=== PATIENT | female | born 1940 | race Caucasian/White ===

== ENCOUNTER 2023-07-28 17:57 | Emergency (ER) | payer MEDICARE, SELFPAY ==
[2023-07-28 18:00] VITALS: BP 112/74; PULSE 57; RESP 18; TEMP 36.8; O2SAT 95; BMI 28.3
--- NOTE | 2023-07-28 18:05 | ECG_ITS ---
[facility] Test Date: 2023-07-28 Pat Name: Lanny Zamudio Department: Room: Gender: Female Fitness Trainer: : 1940 Requested By: Timothy Miles Order Number: [id number] Jania MD: Julio Sanchez M.D. Measurements Intervals [place] Rate: 55 P: 70 [place]: 232 QRS: -65 QRSD: 145 T: 84 QT: 491 QTc: 471 Interpretive Statements SINUS BRADYCARDIA WITH FIRST DEGREE AV BLOCK LEFT AXIS DEVIATION [QRS AXIS < -30] LEFT BUNDLE BRANCH BLOCK [120+ ms QRS DURATION, 80+ ms Q/S IN V1/V2, 85+ ms R IN I/aVL/V5/V6] No previous ECG available for comparison Electronically Signed On 07-29-2023 14:29:38 CDT by Julio Sanchez M.D. [email or web address]
[2023-07-28 18:11] VITALS: BP 112/74; PULSE 54; RESP 16; O2SAT 96
--- NOTE | 2023-07-28 18:34 | CTR_ITS ---
PROCEDURE INFORMATION: Exam: CT Head Without Contrast Exam date and time: 07/28/2023 7:27 PM Age: 82 years old Clinical indication: Syncope and collapse; Patient HX: EMS arrival for syncopal episode. Patient appears confused. History of advanced dementia. TECHNIQUE: Imaging protocol: Computed tomography of the head without contrast. Radiation optimization: All CT scans at this facility use at least one of these dose optimization techniques: automated exposure control; mA and/or kV adjustment per patient size (includes targeted exams where dose is matched to clinical indication); or iterative reconstruction. COMPARISON: No relevant prior studies available. RADIATION DOSE METRICS: Total DLP (mGy-cm): 2571.08 FINDINGS: Brain: No hemorrhage. Right temporal and left occipital encephalomalacia likely from prior ischemic event. No evidence of acute infarct. Chronic white matter and senescent changes. Cerebral ventricles: No ventriculomegaly. Paranasal sinuses: Visualized sinuses are grossly clear. Mastoid air cells: No mastoid effusion. Bones: No acute fracture. Soft tissues: No acute findings. CT/CT head wo con* [id number] IMPRESSION: Remote appearing ischemic changes in the right temporal and left occipital lobes. Without prior comparison, precautionary MRI could be considered for greater sensitivity of more acute/subacute event. Chronic white matter and senescent changes.
--- NOTE | 2023-07-28 18:34 | XRR_ITS ---
PROCEDURE INFORMATION: Exam: XR Chest Exam date and time: 07/28/2023 7:13 PM Age: 82 years old Clinical indication: Pain; Patient HX: Syncopal episode; AMS TECHNIQUE: Imaging protocol: Radiologic exam of the chest. Views: 1 view. COMPARISON: No relevant prior studies available. FINDINGS: Lungs: No focal consolidation. Pleural spaces: No pleural effusion. No pneumothorax. Heart/Mediastinum: No cardiomegaly. Bones/joints: No acute findings. XR/XR chest 1V portable [id number] IMPRESSION: No acute findings.
[2023-07-28] MEDS: haloperidol inj 5 mg/mL INJ 1 mL 2 MG IVP (19:06)
[2023-07-28] MEDS: sodium chloride 0.9% 1,000 ML 999 ML IV (19:07)
[2023-07-28 19:17] LABS: Basophils # 0.1 10^3/uL (0.0-0.1); Basophils % 1.1 %; Eosinophils # 0.5 10^3/uL (0.0-0.8); Eosinophils % 5.2 %; Hematocrit 43.9 % (36-47); Lymphocytes # 2.3 10^3/uL (0.8-4.8); Lymphocytes % 26.2 %; Mean Corpuscular HGB Conc 31.9 g/dL (30-55); Mean Corpuscular Hemoglobin 28.1 pg (27-33); Monocytes # 0.5 10^3/uL (0.2-0.9); Monocytes % 5.4 %; Neutrophils # 5.45 10^3/uL (1.8-7.7); Neutrophils % 61.9 %; Nucleated Red Blood Cells % 0 %; Platelet Count 308 10^3/cmm (157-399); Red Blood Count 4.99 10^6/uL (3.85-5.65); Red Cell Distribution Width 12.7 % (12.1-15.1); White Blood Count 8.82 10^3/uL (3.29-11.43)
--- NOTE | 2023-07-28 19:25 | ED_ITS ---
HPI - General Adult 2 General: Chief complaint: General Medical Stated complaint: SYNCOPE Time Seen by Provider: 07/28/23 18:17 History of Present Illness: 82-year-old female with a history of dem entia. She presents with a syncopal episode at home. She had had a bowel movement in her undergarments, and was getting changed. She collapsed on her son, and was essentially not responsive for up to 5 minutes at least per the daughter. She was not rigid. She was breathing and had a pulse. She did not turn blue. She did not respond at all to verbal or physical stimulation, even chest rubs. She did make some gurgling sounds according to the daughter. By the time EMS arrived, she was beginning to say words, and come around. She is essentially back to baseline now. She is mildly upset that she is here, and wants to go home. Associated symptoms: Deny chest pain, dyspnea, palpitations or vomiting Review of Systems 2 General: Reports: Other (History taken from family as the patient is a poor historian) Const: Denies: fever(s) or chills ENMT: Denies: throat pain Card: Denies: chest pain or palpitations Resp: Denies: dyspnea, productive cough or non-productive cough GI: Denies: abdominal pain or vomiting Physical Exam 2 Const: COMMON NORMALS: no acute distress GENERAL APPEARANCE: frail appearing; not cooperative and not ill appearing HENMT: COMMON NORMALS: normocephalic, atraumatic and Normal external nose present HEAD & SCALP: normocephalic and atraumatic FACE & SINUS: normal facial exam and face symmetric NOSE: Normal external nose present Eye: COMMON NORMALS: Equal, round and reactive pupils present and EOMs intact bilaterally PUPIL: Yes Equal, round and reactive pupils present Chest: CHEST: Yes Symmetrical chest wall rise Resp: COMMON NORMALS: normal respiratory effort, No use of accessory muscles and clear to auscultation bilaterally AUSCULTATION: clear to auscultation bilaterally Cardio: COMMON NORMALS: regular rate and regular rhythm RATE: regular rate RHYTHM: regular rhythm HEART SOUNDS: no murmurs GI: COMMON NORMALS: Soft to palpation PALPATION: Yes Soft to palpation Extremity: COMMON NORMALS: no pedal edema Neuro: BINA COMA SCALE: document GCS findings Bina coma scale eye opening: Spontaneous [place] coma scale verbal response: Confused [place] coma scale motor response: Obey commands Bina coma scale total score: 14 S PEECH: speech normal MOTOR EXAM: Pronator motor function not present and Normal motor muscle tone present throughout Psych: ATTITUDE: Yes agitated Skin: COMMON NORMALS: no rashes or lesions noted GENERAL SKIN EXAM: no rashes or lesions noted Course 2 Vital Signs: Vital signs: Vital Signs Temperature 98.3 F 07/28/23 22:06 Pulse Rate 64 07/28/23 22:06 Respiratory Rate 18 07/28/23 22:06 Blood Pressure 134/72 07/28/23 22:06 Pulse Oximetry 94 07/28/23 22:06 Oxygen Delivery Me thod Room Air 07/28/23 18:11 MDM - General Adult Medical Decision Making The patient was given a small dose of IV Haldol for agitation so the testing to be completed. Her neurological exam is nonfocal. Her pulse rate is low, in the 50s. Blood pressure is normal. She is afebrile. CBC is normal. Her creatinine is 2.3. Chest x-ray is normal. Head CT shows remote ischemic changes. Troponin did not elevated 2 hours. She does not have a UTI. She is essentially back to baseline in the ER. Discussed pros and cons of potential observation admission with the family. They have they will take her home and continue to pursue prison home facility avenues. She will return for any repeated episodes of syncope or worsening symptoms. Lab Data 07/28/23 19:09 07/28/23 19:09 Radiology Impressions Chest X-Ray 07/28/23 18:34 IMPRESSION: No acute findings. Head CT 07/28/23 18:34 IMPRESSION: Remote appearing ischemic changes in the right temporal and left occipital lobes. Without prior comparison, precautionary MRI could be considered for greater sensitivity of more acute/subacute event. Chronic white matter and senescent changes. Laboratory Results WBC 8.82 10^3/uL (3.29-11.43) 07/28/23 19:09 RBC 4.99 10^6/uL (3.85-5.65) 07/28/23 19:09 Hgb 14.00 g/dL (11.27-16.99) 07/28/23 19:09 Hct 43.9 % (36-47) 07/28/23 19:09 MCV 88.0 fl (85-98) 07/28/23 19:09 MCH 28.1 pg (27-33) 07/28/23 19:09 MCHC 31.9 g/dL (30-55) 07/28/23 19:09 RDW 12.7 % (12.1-15.1) 07/28/23 19:09 Plt Count 308 10^3/cmm (157-399) 07/28/23 19:09 MPV 10.0 fL (7.4-10.4) 07/28/23 19:09 Neut % (Auto) 61.9 % 07/28/23 19:09 Lymph % (Auto) 26.2 % 07/28/23 19:09 [place] % (Auto) 5.4 % 07/28/23 19:09 Eos % (Auto) 5.2 % 07/28/23 19:09 Baso % (Auto) 1.1 % 07/28/23 19:09 Neut # (Auto) 5.45 10^3/uL (1.8-7.7) 07/28/23 19:09 Lymph # (Auto) 2.3 10^3/uL (0.8-4.8) 07/28/23 19:09 [place] # (Auto) 0.5 10^3/uL (0.2-0.9) 07/28/23 19:09 Eos # (Auto) 0.5 10^3/uL (0.0-0.8) 07/28/23 19:09 Baso # (Auto) 0.1 10^3/uL (0.0-0.1) 07/28/23 19:09 Nucleated RBC % (auto) 0 % 07/28/23 19:09 Nucleated RBCs # 0.0 /100WBC 07/28/23 19:09 PT 14.00 SECONDS (12.1-14.9) 07/28/23 19:09 INR 1.05 (0.8-1.2) 07/28/23 19:09 APTT 29.0 SECONDS (23.9-36.7) 07/28/23 19:09 Sodium 138 mmol/L (136-145) 07/28/23 19:09 Potassium 4.2 mmol/L (3.5-5.1) 07/28/23 19:09 Chloride 98 mmol/L (98-107) 07/28/23 19:09 Carbon Dioxide 24 mmol/L (22-29) 07/28/23 19:09 Anion Gap 20.2 (5-19) H 07/28/23 19:09 BUN 31 mg/dL (8-23) H 07/28/23 19:09 Creatinine 2.3 mg/dL (0.5-0.9) H 07/28/23 19:09 GFR Calculation Not Reportable 07/28/23 19:09 Glucose 111 mg/dL (65-115) 07/28/23 19:09 Calculated Osmolality 293 mOsm/kg (285-295) 07/28/23 19:09 Calcium 9.8 mg/dL (8.5-10.5) 07/28/23 19:09 Total Bilirubin 0.6 mg/dL (0.15-1.2) 07/28/23 19:09 AST 23 U/L (0-32) 07/28/23 19:09 ALT 19 U/L (0-33) 07/28/23 19:09 Alkaline Phosphatase 228 U/L (35-105) H 07/28/23 19:09 Creatine Kinase 100 U/L (26-192) 07/28/23 19:09 Troponin T Baseline 43 ng/L (0-10) H 07/28/23 19:09 Troponin T 120 Minute 38.15 ng/L (0-10) H 07/28/23 21:00 Delta Troponin T -4.85 ABS# (0-10) L 07/28/23 21:00 NT-Pro-B Natriuret Pep 418 pg/mL (0-450) 07/28/23 19:09 Total Protein 7.9 g/dL (6.6-8.7) 07/28/23 19:09 Albumin 4.3 g/dL (3.5-5.2) 07/28/23 19:09 Globulin 3.6 g/dL (1.3-4.6) 07/28/23 19:09 Urine Color Yellow (Yellow) 07/28/23 19:45 Urine Appearance Cloudy (CLEAR) A 07/28/23 19:45 Urine pH 5 (5-7) 07/28/23 19:45 Ur Specific [place] 1.020 (1.005-1.030) 07/28/23 19:45 Urine Protein Neg (Negative) 07/28/23 19:45 Urine Glucose (UA) Norm (Normal) 07/28/23 19:45 Urine Ketones Negative (Negative) 07/28/23 19:45 Urine Blood Neg (Negative) 07/28/23 19:45 Urine Nitrate Negative (Negative) 07/28/23 19:45 Urine Bilirubin 1+ (Negative) H 07/28/23 19:45 Urine Urobilinogen 1 mg/dL (Negative) H 07/28/23 19:45 Ur Leukocyte Esterase Negative (Negative) 07/28/23 19:45 Urine RBC 0-4 /hpf (0-2) H 07/28/23 19:45 Urine WBC 15-25 /hpf (0-5) H 07/28/23 19:45 Ur Squamous Epith Cells 0-4 /hpf (0-5) H 07/28/23 19:45 Amorphous Sediment 1+ /hpf 07/28/23 19:45 Urine Bacteria 3+ /hpf (NONE) H 07/28/23 19:45 Hyaline Casts 5-10 /lpf H 07/28/23 19:45 Fine Granular Casts 0-4 /lpf H 07/28/23 19:45 Coarse Granular Casts 0-4 /lpf H 07/28/23 19:45 Urine Mucus 1+ /hpf 07/28/23 19:45 All radiology interpretation(s) finalized by discharge Discharge Plan Discharge Patient Disposition: Home Clinical Impression: Syncope Condition: Stable Discharge Orders: Discharge ED (Routine); Ordered 07/28/23 Ordered By: Timothy Everett Referrals: David Eng DO [Primary Care Provider] - 1-3 days Patient Instructions: Syncope (ED), Opioid Safety, Pain Management Activity Restrictions/Additional Instructions: Return for repeated episodes of syncope or passing out, significant worsening mental status, complaints of chest pain, any other concerning symptoms. Follow- up with your doctor early in the week. Proceed with planning for skilled facility placement Coding Level of Care Code ED Switchboard Receptionist for Jacobo Ochoa
[2023-07-28 19:46] LABS: INR 1.05 (0.8-1.2)
[2023-07-28 19:47] LABS: Troponin(5th) Baseline 43 ng/L (0-10)
[2023-07-28 19:56] LABS: Alanine Aminotransferase 19 U/L (0-33); Albumin Level 4.3 g/dL (3.5-5.2); Alkaline Phosphatase 228 U/L (35-105); Anion Gap 20.2 (5-19); Aspartate Amino Transferase 23 U/L (0-32); Blood Urea Nitrogen 31 mg/dL (8-23); Calcium 9.8 mg/dL (8.5-10.5); Carbon Dioxide 24 mmol/L (22-29); Chloride 98 mmol/L (98-107); Creatine Phosphokinase 100 U/L (26-192); Creatinine Clr Calc Pharmacy 18.0022; Globulin 3.6 g/dL (1.3-4.6); Glucose 111 mg/dL (65-115); NT Pro B Type Natriuretic Pept 418 pg/mL (0-450); Osmolality Calculated 293 mOsm/kg (285-295); Potassium 4.2 mmol/L (3.5-5.1); Sodium 138 mmol/L (136-145); Total Bilirubin 0.6 mg/dL (0.15-1.2); Total Protein 7.9 g/dL (6.6-8.7)
[2023-07-28 20:04] LABS: Add Urine Microscopic? YES; Bacteria Urine 3+ /hpf; Bilirubin Urine 1+ (Negative); Blood Urine Neg (Negative); Glucose Urine UA Norm (Normal); Ketones Urine Negative (Negative); Leukocyte Esterase Urine Negative (Negative); Mucus Urine 1+ /hpf; Nitrate Urine Negative (Negative); Protein Urine Neg (Negative); RBC Urine 0-4 /hpf (0-2); Squamous Epithelial Cell Urine 0-4 /hpf (0-5); Urine Appearance Cloudy (CLEAR); Urine Color Yellow (Yellow); Urobilinogen Urine 1 mg/dL (Negative); WBC Urine 15-25 /hpf (0-5); pH Urine 5 (5-7)
[2023-07-28 20:05] LABS: Add Urine Culture? Yes; Amorphous Sediment Urine 1+ /hpf; Coarse Granular Casts Urine 0-4 /lpf; Fine Granular Casts Urine 0-4 /lpf
--- NOTE | 2023-07-28 20:23 | PC.NURSE ---
pt unable to tolerate blood pressure cuff. notified.
[2023-07-28 21:04] VITALS: BP 134/72; PULSE 64; RESP 18; O2SAT 94
[2023-07-28 21:28] LABS: Troponin 5 2HR 38.15 ng/L (0-10)
[2023-07-28 21:29] LABS: Troponin 5 2HR Delta -4.85 ABS# (0-10)
[2023-07-28 22:06] VITALS: BP 134/72; PULSE 64; RESP 18; TEMP 36.8; O2SAT 94
== END 2023-07-28 22:07 | disposition home or self-care (01) ==
PROVIDERS: Emergency Provider Emergency Medicine; PCP Electrodiagnostic Medicine
DX: R55 Syncope and collapse (principal)
CPT/HCPCS: 70450; 71045; 80053; 81001; 82550; 83880; 84484; 85025; 85610; 85730; 87077; 87086; 87186; 93005; 96361; 96374; 99285; J1630; J7030

== ENCOUNTER 2024-03-27 16:18 | Emergency (ER) | payer MEDICARE, MEDICAID, SELFPAY ==
[2024-03-27 16:22] VITALS: BP 138/87; PULSE 80; RESP 16; TEMP 36.4; O2SAT 97
--- NOTE | 2024-03-27 16:29 | USR_ITS ---
PROCEDURE INFORMATION: Exam: US Duplex Right Lower Extremity Veins, Limited Exam date and time: 03/27/2024 5:23 PM Age: 83 years old Clinical indication: Pain; Leg, lower; Right; Additional info: Swelling/pain TECHNIQUE: Imaging protocol: Real-time duplex ultrasound of the right extremity with 2-D fischer scale, color Doppler flow and spectral waveform analysis including responses to compression and other maneuvers (when performed) with image documentation. Limited exam was focused on the right lower extremity veins. COMPARISON: No relevant prior studies available. FINDINGS: Right deep veins: Unremarkable. The common femoral, femoral, proximal profunda femoral, popliteal, posterior tibial and peroneal veins are patent without thrombus. Normal Doppler waveforms. Normal compressibility and/or augmentation response. Superficial veins: Greater saphenous vein at the saphenofemoral junction is patent without thrombus. Soft tissues: 3.1 x 2.3 x 3.9 cm popliteal [place]. US/[place] [id number] IMPRESSION: 1. No sonographic evidence of deep vein thrombosis. 2. 3.1 x 2.3 x 3.9 cm popliteal cyst.
--- NOTE | 2024-03-27 16:30 | W.ED.EXTPRO ---
Documented by User: RC Paula 03/27/24 16:55 HPI - Extremity Problem General: Chief complaint: Extremity Problem,Nontraumatic Stated complaint: possible blood clot RLE Time Seen by Provider: 03/27/24 16:21 Source: patient Mode of arrival: EMS Limitations: no limitations History of Present Illness: Patient is an 83-year-old female who arrives to the ED today from her [facility] with the request of a DVT rule out involving her right lower extremity. Unknown timing of onset, but EMS and patient states she is having pain and swelling involving the right lower leg. 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 She is not complaining of shortness of breath or difficulty breathing. She arrives in no acute distress with stable vital signs. She states she is rarely ambulatory but can ambulate with the help of a walker to the bathroom. No known injury to the right lower leg. She has no other complaints at this time. Patient is not a great historian secondary to her known dementia. MD Complaint: extremity pain and extremity swelling Onset (ago): unknown Pain Consistency: constant Location: right and lower extremity Radiation: none Relieving factors: nothing Exacerbating factors: walking Associated symptoms: Reports no associated symptoms; Deny chest pain, fever(s) or rash Context: history of DVT Related Data Allergies Allergy/AdvReac Type Severity Reaction Status Date / Time No Known Allergies Allergy Verified 03/27/24 16:31 Review of Systems Const: Denies: fever(s), chills, body aches, fatigue or malaise Card: Denies: chest pain Resp: Denies: dyspnea Musc: Reports: extremity pain and extremity swelling; Denies: neck pain, back pain, joint pain, joint swelling, joint redness, joint warmth or limited range of motion Skin/Breast: Denies: rash or erythema Neuro: Reports: difficulty walking (chronic-states she rarely ambulates and requires a walker); Denies: numbness in extremities or sensory changes Physical Exam Const: COMMON NORMALS: no acute distress, average body habitus, no limitations, healthy appearing, alert and well nourished GENERAL APPEARANCE: cooperative ORIENTATION/CONSCIOUSNESS: Yes awake, Yes oriented to person and Yes oriented to place Resp: COMMON NORMALS: normal respiratory effort and clear to auscultation bilaterally AUSCULTATION: clear to auscultation bilaterally Cardio: COMMON NORMALS: regular rate and regular rhythm RATE: regular rate RHYTHM: regular rhythm Extremity: COMMON NORMALS: full ROM, capillary refill normal and no joint enlargement GENERAL: Yes normal exam except as noted RIGHT LOWER EXTREMITY: Yes lower leg (edema when compared to L; palpable calf pain) Right lower leg: Yes neurovascular exam (normal) OTHER: distal pulses to bilateral LEs easily felt; sensation normal Neuro: SENSORIUM/ORIENTATION: Yes alert, Yes oriented to person and Yes oriented to place Skin: COMMON NORMALS: no rashes or lesions noted GENERAL SKIN EXAM: no rashes or lesions noted Course Vital Signs: Vital signs: Vital Signs Temperature 97.5 F L 03/27/24 16:22 Pulse Rate 75 03/27/24 17:04 Respiratory Rate 16 03/27/24 16:22 Blood Pressure 152/74 03/27/24 17:04 Pulse Oximetry 97 03/27/24 17:04 Discharge Plan Discharge Condition: Stable Referrals: David Eng DO [Primary Care Provider] - Sign Out Sign Out Data: Patient Sign Out occurred on 03/27/24 at 17:01. Patient's care was discussed, and care was transferred from RC Paula to RC Agrawal. Coding Level of Care Code ED Environmental Resource Specialist for Chg Fwd Documented by User: RC Agrawal 03/27/24 17:40 HPI - Extremity Problem General: Chief complaint: Extremity Problem,Nontraumatic Stated complaint: possible blood clot RLE Time Seen by Provider: 03/27/24 16:21 Related Data Allergies Allergy/AdvReac Type Severity Reaction Status Date / Time No Known Allergies Allergy Verified 03/27/24 16:31 Course Vital Signs: Vital signs: Vital Signs Temperature 97.5 F L 03/27/24 16:22 Pulse Rate 75 03/27/24 17:04 Respiratory Rate 16 03/27/24 16:22 Blood Pressure 152/74 03/27/24 17:04 Pulse Oximetry 97 03/27/24 17:04 MDM - Extremity (Nontraumatic) Medical Decision Making Patient has history of dementia, presented to the ED by ambulance [facility] with concerns swelling of right lower extremity, there were concerns of a blood clot. Ultrasound ruled this out, she had no complaints of shortness of breath or chest pain no concern for PE. Family in the room was present when I discussed discharge plan, informed them to return if there is any worsening swelling or pain reported but is not significantly out of proportion to the exam. There is no reports of trauma that would require any further imaging at this time. Her vitals have been stable throughout ED course. There was evidence of a Penaloza's cyst on the ultrasound, potential etiology is a rupture that is caused her pain, though on recheck she was stating the pain was farther up her leg, towards the right lateral hip. Reports that this pain hour and consistent with her previous reports as she was stating it was to the right lower leg on arrival. Dementia could likely be playing a role with this, however with any objective worsening informed family to have the patient seen again in the ED. They agree with discharge plan at this time, awaiting ambulance back to [facility]. All radiology interpretation(s) finalized by discharge Discharge Plan Discharge Condition: Stable Referrals: David Eng, DO [Primary Care Provider] - Sign Out Sign Out Data: Patient Sign Out occurred on 03/27/24 at 17:01. Patient's care was discussed, and care was transferred from RC Paula to RC Agrawal. Coding Level of Care Code ED Environmental Resource Specialist for Jacobo Ochoa
[2024-03-27 17:04] VITALS: BP 152/74; PULSE 75; O2SAT 97
[2024-03-27 18:07] VITALS: BP 149/80; PULSE 85; O2SAT 96
[2024-03-27 19:08] VITALS: BP 147/75; PULSE 85; O2SAT 98
--- NOTE | 2024-03-27 19:47 | PC.NURSE ---
Patient up for discharge and waiting for ride back to local long-term. Patient requested vitals to removed.
--- NOTE | 2024-03-27 20:05 | PC.NURSE ---
Nurse Freya from [facility] notified of patient discharge status.
== END 2024-03-28 00:27 | disposition home or self-care (01) ==
PROVIDERS: Emergency Provider Physician Assistant; PCP Electrodiagnostic Medicine
DX: M79.604 Pain in right leg (principal)
CPT/HCPCS: 93971; 99284

== ENCOUNTER 2024-12-11 21:48 | Emergency (ER) | payer MEDICARE, MEDICAID, SELFPAY ==
--- OUTSIDE RECORDS SUMMARY | 2024-12-11 21:51 | XMS_ITS | Encounter Summary ---
Author Organization [facility] [place] Address [address] [place] [address] Phone Care Team Providers Care Cake Icer And Packer Name Role Phone David Eng DO Primary Care Provider [phone] Encounter Details Date Type Department Care Team (Late st Contact Info) Description 04/10/2019 Orders Only [facility] [address] [place] [address] Chronic kidney disease, stage 4 (severe) (HCC) Social History Tobacco Use Types Packs/Day Years Used Date Smoking Tobacco: Former Comments Unknown Sex and Gender Information Value Date Recorded Sex Assigned at Not on file Legal Sex Female 12:39 PM EST Gender Identity Not on file Sexual Orientation Not on file documented as of this encounter Plan of Treatment Not on file documented as of this encounter Visit Diagnoses Diagnosis Chronic kidney disease, stage 4 (severe) (HCC) documented in this encounter Care Teams Cake Icer And Packer Relationship Specialty Start Date End Date David Eng DO PCP - General Family Medicine 04/16/19 documented as of this encounter
--- OUTSIDE RECORDS SUMMARY | 2024-12-11 21:51 | XMS_ITS | Continuity of Care Document ---
Author Organization [employer] ([facility]) Address [address] [place] [address] Insurance Providers Payer Plan Claims Address Claims Phone Policy Number Group Number Relation Employer Guarantor Name Guarantor Guarantor Address Guarantor Phone [employer] [address] [address], [place] [address] tel:[phone] Self Lanny Zamudio [address] [place] [id number] [employer] [id number] HMO [address] [address], [place] [address] tel:[phone] [id number] [phone] Self Lanny Zamudio [address] [place] [id number] Problems Condition ICD9 code ICD10 code SNOMED code Start Date End Date S tatus Chronic kidney disease, stage 3 unspecified N18.30 07/29/2023 Activ e Hypothyroidism, unspecified E03.9 07/29/2023 Active Bronchitis, not specified as acute or chronic J40 10/19/2024 Activ e Results Test Result Date/Time Value / Unit Interp. Refere nce Range COVID-19 Test Viral Antigen null flavor [null] 04/27/2024 06:00 PM See note NEG COVID-19 Test Viral Antigen COVID-19 Test Viral Antigen null flavor [null] 04/20/2024 06:00 PM See note NEG COVID-19 Test Viral Antigen COVID-19 Test Viral Antigen null flavor [null] 12/16/2023 05:00 PM See note NEG COVID-19 Test Viral Antigen COVID-19 Test Viral Antigen null flavor [null] 12/09/2023 05:00 PM See note NEG COVID-19 Test Viral Antigen COVID-19 Test Viral Antigen null flavor [null] 12/02/2023 05:00 PM See note NEG COVID-19 Test Viral Antigen COVID-19 Test Viral Antigen null flavor [null] 11/25/2023 05:00 PM See note NEG COVID-19 Test Viral Antigen COVID-19 Test Viral Antigen null flavor [null] 11/18/2023 05:00 PM See note NEG COVID-19 Test Viral Antigen COVID-19 Test Viral Antigen null flavor [null] 11/11/2023 05:00 PM See note NEG COVID-19 Test Viral Antigen Allergies, adverse reactions, alerts No known allergies and adverse reactions Immunizations Vaccine Route Date Status Influenza Vaccine Unassigned Route of Administration 1 Refused RSV Vaccine Unassigned Route of Administration 2024 Refused Influenza Vaccine Unassigned Route of Administration 1 Refused Influenza Vaccine Unassigned Route of Administration 1 Completed COVID-19 Vaccine Unassigned Route of Administration Completed Medications Medication Instructions Route Dosage Frequency Start Date Stop Date Indications Status benzonatate 100 mg capsule (benzonatate) 1 cap, oral, Twice A Day - PRN, Administer 1 cap po BID PRN cough Sonia Zamora oral 1.0 12.0 h 2024 Active furosemide 20 mg tablet (furosemide) 1 tab, oral, Once A Day Every Other Day oral 1.0 1.0 d 2024 Hypertensive chronic kidney disease with stage 1 through stage 4 chronic kidney disease, or unspecified chronic kidney disease Active lisinopril 20 mg tablet (lisinopril) 1, oral, Once A Day oral 1.0 1.0 d 2024 Active albuterol sulfate 2.5 mg /3 mL (0.083 %) solution for nebulization (albuterol sulfate) 1 inh, inhalation, Three Times A Day - PRN, Clinical indication dyspnea inhalatio n 1.0 8.0 h 10/24 Active prednisone 20 mg tablet (prednisone) 1, oral, Once A Day oral 1.0 1.0 d 10/24 Active Arexvy (PF) (rsvpref3 antigen-as01e (pf)) 120 mcg/0.5 mL suspension for reconstitution (Arexvy (PF) (rsvpref3 antigen-as01e (pf))) 0.5ml, intramuscular , Once - One Time intramusc ular 1.0 10/13 Active Afluria 9584-1514 (3yr up)(PF) (flu vac [id number] 36mos up(pf)) 45 mcg (15 mcg x 3)/0.5 m syringe (Afluria (3yr up)(PF) (flu vac [id number] 36mos up(pf))) 0.5ml, intramuscular , Once - One Time intramusc ular 1.0 12/08 Active Afluria 3105-3794 (3yr up)(PF) (flu vac [id number] 36mos up(pf)) 45 mcg (15 mcg x 3)/0.5 m syringe (Afluria (3yr up)(PF) (flu vac mq1443-44 36mos up(pf))) 0.5ml, intramuscular , Once - One Time intramusc ular 1.0 12/08 Active Vital Signs Date Vital Result Comment 03/28/2024 05:12 PM Body Weight (52040-2) 155.8 [lb_av ] Body Mass Index (60008-7) 30.42 kg/m2 04/01/2024 01:27 PM Temperature (8310-5) 97.8 [degF] Oxygen Saturation (22720-4) 97 % Respiratory Rate (9279-1) 17 /min Heart Rate (8867-4) 82 /min Blood Pressure Systolic (8480-6) 149 mm[Hg] Blood Pressure Diastolic (8462-4) 82 mm[Hg] 04/08/2024 01:54 PM Temperature (8310-5) 98.3 [degF] Oxygen Saturation (83198-2) 97 % Respiratory Rate (9279-1) 17 /min Heart Rate (8867-4) 65 /min Blood Pressure Systolic (8480-6) 137 mm[Hg] Blood Pressure Diastolic (8462-4) 63 mm[Hg] 04/15/2024 05:00 PM Temperature (8310-5) 98 [degF] Oxygen Saturation (74157-6) 95 % Respiratory Rate (9279-1) 18 /min Heart Rate (8867-4) 82 /min Blood Pressure Systolic (8480-6) 142 mm[Hg] Blood Pressure Diastolic (8462-4) 80 mm[Hg] 04/22/2024 09:03 AM Temperature (8310-5) 98.8 [degF] Oxygen Saturation (09461-0) 100 % Respiratory Rate (9279-1) 19 /min Heart Rate (8867-4) 83 /min Blood Pressure Systolic (8480-6) 153 mm[Hg] Blood Pressure Diastolic (8462-4) 78 mm[Hg] 04/25/2024 09:58 AM Body Weight (63950-2) 154 [lb_av] Body Mass Index (09997-5) 30.07 kg/m2 04/29/2024 09:48 AM Temperature (8310-5) 96.4 [degF] Oxygen Saturation (62347-2) 99 % Respiratory Rate (9279-1) 15 /min Heart Rate (8867-4) 56 /min Blood Pressure Systolic (8480-6) 168 mm[Hg] Blood Pressure Diastolic (8462-4) 90 mm[Hg] 05/06/2024 09:17 AM Temperature (8310-5) 97.9 [degF] Oxygen Saturation (41431-0) 96 % Respiratory Rate (9279-1) 17 /min Heart Rate (8867-4) 71 /min Blood Pressure Systolic (8480-6) 145 mm[Hg] Blood Pressure Diastolic (8462-4) 63 mm[Hg] 05/13/2024 02:43 PM Temperature (8310-5) 98.2 [degF] Oxygen Saturation (41908-9) 95 % Respiratory Rate (9279-1) 16 /min Heart Rate (8867-4) 66 /min Blood Pressure Systolic (8480-6) 105 mm[Hg] Blood Pressure Diastolic (8462-4) 56 mm[Hg] 05/20/2024 11:18 AM Temperature (8310-5) 97.8 [degF] Oxygen Saturation (13144-8) 98 % Respiratory Rate (9279-1) 17 /min Heart Rate (8867-4) 65 /min Blood Pressure Systolic (8480-6) 171 mm[Hg] Blood Pressure Diastolic (8462-4) 77 mm[Hg] 05/26/2024 05:37 PM Body Weight (37251-5) 157.4 [lb_av ] Body Mass Index (36841-7) 30.74 kg/m2 05/27/2024 05:13 PM Temperature (8310-5) 96.2 [degF] Oxygen Saturation (17275-1) 95 % Respiratory Rate (9279-1) 15 /min Heart Rate (8867-4) 74 /min Blood Pressure Systolic (8480-6) 130 mm[Hg] Blood Pressure Diastolic (8462-4) 76 mm[Hg] 06/03/2024 11:28 AM Temperature (8310-5) 96.1 [degF] Oxygen Saturation (23818-6) 98 % Respiratory Rate (9279-1) 17 /min Heart Rate (8867-4) 65 /min Blood Pressure Systolic (8480-6) 165 mm[Hg] Blood Pressure Diastolic (8462-4) 96 mm[Hg] 06/10/2024 04:35 PM Temperature (8310-5) 97.9 [degF] Oxygen Saturation (54195-9) 96 % Respiratory Rate (9279-1) 17 /min Heart Rate (8867-4) 86 /min Blood Pressure Systolic (8480-6) 151 mm[Hg] Blood Pressure Diastolic (8462-4) 79 mm[Hg] 06/17/2024 09:24 AM Temperature (8310-5) 97.8 [degF] Oxygen Saturation (49548-4) 95 % Respiratory Rate (9279-1) 14 /min Heart Rate (8867-4) 67 /min Blood Pressure Systolic (8480-6) 123 mm[Hg] Blood Pressure Diastolic (8462-4) 84 mm[Hg] 06/24/2024 02:56 PM Temperature (8310-5) 97.9 [degF] Oxygen Saturation (37189-5) 96 % Respiratory Rate (9279-1) 17 /min Heart Rate (8867-4) 67 /min Blood Pressure Systolic (8480-6) 128 mm[Hg] Blood Pressure Diastolic (8462-4) 77 mm[Hg] 06/25/2024 06:01 PM Body Weight (32706-2) 156.6 [lb_av ] Body Mass Index (36169-9) 30.58 kg/m2 09/30/2024 10:35 AM Body Weight (44233-5) 159.8 [lb_av ] Body Mass Index (10832-1) 31.21 kg/m2 09/28/2024 03:18 PM Body Weight (91682-4) 159.6 [lb_av ] Body Mass Index (46002-0) 31.17 kg/m2 10/26/2024 03:45 PM Body Weight (50148-2) 161.6 [lb_av ] Body Mass Index (98021-0) 31.56 kg/m2 10/07/2024 09:54 AM Temperature (8310-5) 97.3 [degF] Oxygen Saturation (96649-9) 95 % Respiratory Rate (9279-1) 20 /min Heart Rate (8867-4) 70 /min Blood Pressure Systolic (8480-6) 171 mm[Hg] Blood Pressure Diastolic (8462-4) 85 mm[Hg] 09/30/2024 05:44 PM Temperature (8310-5) 98 [degF] Oxygen Saturation (24083-9) 94 % Respiratory Rate (9279-1) 19 /min Heart Rate (8867-4) 78 /min Blood Pressure Systolic (8480-6) 156 mm[Hg] Blood Pressure Diastolic (8462-4) 82 mm[Hg] 10/28/2024 02:43 PM Temperature (8310-5) 97.7 [degF] Oxygen Saturation (42850-0) 92 % Respiratory Rate (9279-1) 16 /min Heart Rate (8867-4) 84 /min Blood Pressure Systolic (8480-6) 137 mm[Hg] Blood Pressure Diastolic (8462-4) 86 mm[Hg] 10/14/2024 02:43 PM Temperature (8310-5) 97.7 [degF] Oxygen Saturation (28423-0) 94 % Respiratory Rate (9279-1) 16 /min Heart Rate (8867-4) 70 /min Blood Pressure Systolic (8480-6) 149 mm[Hg] Blood Pressure Diastolic (8462-4) 83 mm[Hg] 10/21/2024 01:09 PM Temperature (8310-5) 98.4 [degF] Oxygen Saturation (31799-4) 97 % Respiratory Rate (9279-1) 17 /min Heart Rate (8867-4) 79 /min Blood Pressure Systolic (8480-6) 117 mm[Hg] Blood Pressure Diastolic (8462-4) 86 mm[Hg] 09/29/2024 04:02 PM Body Weight (27621-3) 159 [lb_av] Body Mass Index (57362-1) 31.05 kg/m2 11/04/2024 03:53 PM Temperature (8310-5) 97.3 [degF] Oxygen Saturation (25232-4) 94 % Respiratory Rate (9279-1) 17 /min Heart Rate (8867-4) 69 /min Blood Pressure Systolic (8480-6) 140 mm[Hg] Blood Pressure Diastolic (8462-4) 81 mm[Hg] 09/09/2024 01:50 PM Temperature (8310-5) 98 [degF] Oxygen Saturation (28142-0) 100 % Respiratory Rate (9279-1) 16 /min Heart Rate (8867-4) 68 /min Blood Pressure Systolic (8480-6) 167 mm[Hg] Blood Pressure Diastolic (8462-4) 73 mm[Hg] 09/16/2024 10:52 AM Temperature (8310-5) 97.2 [degF] Oxygen Saturation (25701-5) 94 % Respiratory Rate (9279-1) 17 /min Heart Rate (8867-4) 69 /min Blood Pressure Systolic (8480-6) 165 mm[Hg] Blood Pressure Diastolic (8462-4) 73 mm[Hg] 08/25/2024 01:48 PM Body Weight (42989-8) 156 [lb_av] Body Mass Index (13866-8) 30.46 kg/m2 2024 02:09 PM Temperature (8310-5) 99.8 [degF] Oxygen Saturation (98521-6) 98 % Respiratory Rate (9279-1) 20 /min Heart Rate (8867-4) 66 /min Blood Pressure Systolic (8480-6) 151 mm[Hg] Blood Pressure Diastolic (8462-4) 88 mm[Hg] 09/25/2024 09:39 AM Body Weight (78113-7) 161.8 [lb_av ] Body Mass Index (67330-3) 31.6 kg/m2 09/02/2024 03:18 PM Temperature (8310-5) 98 [degF] Oxygen Saturation (11565-8) 95 % Respiratory Rate (9279-1) 17 /min Heart Rate (8867-4) 82 /min Blood Pressure Systolic (8480-6) 139 mm[Hg] Blood Pressure Diastolic (8462-4) 75 mm[Hg] 11/11/2024 03:16 PM Temperature (8310-5) 97.5 [degF] Oxygen Saturation (77209-2) 98 % Respiratory Rate (9279-1) 17 /min Heart Rate (8867-4) 74 /min Blood Pressure Systolic (8480-6) 129 mm[Hg] Blood Pressure Diastolic (8462-4) 70 mm[Hg] 11/18/2024 12:53 PM Temperature (8310-5) 97.3 [degF] Oxygen Saturation (49331-1) 100 % Respiratory Rate (9279-1) 18 /min Heart Rate (8867-4) 89 /min Blood Pressure Systolic (8480-6) 164 mm[Hg] Blood Pressure Diastolic (8462-4) 79 mm[Hg] 11/24/2024 08:14 AM Temperature (8310-5) 97.3 [degF] 11/25/2024 11:14 AM Body Weight (24770-6) 160.8 [lb_av ] Body Mass Index (39521-5) 31.4 kg/m2 11/25/2024 07:55 PM Temperature (8310-5) 97.8 [degF] Oxygen Saturation (12557-5) 95 % Respiratory Rate (9279-1) 16 /min Heart Rate (8867-4) 80 /min Blood Pressure Systolic (8480-6) 141 mm[Hg] Blood Pressure Diastolic (8462-4) 84 mm[Hg] 12/02/2024 08:28 AM Temperature (8310-5) 98.3 [degF] Oxygen Saturation (57702-0) 98 % Respiratory Rate (9279-1) 20 /min Heart Rate (8867-4) 85 /min Blood Pressure Systolic (8480-6) 146 mm[Hg] Blood Pressure Diastolic (8462-4) 71 mm[Hg] 12/08/2024 06:59 PM Temperature (8310-5) 97.6 [degF] 12/09/2024 01:52 PM Temperature (8310-5) 97.6 [degF] 12/09/2024 01:53 PM Oxygen Saturation (10243-1) 98 % Respiratory Rate (9279-1) 18 /min Heart Rate (8867-4) 80 /min Blood Pressure Systolic (8480-6) 142 mm[Hg] Blood Pressure Diastolic (8462-4) 72 mm[Hg] 12/09/2024 09:13 PM Temperature (8310-5) 98.3 [degF] 12/10/2024 08:48 AM Temperature (8310-5) 98 [degF] 12/10/2024 07:10 PM Temperature (8310-5) 97.5 [degF] Social History No smoking Hx information available Encounters Type CPT Code Date Location Provider Indication s encounter report 07/29/2023 02:1 9 PM - 03/27/2024 04:16 PM Goldy Segura DO 01
--- OUTSIDE RECORDS SUMMARY | 2024-12-11 21:51 | XMS_ITS | Data Portability ---
Author Organization [facility] Kirti Siegel [facility] Address [address] [address] Assessment No assessment recorded. Plan of Treatment Reminders Order Date Submit Date Provider Last Modified By Organization Details Last Modified Time Details Appointments None record ed. Lab None record ed. Referral None record ed. Procedures None record ed. Surgeries None record ed. Imaging None record ed. Medication Orders None record ed. Patient TargetsNo targets recorded. Patient Instructions Encounter Date Encounter Id Patient Instructions Last Modified By Organization Details Last Modified Time 08/13/2024 [id number] Doing well, mood good. No issues per staff. [email or web address] Not available 08/13/2024 14:24:40 09/17/2024 [id number] GFR in August 24, stable. Blood pressure high with occ lows, no changes made. [email or web address] Not available 09/17/2024 12:02:37 10/12/2024 [id number] Doing well. Cr i s stable at 1.9 [email or web address] Not available 10/12/2024 14:39:54 10/19/2024 [id number] tx with prednisone 20mg x 5 days. albuterol nebulizer x 5days. [email or web address] Not available 10/19/2024 15:31:33 11/02/2024 [id number] No issues per staff, mood good. [email or web address] Not available 11/02/2024 13:52:02 Reason for Referral None Reported. Problems Name Problem SNOMED Code Status Onset Date Resolution Date Notes Provider Name and Address Organization Details Recorded Time Hyperten sive disorder 96029332 Completed 201306/24/2013 Hyperten anne-marie - Status is Inactive ; 06/25/19 14 10:31AM by Jesse Harrison MD, Annotati on/Adden dum; Promoted ; acuity set as *; Not Available [facility] 3 03:18:14 Kidney disease 09057011 Active 2015 Kidney Disease; 07/21/19 16 9:50AM by Roberta Zamudio LPN, Office Visit; Promoted ; acuity set as *; Not Available [facility] 3 03:18:14 Hypothyr oidism 81553010 Active 2021 HYPOTHYR OIDISM; Recorded 07/18/19 22 11:25AM by Marlon Mancia al Summary; Promoted ; acuity set as *; Not Available [facility] 3 03:18:14 Severe dementia 56593711645 4105 Active 2023 David Eng, [address], [address] [place] [address] , [facility] 4 18:33:11 [facility] hyperten anne-marie 68037190 Active [address], [address] [place] [address] , [facility] 4 18:38:10 Chronic kidney disease stage 3 179166635 Active [address], [address] [place] [address] , [facility] 4 18:38:12 Inapprop riate sexual behavior 738744324 Active 2023 LUCIE dinh [facility] 4 14:04:33 Edema of left lower leg 048279732 Active 2024 LUCIE dinh [facility]CV[facility]ha 5 15:38:20 Need for personal care assistan 28412294964 753445 Active 2024 LUCIE dinh [facility], LSivakumar. 5 11:34:55 Problem Notes None recorded. Medical Equipment None Reported. Allergies No known drug allergies Medications Name Sig Start Date Stop Date Status Note LastModified by Organization Details LastModified Time atorvasta tin 40 mg tablet 1 tablet every day in the evening active Not Available Not Available No t Available carvedilo l 6.25 mg tablet TAKE 1 TABLET TWICE DAILY active Not Available Not Available No t Available donepezil 10 mg tablet TAKE 1 TABLET BY MOUTH EVERY DAY FOR MEMORY 07/09 completed Not Available Not Available Not Available lisinopri l 20 mg tablet active Not Available Not Available Not Available sertralin e 100 mg tablet active Not Available Not Available Not Available allopurin ol 100 mg tablet TAKE 1 TABLET EVERY DAY active Not Available Not Available No t Available aspirin 81 mg tablet,de layed release Take 1 tablet every day by oral route. active Not Available Not Available No t Available tramadol 50 mg tablet Take 1 tablet every day by oral route at bedtime. 07/09 completed Not Available Not Available Not Available triamcino lone acetonide 0.1 % topical cream APPLY A THIN LAYER TO THE AFFECTED AREA(S) BY TOPICAL ROUTE 2 TIMES PER DAY 07/09 completed Not Available Not Available Not Available levothyro xine 100 mcg tablet TAKE 1 TABLET EVERY DAY active Not Available Not Available No t Available nifedipin e ER 60 mg tablet,ex tended release 24 hr active Not Available Not Available Not Available cephalexi n 500 mg capsule active Not Available Not Available Not Available erythromy rita 5 mg/gram (0.5 %) eye ointment APPLY A 1 CM RIBBON INTO THE LOWER CONJUNCT IVAL SAC(S) OF THE AFFECTED EYE(S) 5 TIMES PER DAY active Not Available Not Available No t Available lisinopri l 10 mg tablet Take 1 tablet every day by oral route. active Not Available Not Available No t Available sertralin e 25 mg tablet TAKE 1 TABLET EVERY DAY active Not Available Not Available No t Available allopurin ol 300 mg tablet daily 07/09 completed 8; Recorded 06/20/19 16 2:03PM by Roberta Zamudio LPN (Authori katie through Jesse Harrison MD), Refill Request; Refill Quantity : 90; Tablet; Not Available Not Available Not Available hydrochlo rothiazid e 25 mg tablet Take 1 tablet every day by oral route. 07/09 completed nely/rb; 8; Recorded 04/28/19 16 9:09AM by Roberta Zamudio LPN (Authori zed through Jesse Harrison MD), Refill Request; Refill Quantity : 30; Tablet; Not Available Not Available Not Available furosemid e 20 mg tablet TAKE 1 TABLET EVERY DAY active Not Available Not Available No t Available levofloxa rita 500 mg tablet active Not Available Not Available No t Available nifedipin e ER 60 mg tablet,ex tended release TAKE 1 TABLET EVERY DAY active Not Available Not Available No t Available lisinopri l 40 mg tablet active Not Available Not Available Not Available sertralin e 50 mg tablet active Not Available Not Available Not Available loratadin e 10 mg tablet active Not Available Not Available Not Available Laxative (bisacody l) 5 mg tablet,de layed release active Not Available Not Available Not Available donepezil 10 mg disintegr ating tablet DISSOLVE 1 TABLET ON THE TONGUE ONE TIME DAILY active Not Available Not Available No t Available furosemid e daily 07/09 completed DM/MG; 53575; Recorded 09/30/19 22 2:25PM by Dasha Whitehead (Authori zed through Goldy Segura DO), Annotati on/Adden dum; Mail Order Quantity : 90 Tablet; Refill Quantity : 30; Tablet; Not Available Not Available Not Available carvedilo l twice daily 07/09 completed DM/MG; 98197; Recorded 09/30/19 22 2:25PM by Dasha Whitehead (Authori zed through Goldy Segura DO), Annotati on/Adden dum; Mail Order Quantity : 180 Tablet; Refill Quantity : 0; Not Available Not Available Not Available lisinopri l daily 07/09 completed 8; Recorded 06/16/19 16 12:17PM by Roberta Zamudio LPN (Authori zed through Jesse Harrison MD), Refill Request; Refill Quantity : 90; Tablet; Not Available Not Available Not Available Aspirin [facility] 07/09 completed Recorded 03/22/19 10:34AM by Alexandria Bugress RN, Office Visit; Not Available Not Available Not Available [facility] Levothyro xine Sodium daily 07/09 completed DM/MG; 26341; Recorded 09/30/19 2:29PM by Dasha Whitehead (Authori katie through David Eng , DO), Annotati on/Adden dum; Mail Order Quantity : 90 Tablet; Refill Quantity : 30; Tablet; Not Available Not Available Not Available donepezil daily 07/09 completed DM/Mg; 51725; Recorded 12/19/19 12:19PM by Dasha Whitehead (Authori katie through David Eng , DO), Refill Request; Mail Order Quantity : 90 Tablet; Refill Quantity : 30; Tablet; Not Available Not Available Not Available Nifedipin e ER daily 07/09 completed DM/MG; 66379; Recorded 09/30/19 2:30PM by Dasha Whitehead (Authori katie through David Eng , DO), Annotati on/Adden dum; Mail Order Quantity : 90 Tablet; Refill Quantity : 30; Tablet; Not Available Not Available Not Available Calmosept ine 0.44 %-20.6 % topical ointment active Not Available Not Available Not Available Vitals Date Recorded Body height Body mass index (BMI) Body weight Heart rate Respiratory rate Body temperature Oxygen saturation Oxygen saturation in Arterial blood by Pulse oximetry Systolic And Diastolic Provider Name and Address Organization Details Last Updated DateTime 5 152.4 cm 30.5 kg/m2 13408.4 1 g 81 /min 20 /min 97.4 [degF] 97 % 97 % 117/63 mm[Hg] LUCIE DUBON [facility] L[facility]LV[facility]haCV[facility]ha 5 14:23:06 Date Recorded Body height Body mass index (BMI) Body weight Heart rate Respiratory rate Body temperature Oxygen saturation Oxygen saturation in Arterial blood by Pulse oximetry Systolic And Diastolic Provider Name and Address Organization Details Last Updated DateTime 5 152.4 cm 30.5 kg/m2 41978.4 1 g 69 /min 17 /min 97.2 [degF] 94 % 94 % 165/73 mm[Hg] [facility]E [facility] 5 11:58:46 Date Recorded Body height Body mass index (BMI) Body weight Heart rate Respiratory rate Body temperature Oxygen saturation Oxygen saturation in Arterial blood by Pulse oximetry Systolic And Diastolic Provider Name and Address Organization Details Last Updated DateTime 5 152.4 cm 31.1 kg/m2 43469.1 9 g 70 /min 20 /min 97.3 [degF] 95 % 95 % 171/85 mm[Hg] [facility]CIE [facility] 5 14:37:59 Date Recorded Body height Body mass index (BMI) Body weight Heart rate Respiratory rate Body temperature Oxygen saturation Oxygen saturation in Arterial blood by Pulse oximetry Systolic And Diastolic Provider Name and Address Organization Details Last Updated DateTime 5 152.4 cm 31.1 kg/m2 91632.1 9 g 70 /min 16 /min 97.7 [degF] 94 % 94 % 149/83 mm[Hg] LU[facility]E [facility] 5 15:29:13 Date Recorded Body height Body mass index (BMI) Body weight Heart rate Respiratory rate Body temperature Oxygen saturation Oxygen saturation in Arterial blood by Pulse oximetry Systolic And Diastolic Provider Name and Address Organization Details Last Updated DateTime 5 152.4 cm 31.4 kg/m2 15857.3 7 g 84 /min 16 /min 97.7 [degF] 92 % 92 % 137/86 mm[Hg] [facility] 5 13:49:44 Social History None recorded. Functional Status Question Answer Note LastModified by Organizat ion Details LastModified Time Do you use any illicit or recreational drugs? No [email or web address] Information not available 06/06/2022 Do you or have you ever used any other forms of tobacco or nicotine? No Information not available 06/06/2022 What is your level of alcohol consumption? None [email or web address] Information not available 06/06/2022 Mental Status None recorded. Family History Nothing Reported. Medical History No medical history recorded. Gynecological HistoryNo gynecological history recorded. Obstetrics History GPAL:G 0 P 0 0 0 0 Immunizations Vaccine Type Date Status Note Provider Nam e and Address Organization Details Recorded Time Pneumococcal conjugate PCV 13 6 completed Not Available [facility] 11/02/2024 12:06:17 Tdap 6 completed Not Available [facility] 09/22/2022 02:33:24 Past Encounters Encounter ID Performer Location Encounter Start Date Encounter Closed Date Diagnosis/Indication Diagnosis SNOMED-CT Code Diagnosis ICD10 Code Diagnosis IMO Codes Diagnosis Note [id number] David Eng DO [facility] ([facility]) [address] [place] [phone] 06/06/2022 12:15:33 06/11/2022 17:57:06 Pruritic rash 82940942 L28.2 Adult heal th examination 613840843 Z00.00 I counseled patient on diet, exercise, weight, and mental health. We discussed appropriat e cancer screenings . All questions were addressed. We will obtain wellness labs with phone followup. Cardiomyopathy 69599648 I42.9 hx of. will get labs. Alzheimer's disease 2692 9004 G30.9 progressin g, family does not want any new medication s. counseled on expectatio ns. recommend C eval and home saftey eval. Chronic ki dney disease stage 4 383473411 N18.4 labs today. counseled Need for p ersonal care assistance 0241712638 8076022 Z74.1 Frail elderly 458271494 R54 Walking disability 40698 8008 R26.2 [id number] David Eng DO [facility] ([facility]) [address] [place] [phone] 07/10/2023 17:13:43 07/10/2023 18:02:27 Severe dementia 0441274888 15340 F03.C2 Patient's dementia has progressed significan tly since 1 year ago. She now has severe dementia without the ability to control her emotions. She is not oriented to person place or time. Family unable to continue to provide care at home even with 24/7 care. I agree with need for placement for long-term fpc care and a dementia facility. Patient cannot they have herself or feed herself. She is not able to cook or clean. She does ambulate with a walker. She can use the bathroom herself at times. We will continue her on donepezil and sertraline . Will get labs today A Care Coordinati on Assessment form was filled out as part of this patient's office visit today. Hypothyroidism 48883943 E03.9 Stable. Continue current dosage of Levothyrox ine. We will repeat Thyroid labs with phone followup. Essential hypertension 86413653 I10 Stop hydrochlor othiazide. Continue nifedipine , lisinopril , Carvedilol . Chronic ki dney disease stage 3 766397014 N18.30 Repeat labs today. Stop allopurino l. [id number] Goldy Segura DO [facility] ([facility]) [address] [place] [address] 5 07/30/2023 08:27:25 08/06/2023 10:22:39 Chronic kidney disease stage 3 559711159 N18.30 Severe dementia 39052266 01 62615 F03.C2 Essential hypertension 30818478 I10 [id number] Goldy Segura DO [facility] ([facility]) [address] [place] [address] 5 09/03/2023 08:18:44 09/03/2023 18:02:07 Severe dementia 7165996669 11931 F03.C2 Chronic ki dney disease stage 3 844732620 N18.30 Essential hypertension 08400165 I10 [id number] Goldy Segura DO [facility] ([facility]) [address] [place] [address] 5 10/01/2023 09:23:55 10/01/2023 16:24:10 Chronic kidney disease stage 3 802538767 N18.30 Essential hypertension 63005268 I10 Severe dementia 16512479 01 46283 F03.C2 [id number] Goldy Segura DO [facility]) [address] [place] [address] 5 11/07/2023 08:26:41 11/07/2023 16:12:42 Severe dementia 7569912054 57712 F03.C2 Chronic ki dney disease stage 3 894923057 N18.30 Essential hypertension 27202852 I10 [id number] Goldy Segura [facility] ([facility]) [address] [place] [address] 5 11/26/2023 08:35:59 11/26/2023 14:58:08 Severe dementia 8692481542 81043 F03.C2 Chronic ki dney disease stage 3 771643189 N18.30 Essential hypertension 82349021 I10 [id number] Goldy Segura [facility] ([facility]) [address] [place] [address] 5 12/10/2023 11:51:49 12/10/2023 17:18:37 Severe dementia 8775408444 71438 F03.C2 Inappropri ate sexual behavior 792835873 F65.9 [id number] Goldy Segura [facility] ([facility]) [address] [place] [address] 5 12/31/2023 13:23:30 01/01/2024 10:31:19 Inappropriate sexual behavior 866502145 F65.9 Severe dementia 32144139 01 47521 F03.C2 [id number] Goldy Segura [facility] ([facility]) [address] [place] [address] 5 02/18/2024 08:19:05 03/02/2024 16:47:45 Chronic kidney disease stage 3 345373654 N18.30 Severe dementia 50493468 01 52017 F03.C2 Essential hypertension 29254664 I10 [id number] Goldy Segura [facility] ([facility]) [address] [place] [address] 5 03/09/2024 12:30:36 03/12/2024 08:26:29 Severe dementia 0252338576 11075 F03.C2 Chronic ki dney disease stage 3 204177115 N18.30 Essential hypertension 44139162 I10 [id number] Goldy Segura [facility] ([facility]) [address] [place] [address] 5 03/17/2024 13:33:07 03/19/2024 10:01:52 Severe dementia 0125841030 89669 F03.C2 [id number] Goldy Segura [facility] ([facility]) [address] [place] [address] 5 03/30/2024 14:00:10 03/31/2024 22:57:01 Edema of left lower leg 543894873 R60.0 [id number] Goldy Segura [facility] ([facility]) [address] [place] [address] 5 04/13/2024 07:50:43 04/21/2024 07:45:03 Severe dementia 9625962635 30830 F03.C2 Essential hypertension 42389220 I10 [id number] Goldy Segura [facility] ([facility]) [address] [place] [address] 5 05/14/2024 08:00:08 05/18/2024 12:52:00 Severe dementia 2911537666 80213 F03.C2 Hypothyroidism 70021874 E03.9 Need for [facility] care assistance 2906360267 [id number] Z74.1 [id number] Goldy Segura [facility] ([facility]) [address] [place] [address] 5 05/25/2024 13:50:52 05/26/2024 07:44:47 Edema of lower extremity 345764103 R60.0 left [id number] Goldy Segura [facility] ([facility]) [address] [place] [address] 5 06/08/2024 07:56:24 06/17/2024 07:42:16 Inappropriate sexual behavior 760366398 F65.9 Severe dementia 78962016 01 60028 F03.C2 Chronic ki dney disease stage 3 403079626 N18.30 Essential hypertension 45592744 I10 [id number] Goldy Segura [facility] ([facility]) [address] [place] [address] 5 08/13/2024 08:38:18 08/18/2024 13:22:42 Severe dementia 3483029241 32908 F03.C2 Inappropri ate sexual behavior 711709864 F65.9 [id number] Goldy Segura [facility] ([facility]) [address] [phone] 09/17/2024 11:39:57 09/30/2024 08:33:44 Severe dementia 7071784923 03787 F03.C2 Essential hypertension 39480669 I10 Chronic ki dney disease stage 3 823987520 N18.30 [id number] Goldy Segura DO [facility] ([facility]) [address] [place], [place] [address] 10/12/2024 12:32:58 10/13/2024 16:49:40 Severe dementia 1092193970 46721 F03.C2 Chronic ki dney disease stage 3 701537026 N18.30 Essential hypertension 05261574 I10 [id number] Goldy Segura DO [facility] ([facility]) [address] [phone] 10/19/2024 14:25:50 10/20/2024 08:57:04 Severe dementia 1727988041 25249 F03.C2 Bronchitis 50790679 40 39843 [id number] Goldy Segura DO [facility] ([facility]) [address] [place], [place] [phone] 11/02/2024 12:05:52 11/03/2024 15:22:14 Inappropriate sexual behavior 910817397 F65.9 Severe dementia 13439441 01 43201 F03.C2 Essential hypertension 95339130 I10 Chronic ki dney disease stage 3 923831617 N18.30 Kidney disease 91702387 N28.9 Health Concerns Section Related Observation LastModified by Organization Detai ls LastModified Time None Recorded Concern Status LastModified by Organization Details LastModified Time None Recorded Advance Directives Directive None Recorded Payers Insurance Date Sequence Insurance Name Policy Number Policy Sainz Covered Member ID Sainz Member ID Guarantor Name 11/13/2024 2 [place] Lanny Zamudio [id number] Lanny Zamudio 11/13/2024 [place] [facility] [place] Lanny Zamudio [id number] Lanny Zamudio 11/02/2024 1 [employer] (MEDICARE REPLACEMENT/ ADVANTAGE - PPO) Lanny Zamudio [id number] Lanny Zamudio Notes Date Note Type Note Provider Name and Address Organization Details Recorded Time 08/13/2024 text/html Hypertension IM/FMReported by PatientHPIFor quality, patient reportshere for check-up. For severity, patient reportsnormal (<120/<80 mmhg). For alleviating factors, patient reportsmedication.R OS as noted in the HPI no complaints per staff or patient. Goldy Segura DO [address] [place] [address], [phone], [facility], LV[facility]haLVarshaC. 08/17/2024 14:01:12 09/17/2024 text/html Hypertension IM/FMReported by PatientIFor quality, patient reportshere for check-up. For severity, patient reportsnormal (<120/<80 mmhg). For alleviating factors, patient reportsmedication.R OS as noted in the HPI no complaints per staff or patient. Goldy Segura [address] [place] [address], [phone], [facility], LVarshaLVarshaC. 09/29/2024 18:06:27 10/12/2024 text/html Hypertension IM/FMReported by PatientIFor quality, patient reportshere for check-up. For severity, patient reportsnormal (<120/<80 mmhg). For alleviating factors, patient reportsmedication.R OS as noted in the HPI no complaints per staff or patient. Goldy Segura [address] [place] [address], [phone], [facility], LVarshaLVarshaC. 10/12/2024 15:20:54 10/19/2024 text/html CoughReported by PatientIFor quality, patient reportsdry. For severity, patient reportsmild. For duration, patient reportsacute (<3 weeks).ROS as noted in the HPI staff reports cough over the weekend. Goldy Segura [address] [place] [address], [phone], [facility], [place]. 10/19/2024 17:05:13 11/02/2024 text/html CoughReported by PatientHPIFor quality, patient reportsdry. For severity, patient reportsmild. For duration, patient reportsacute (<3 weeks).ROS as noted in the HPI no complaints per staff or patient. Goldy Segura, [address], [phone], [facility], Kirti 11/02/2024 15:07:38 OBGyn Episode No OBEpisode recorded.
--- OUTSIDE RECORDS SUMMARY | 2024-12-11 21:51 | XMS_ITS | Continuity of Care Document ---
Author Organization [facility] Address [address] [place] [address] Care Team Providers Care Supervisory Examiner Name Role Phone Dr. Goldy Segura DO Attending Physician [phone] Medications Medication Frequency Instructions Diagnosis Start Date End Date Last Administered benzonatate 100 mg capsule Twice A Day - PRN 1 cap, oral, Twice A Day - PRN, Administer 1 cap po BID PRN cough Sonia Zamora 025 11/02/2024 07:55 AM Calmoseptine (menthol-zinc oxide) 0.44-20.6 % ointment Every Shift small amount, topical, Every Shift, Apply to buttocks Q shift and PRN 024 12/10/2024 08:48 AM Claritin (loratadine) 10 mg tablet Once A Day - PRN 1 tab, oral, Once A Day - PRN, clinical indication: allergies 12/09/2024 07:19 AM donepezil 10 mg tablet At Bedtime 1 tab, sublingual, At Bedtime, under tongue 12/09/2024 09:15 PM Dulcolax (bisacodyl) (bisacodyl) 5 mg tablet,delayed release (DR/EC) Once A Day - PRN 2 tabs/10mg, oral, Once A Day - PRN, Give if no results from MOM 024 08/05/2023 12:43 PM Dulcolax (bisacodyl) (bisacodyl) 10 mg suppository Once A Day - PRN 1 suppository, rectal, Once A Day - PRN, Give rectally if can't take p/o, if no results from MOM Fleet Enema (sodium phosphates) 19-7 gram/118 mL enema Once A Day - PRN 1 application, rectal, Once A Day - PRN, Give fleets if no results from MOM and Dulcolax furosemide 20 mg tablet Once A Day Every Other Day 1 tab, oral, Once A Day Every Other Day I12.9 : Hypertensive chronic kidney disease with stage 1 through stage 4 chronic kidney disease, or unspecified chronic kidney disease 12/09/2024 06:22 AM Dairy Cough Drops (menthol) 7.5 mg lozenge As Needed 1, mucous membrane, As Needed, TAKE EVERY 2 HOURS PRN FOR COUGH/SORE THROAT 12/06/2024 11:36 PM levothyroxine 100 mcg tablet Once A Day 1 tab, oral, Once A Day 12/10/2024 08:48 AM lisinopril 20 mg tablet Once A Day 1, oral, Once A Day 025 12/10/2024 08:48 AM Milk of Magnesia (magnesium hydroxide) 400 mg/5 mL suspension Every 72 Hours - PRN 30 ml, oral, Every 72 Hours - PRN, if no BM in 3 days DO NOT GIVE TO RENAL PATIENTS--GO TO DULCOLAX ORDERS Refresh Tears (carboxymethylce llulose sodium) 0.5 % drops Twice A Day - PRN 1 gtt each eye, ophthalmic (eye), Twice A Day - PRN, Clinical Indication: Dry eyes 10/07/2024 07:05 AM sertraline 100 mg tablet At Bedtime 1 tab, oral, At Bedtime, clinical indication: increased sexual behaviors 12/09/2024 09:15 PM Tylenol (acetaminophen) 325 mg tablet Every 6 Hours - PRN 2 tabs/650mg, oral, Every 6 Hours - PRN, as needed for PRN pain/increased temp May give rectally if necessary 024 10/21/2024 07:39 AM Afluria (3yr up)(PF) (flu vac 36mos up(pf)) 45 mcg (15 mcg x 3)/0.5 m syringe Once - One Time 0.5ml, intramuscular, Once - One Time 025 2024 Afluria 4887-5811 (3yr up)(PF) (flu vac 36mos up(pf)) 45 mcg (15 mcg x 3)/0.5 m syringe Once - One Time 0.5ml, intramuscular, Once - One Time 025 2024 Problems Code Type Problem ICD Code Effective Date Status ICD-10 Unspecified dementia , severe, with psychotic disturbance F03.C2 07/29/2023 Active ICD-10 Hypertensive chronic kidney disease with stage 1 through stage 4 chronic kidney disease, or unspecified chronic kidney disease I12.9 07/29/2023 Active ICD-10 Chronic kidney disease, stage 3 unspecified N18 .30 07/29/2023 Active ICD-10 Hypothyroidism, unspecified E03.9 07/29/19 24 Active ICD-10 Bronchitis, not spec ified as acute or chronic J40 10/19/2024 Active ICD-10 Dry eye syndrome of unspecified lacrimal gland H04.129 07/29/2023 Active ICD-10 Paraphilia, unspecified F65.9 12/10/2023 A ctive ICD-10 Unvaccinated for COVID-19 Z28.310 07/29/2023 Active ICD-10 Do not resuscitate Z66 11/13/2023 Active Current Allergies and Intolerances Category Substance Type Reaction Severity Begin Date Status Drug Allergy No known drug allergies Allergy 04/2023 Active Vital Signs Height: 60.0 in Date / Time Temperature Pulse (per minute) Respirations (per minute) Systolic BP (mmHg) Diastolic BP (mmHg) O2 Saturation (%) Weight BMI 2024 08:48 AM 98.0 F 2024 09:13 PM 98.3 F 2024 01:53 PM 80 18 142 72 98.0 10/15/ 2025 01:52 PM 97.6 F 2024 06:59 PM 97.6 F 2024 08:28 AM 98.3 F 85 20 146 71 98.0 2024 07:55 PM 97.8 F 80 16 141 84 95.0 2024 11:14 AM 160.8 lbs 31.4 2024 08:14 AM 97.3 F 2024 12:53 PM 97.3 F 89 18 164 79 100.0 2024 03:16 PM 97.5 F 74 17 129 70 98.0 2024 03:53 PM 69 17 140 81 94.0 2024 02:43 PM 84 16 137 86 92.0 2024 03:45 PM 161.6 lbs 31.5 6 2024 01:09 PM 79 17 117 86 97.0 2024 02:43 PM 70 16 149 83 94.0 2024 09:54 AM 70 20 171 85 95.0 2024 10:35 AM 159.8 lbs 31.2 1 2024 04:02 PM 159.0 lbs 31.0 5 2024 03:18 PM 159.6 lbs 31.1 7 2024 09:39 AM 161.8 lbs 31.6 Advance Directives Directive Note Do Not Resuscitate (DNR) Insurance Providers Payer Policy type Group Name Group number Policy ID Address Ph one Medicare Part A Medicare Part A [id number] Phone: Fax: Managed Care PDPM - [employer] Like Medicare Part A [id number] 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 Status Dose Series Complete COVID-19 Vaccine 11/21/2023 Refused COVID-19 Vaccine 07/29/2023 Refused Influenza Vaccine seqirus 12/09/2024 Completed Influenza Vaccine 12/08/2024 Refused Influenza Vaccine 12/06/2023 Refused Pneumococcal Vaccine [employer] 07/30/2023 Comple driss 1 RSV Vaccine 10/13/2024 Refused RSV Vaccine 12/06/2023 Refused Procedures Not available for this record Results Not available for this record Goals Goal Date Will have a BM at least ever y 3 days for 120 days since update/last review AND/OR will not experience any complications r/t to colostomy for 120 days from update/ last review AND/OR Will not experience any GI complications for 120 days since update/last review AND/OR Will remain clean, dry between incontinent episodes thru 120days from update/last review 01/27/2025 ADL approaches will meet the resident?s needs to enhance ability, maintain abilities, or provide quality. 01/27/2025 Lanny will maintain or improve nutritio nal status through next review. 01/27/2025 Advanced directives will be honored as outlined by patient/family on daily basis thru 120days from update/last review 01/27/2025 Will adjust to change in rel ationships and accept support from staff for 120days from update/last review AND/OR Will be at ease interacting with others, expressing preferences daily for 120days from update/last review 01/27/2025 Resident will have positive experiences in daily routine without overly demanding tasks and without becoming overly stressed. 01/27/2025 Resident will hear, process, and underst and communication. 01/27/2025 Resident will not develop skin breakdown related to incontinence. 01/27/2025 Resident will remain free from falls. Resident will not exhibit si gns of drug related sedation, hypotension, or anticholinergic symptoms. 01/27/2025 Resident will have positive experiences in daily routine without overly demanding tasks and without becoming overly stressed. 01/27/2025 Will have positive responses to activities of my choice weekly through next assessment such as..... 01/27/2025 Encounters Admission Date Discharge Date Description MRN Visit Count 07/29/2023 14:19 LTPAC Admission [id number]
--- OUTSIDE RECORDS SUMMARY | 2024-12-11 21:51 | XMS_ITS | Clinical Summary ---
Author Organization [facility] Facility Address [address] [place] [address] Care Team Providers Care Software Sales Manager Name Role Phone David Eng Primary Care Provider [phone] Allergies No known active allergies Medications traMADol (ULTRAM) 50 MG tablet TAKE 1 TAB BY MOUTH THREE TIMES DAILY OCCASIONALLY NEEDED FOR PAIN 0 Active sertraline (ZOLOFT) 25 MG tablet TAKE 1 TABLET BY MOUTH ONCE DAILY FOR MOOD 0 Active NIFEdipine CC (ADALAT CC) 60 MG 24 hr tablet TAKE 1 TABLET BY MOUTH ONCE DAILY FOR BLOOD PRESSURE AND HEART 0 Active hydrOXYzine (ATARAX) 25 MG tablet 25 mg every night 0 Active furosemide (LASIX) 20 MG tablet Take 20 mg by mouth 1 (one) time each day if needed 0 Active donepezil (ARICEPT) 10 MG tablet TAKE 1 TABLET BY MOUTH ONCE DAILY FOR MEMORY 0 Active diphenhydrAMINE -acetaminophen (TYLENOL PM EXTRA STRENGTH) 25-500 MG per tablet Take 1 tablet by mouth at bed time Active carvedilol (COREG) 6.25 MG tablet Take 6.25 mg by mouth twice a day for blood pressure. 0 Active atorvastatin (LIPITOR) 40 MG tablet Take 40 mg by mouth 1 (one) time each day in the evening Active allopurinol (ZYLOPRIM) 100 MG tablet Take 100 mg by mouth 1 (one) time each day 0 Active aspirin 81 MG tablet Take 81 mg by mouth daily Active levothyroxine (SYNTHROID, LEVOTHROID) 125 MCG tablet Take 125 mcg by mouth 1 (one) time each day Active Active Problems Problem Noted Date Diagnosed Date Chronic kidney disease, stage 4 (severe) 020 Essential (primary) hypertension 04/21/2019 Immunizations Immunization Administration Dates Next Due Pneumococcal Conjugate 13-Valent 09/08/2015 Pneumococcal Polysaccharide 10/17/2011 Family History Medical History Relation Comments Gout Child Hypertension Child Heart disease Father Hypertension Father Cancer Mother Dementia Mother Diabetes Mother Heart disease Mother Hypertension Mother Cancer Sibling Dementia Sibling Diabetes Sibling Gout Sibling Hypertension Sibling Relation Status Comments Child Father Mother Sibling Social History Tobacco Use Types Packs/Day Years Used Date Smoking Tobacco: Former Smokeless Tobacco: Never Alcohol Use Standard Drinks/Week Comments Never 0 (1 standard drink = 0.6 oz pur e alcohol) AUDIT-C Answer Date Recorded Q1: How often do you have a drink containing alc ohol? Never 04/21/2019 Average Number of Drinks Not on file 020 Frequency of Binge Drinking Not on file 03/29 Comments Unknown Sex and Gender Information Value Date Recorded Sex Assigned at Not on file Legal Sex Female 12:39 PM EST Gender Identity Not on file Sexual Orientation Not on file Last Filed Vital Signs Vital Sign Reading Time Taken Comments Blood Pressure 130/64 04/21/2019 11:37 AM REEL ASSEMBLER Pulse 60 04/21/2019 11:37 AM REEL ASSEMBLER Temperature - - Respiratory Rate - - Oxygen Saturation - - Inhaled Oxygen Concentration - - Weight 78.2 kg (172 lb 4.8 oz) 04/21/2019 11:37 AM REEL ASSEMBLER Height 152.4 cm (5') 04/21/2019 11:37 AM REEL ASSEMBLER Body Mass Index 33.65 04/21/2019 11:37 AM REEL ASSEMBLER Plan of Treatment Health Maintenance Due Date Last Done Comments Influenza Vaccine (#1) 2024 Pneumococcal Vaccine: 50+ Years Completed 09/08/2015, 10/17/2011 Pneumococcal Vaccine: Peds (0 to 5 Years) and At-Risk Patients (6 to 49 Years) Discontinued 09/08/2015, 10/17/2011 Hepatitis B Vaccine Aged Out No longe r eligible based on patient's age to complete this topic Insurance [facility] Medicare Medicaid [place] ([id number]) Care Teams Software Sales Manager Relationship Specialty Start Date End Date David Eng DO PCP - General Family Medicine 04/16/19
--- NOTE | 2024-12-11 21:55 | USR_ITS ---
PROCEDURE INFORMATION: Exam: US Duplex Right Lower Extremity Veins, Limited Exam date and time: 12/11/2024 11:01 PM Age: 84 years old Clinical indication: Varicose veins of lower extremities; Additional info: Leg swelling TECHNIQUE: Imaging protocol: Real-time duplex ultrasound of the right extremity with 2-D fischer scale, color Doppler flow and spectral waveform analysis including responses to compression and other maneuvers (when performed) with image documentation. Limited exam was focused on the right lower extremity veins. COMPARISON: No relevant prior studies available. FINDINGS: Right deep veins: Unremarkable. The common femoral, femoral, proximal profunda femoral and popliteal veins are patent without thrombus. Normal Doppler waveforms. Normal compressibility and/or augmentation response. Superficial veins: Greater saphenous vein at the saphenofemoral junction is patent without thrombus. Soft tissues: A 1.6 x 0.5 x 4.2 cm circumscribed anechoic cystic lesion is seen in the popliteal fossa. Small volume subcutaneous fluid is seen anterior to this collection. US/[place] [id number] IMPRESSION: 1. Patent vasculature without evidence of DVT. 2. A 4.2 cm popliteal fossa Penaloza's cyst with associated edema of the posterior knee. Findings could represent a component of ruptured Penaloza's cyst or edema of unknown source. Correlate for systemic source or cellulitis.
[2024-12-11 22:00] VITALS: BP 166/85; PULSE 98; RESP 18; TEMP 36.8; O2SAT 94; BMI 28.5
[2024-12-11 22:03] VITALS: BP 155/74; PULSE 90; O2SAT 98
--- NOTE | 2024-12-11 22:06 | ED_ITS ---
HPI - Extremity Problem 2 General: Chief complaint: Extremity Problem,Nontraumatic Stated complaint: LEG SWELLING Time Seen by Provider: 12/11/24 21:49 Source: patient and EMS Mode of arrival: EMS Limitations: no limitations History of Present Illness: 84-year-old female is here from [facility] complaining of some right leg swelling and slight erythema. Swellings been going on for 2 days she complains of some pain she rates it at 10 denies any injuries denies any fevers denies any worse improved factors. Related Data Allergies Allergy/AdvReac Type Severity Reaction Status Date / Time No Known Allergies Allergy Verified 03/27/24 16:31 Review of Systems 2 Musc: Reports: extremity pain and extremity swelling Physical Exam 2 Const: COMMON NORMALS: no acute distress, patient oriented x3 and healthy appearing HENMT: COMMON NORMALS: normocephalic and atraumatic HEAD & SCALP: n ormocephalic and atraumatic Eye: COMMON NORMALS: conjunctivae normal CONJUNCTIVA: Yes conjunctivae normal Neck/C-Spine: COMMON NORMALS: full ROM and supple Chest: COMMONS NORMALS: normal inspection of the chest Resp: COMMON NORMALS: normal respiratory effort Cardio: COMMON NORMALS: regular rate, regular rhythm and No murmurs present (Cardio) RATE: regular rate RHYTHM: regular rhythm Extremity: NARRATIVE EXTREMITY EXAM: Slight swelling to right calf with tenderness mild erythema distal pulses sensation intact Neuro: COMMON NORMALS: patient oriented x3, moves all extremities and no focal motor deficits Psych: COMMON NORMALS: mental status grossly normal, Normal thought process present and cooperative THOUGHT PROCESS: Normal thought process present Skin: COMMON NORMALS: no rashes or lesions noted and no wounds GENERAL SKIN EXAM: no rashes or lesions noted Course 2 Vital Signs: Vital signs: Vital Signs Temperature 98.3 F 12/11/24 22:00 Pulse Rate 90 12/11/24 22:03 Respiratory Rate 18 12/11/24 22:00 Blood Pressure 155/74 12/11/24 22:03 Pulse Oximetry 98 12/11/24 22:03 MDM - Extremity (Nontraumatic) Medical Decision Making Patient presents here right lower leg swelling differential include DVT, cellulitis. Patient has no signs of cellulitis here white count was normal ultrasound showed no signs of DVT does have a likely Penaloza's cyst that could be causing some of the swelling. Distal pulses intact no signs of arterial occlusion did review her labs which showed no acute abnormalities she is stable for discharge back to the [facility] return if worsening. Lab Data I reviewed the patient's lab results. 12/11/24 21:58 Laboratory Results WBC 7.94 10^3/uL (3.29-11.43) 12/11/24 21:58 RBC 4.06 10^6/uL (3.85-5.65) 12/11/24 21:58 Hgb 10.60 g/dL (11.27-16.99) L 12/11/24 21:58 Hct 34.3 % (36-47) L 12/11/24 21:58 MCV 84.5 fl (85-98) L 12/11/24 21:58 MCH 26.1 pg (27-33) L 12/11/24 21:58 MCHC 30.9 g/dL (30-55) 12/11/24 21:58 RDW 15.5 % (12.1-15.1) H 12/11/24 21:58 Plt Count 243 10^3/cmm (157-399) 12/11/24 21:58 MPV 10.2 fL (7.4-10.4) 12/11/24 21:58 Neut % (Auto) 58.3 % 12/11/24 21:58 Lymph % (Auto) 24.3 % 12/11/24 21:58 [place] % (Auto) 10.3 % 12/11/24 21:58 Eos % (Auto) 5.2 % 12/11/24 21:58 Baso % (Auto) 1.1 % 12/11/24 21:58 Neut # (Auto) 4.63 10^3/uL (1.8-7.7) 12/11/24 21:58 Lymph # (Auto) 1.9 10^3/uL (0.8-4.8) 12/11/24 21:58 [place] # (Auto) 0.8 10^3/uL (0.2-0.9) 12/11/24 21:58 Eos # (Auto) 0.4 10^3/uL (0.0-0.8) 12/11/24 21:58 Baso # (Auto) 0.1 10^3/uL (0.0-0.1) 12/11/24 21:58 Nucleated RBC % (auto) 0 % 12/11/24 21:58 Nucleated RBCs # 0.0 /100WBC 12/11/24 21:58 All radiology interpretation(s) finalized by discharge Discharge Plan Discharge Patient Disposition: Home Clinical Impression: Right leg swelling Condition: Stable Discharge Orders: Discharge ED (Routine); Ordered 12/11/24 Ordered By: Malik Escudero Referrals: David Eng DO [Primary Care Provider, [facility]] - 4-7 days Discharge Diet: Advance as tolerated Discharge Activity: Resume usual activity Patient Instructions: Leg Pain (ED) Print Language: Khmer Coding Level of Care Code ED Assistant Front Office Manager for Jacobo Ochoa
[2024-12-11 22:33] VITALS: BP 155/86; PULSE 90; O2SAT 94
[2024-12-11 22:47] LABS: Hematocrit 34.3 % (36-47); Hemoglobin 10.60 g/dL (11.27-16.99); Mean Corpuscular HGB Conc 30.9 g/dL (30-55); Mean Corpuscular Hemoglobin 26.1 pg (27-33); Mean Corpuscular Volume 84.5 fl (85-98); Nucleated Red Blood Cells % 0 %; Platelet Count 243 10^3/cmm (157-399); Red Blood Count 4.06 10^6/uL (3.85-5.65); White Blood Count 7.94 10^3/uL (3.29-11.43)
[2024-12-11 23:03] VITALS: BP 159/80; PULSE 93; O2SAT 95
[2024-12-11 23:30] VITALS: BP 152/89; PULSE 94; O2SAT 95
[2024-12-12 00:36] VITALS: BP 157/83; PULSE 90; O2SAT 94
== END 2024-12-12 00:36 | disposition home or self-care (01) ==
PROVIDERS: Emergency Provider Emergency Medicine; PCP Internal Medicine
DX: R60.0 Localized edema (principal)
CPT/HCPCS: 85025; 93971; 99284

== ENCOUNTER 2025-02-14 21:27 | Emergency (ER) | payer MEDICARE, MEDICAID, SELFPAY ==
--- OUTSIDE RECORDS SUMMARY | 2025-02-14 21:32 | XMS_ITS | Encounter Summary ---
Author Organization [facility] [employer] Address [address] [place] [address] Phone Care Team Providers Care Shredder/Granulator Operator Name Role Phone David Eng DO Primary Care Provider [phone] Encounter Details Date Type Department Care Team (Late st Contact Info) Description 04/10/2019 Orders Only [facility] [address] [place] [address] Chronic kidney disease, stage 4 [...] (HCC) documented in this encounter Care Teams Shredder/Granulator Operator Relationship Specialty Start Date End Date David Eng DO PCP - General Family Medicine 04/16/19 documented as of this encounter
--- OUTSIDE RECORDS SUMMARY | 2025-02-14 21:32 | XMS_ITS | Continuity of Care Document ---
Author Organization [employer] ([facility]) Address [address] [place] [address] Insurance Providers Payer Plan Claims Address Claims Phone Policy Number Group Number Relation Employer Guarantor Name Guarantor Guarantor Address Guarantor Phone [employer] [address] [address], [place] [address] tel:[phone] [id number] Self Lanny Zamudio [address] [place] [address] [employer] [id number] HMO [address] [address], [place] [address] tel:[phone] [id number] Self Lanny Zamudio [address] [place] [address] [employer]V [address] [address], [place] [address] tel:[phone] [id number] Self Lanny Zamudio [address] [place] [address] Problems Condition ICD9 code ICD10 code SNOMED code Start Date End Date S tatus Chronic kidney disease, stage 3 unspecified N18.30 07/29/2023 Activ e Hypothyroidism, unspecified E03.9 07/29/2023 Active Bronchitis, not specified as acute or chronic J40 10/19/2024 Activ e Synovial cyst of popliteal space [Penaloza], right knee M71.21 01/25/2025 Active Results Test Result Date/Time Value / Unit [...] Time intramusc ular 1.0 10/13 Active Afluria 8766-2198 (3yr up)(PF) (flu vac [id number] 36mos up(pf)) 45 mcg (15 mcg x 3)/0.5 m syringe (Afluria (3yr up)(PF) (flu vac [id number] 36mos up(pf))) 0.5ml, intramuscular , Once - One Time intramusc ular 1.0 12/08 Active Afluria 7724-7725 (3yr up)(PF) (flu vac [id number] 36mos up(pf)) 45 mcg (15 mcg x 3)/0.5 m syringe (Afluria (3yr up)(PF) (flu vac rz3364-04 36mos up(pf))) 0.5ml, intramuscular , Once - One Time intramusc ular 1.0 12/08 Active sertraline 100 mg tablet (sertraline) 1 and 1/2 tab, oral, At Bedtime, clinical indication: increased sexual behaviorsG miguel 1 and 1/2 tabs to equal 150mg oral 1.0 2024 Active tramadol 50 mg tablet (tramadol) 1 tab, oral, Every 6 Hours - PRN, Administer 1 tab po Q 6hrs PRN pain oral 1.0 6.0 h 01/25 Active Cough Drops (menthol) 7.6 mg lozenge (Cough Drops (menthol)) 1 lozenge, mucous membrane, Every 2 Hours - PRN, FOR COUGH/SORE THROAT 1.0 2.0 h 2024 Active tramadol 50 mg tablet (tramadol) 1 tab, oral, Three Times A Day, 1 po TID pain oral 1.0 8.0 h 02/04 Active hydrocodone-ollie taminophen 5-325 mg tablet (hydrocodone-ac etaminophen) 1, oral, Three Times A Day, Dx pain oral 1.0 8.0 h 2024 Active Vital Signs Date Vital Result Comment 03/28/2024 05:12 PM Body Weight (29824-5) 155.8 [lb_av ] Body Mass Index (26842-0) 30.42 kg/m2 04/01/2024 01:27 PM Temperature (8310-5) 97.8 [degF] Oxygen Saturation (53688-3) 97 % Respiratory Rate (9279-1) 17 /min Heart Rate (8867-4) 82 /min Blood Pressure Systolic (8480-6) 149 mm[Hg] Blood Pressure Diastolic (8462-4) 82 mm[Hg] 04/08/2024 01:54 PM Temperature (8310-5) 98.3 [degF] Oxygen Saturation (42063-6) 97 % Respiratory Rate (9279-1) 17 /min Heart Rate (8867-4) 65 /min Blood Pressure Systolic (8480-6) 137 mm[Hg] Blood Pressure Diastolic (8462-4) 63 mm[Hg] 04/15/2024 05:00 PM Temperature (8310-5) 98 [degF] Oxygen Saturation (06467-9) 95 % Respiratory Rate (9279-1) 18 /min Heart Rate (8867-4) 82 /min Blood Pressure Systolic (8480-6) 142 mm[Hg] Blood Pressure Diastolic (8462-4) 80 mm[Hg] 04/22/2024 09:03 AM Temperature (8310-5) 98.8 [degF] Oxygen Saturation (39392-2) 100 % Respiratory Rate (9279-1) 19 /min Heart Rate (8867-4) 83 /min Blood Pressure Systolic (8480-6) 153 mm[Hg] Blood Pressure Diastolic (8462-4) 78 mm[Hg] 04/25/2024 09:58 AM Body Weight (15078-0) 154 [lb_av] Body Mass Index (72775-1) 30.07 kg/m2 04/29/2024 09:48 AM Temperature (8310-5) 96.4 [degF] Oxygen Saturation (57832-2) 99 % Respiratory Rate (9279-1) 15 /min Heart Rate (8867-4) 56 /min Blood Pressure Systolic (8480-6) 168 mm[Hg] Blood Pressure Diastolic (8462-4) 90 mm[Hg] 05/06/2024 09:17 AM Temperature (8310-5) 97.9 [degF] Oxygen Saturation (74114-7) 96 % Respiratory Rate (9279-1) 17 /min Heart Rate (8867-4) 71 /min Blood Pressure Systolic (8480-6) 145 mm[Hg] Blood Pressure Diastolic (8462-4) 63 mm[Hg] 05/13/2024 02:43 PM Temperature (8310-5) 98.2 [degF] Oxygen Saturation (23648-8) 95 % Respiratory Rate (9279-1) 16 /min Heart Rate (8867-4) 66 /min Blood Pressure Systolic (8480-6) 105 mm[Hg] Blood Pressure Diastolic (8462-4) 56 mm[Hg] 05/20/2024 11:18 AM Temperature (8310-5) 97.8 [degF] Oxygen Saturation (26180-7) 98 % Respiratory Rate (9279-1) 17 /min Heart Rate (8867-4) 65 /min Blood Pressure Systolic (8480-6) 171 mm[Hg] Blood Pressure Diastolic (8462-4) 77 mm[Hg] 05/26/2024 05:37 PM Body Weight (94059-5) 157.4 [lb_av ] Body Mass Index (88107-2) 30.74 kg/m2 05/27/2024 05:13 PM Temperature (8310-5) 96.2 [degF] Oxygen Saturation (29639-9) 95 % Respiratory Rate (9279-1) 15 /min Heart Rate (8867-4) 74 /min Blood Pressure Systolic (8480-6) 130 mm[Hg] Blood Pressure Diastolic (8462-4) 76 mm[Hg] 06/03/2024 11:28 AM Temperature (8310-5) 96.1 [degF] Oxygen Saturation (31517-5) 98 % Respiratory Rate (9279-1) 17 /min Heart Rate (8867-4) 65 /min Blood Pressure Systolic (8480-6) 165 mm[Hg] Blood Pressure Diastolic (8462-4) 96 mm[Hg] 06/10/2024 04:35 PM Temperature (8310-5) 97.9 [degF] Oxygen Saturation (35155-4) 96 % Respiratory Rate (9279-1) 17 /min Heart Rate (8867-4) 86 /min Blood Pressure Systolic (8480-6) 151 mm[Hg] Blood Pressure Diastolic (8462-4) 79 mm[Hg] 06/17/2024 09:24 AM Temperature (8310-5) 97.8 [degF] Oxygen Saturation (95916-5) 95 % Respiratory Rate (9279-1) 14 /min Heart Rate (8867-4) 67 /min Blood Pressure Systolic (8480-6) 123 mm[Hg] Blood Pressure Diastolic (8462-4) 84 mm[Hg] 06/24/2024 02:56 PM Temperature (8310-5) 97.9 [degF] Oxygen Saturation (89015-4) 96 % Respiratory Rate (9279-1) 17 /min Heart Rate (8867-4) 67 /min Blood Pressure Systolic (8480-6) 128 mm[Hg] Blood Pressure Diastolic (8462-4) 77 mm[Hg] 06/25/2024 06:01 PM Body Weight (75499-8) 156.6 [lb_av ] Body Mass Index (58853-8) 30.58 kg/m2 09/30/2024 10:35 AM Body Weight (98512-6) 159.8 [lb_av ] Body Mass Index (05689-5) 31.21 kg/m2 09/28/2024 03:18 PM Body Weight (73467-6) 159.6 [lb_av ] Body Mass Index (66291-3) 31.17 kg/m2 10/26/2024 03:45 PM Body Weight (14958-2) 161.6 [lb_av ] Body Mass Index (69739-6) 31.56 kg/m2 10/07/2024 09:54 AM Temperature (8310-5) 97.3 [degF] Oxygen Saturation (36824-7) 95 % Respiratory Rate (9279-1) 20 /min Heart Rate (8867-4) 70 /min Blood Pressure Systolic (8480-6) 171 mm[Hg] Blood Pressure Diastolic (8462-4) 85 mm[Hg] 09/30/2024 05:44 PM Temperature (8310-5) 98 [degF] Oxygen Saturation (55384-1) 94 % Respiratory Rate (9279-1) 19 /min Heart Rate (8867-4) 78 /min Blood Pressure Systolic (8480-6) 156 mm[Hg] Blood Pressure Diastolic (8462-4) 82 mm[Hg] 10/28/2024 02:43 PM Temperature (8310-5) 97.7 [degF] Oxygen Saturation (93934-5) 92 % Respiratory Rate (9279-1) 16 /min Heart Rate (8867-4) 84 /min Blood Pressure Systolic (8480-6) 137 mm[Hg] Blood Pressure Diastolic (8462-4) 86 mm[Hg] 10/14/2024 02:43 PM Temperature (8310-5) 97.7 [degF] Oxygen Saturation (99912-6) 94 % Respiratory Rate (9279-1) 16 /min Heart Rate (8867-4) 70 /min Blood Pressure Systolic (8480-6) 149 mm[Hg] Blood Pressure Diastolic (8462-4) 83 mm[Hg] 10/21/2024 01:09 PM Temperature (8310-5) 98.4 [degF] Oxygen Saturation (45073-5) 97 % Respiratory Rate (9279-1) 17 /min Heart Rate (8867-4) 79 /min Blood Pressure Systolic (8480-6) 117 mm[Hg] Blood Pressure Diastolic (8462-4) 86 mm[Hg] 09/29/2024 04:02 PM Body Weight (25330-8) 159 [lb_av] Body Mass Index (61928-5) 31.05 kg/m2 11/04/2024 03:53 PM Temperature (8310-5) 97.3 [degF] Oxygen Saturation (83441-4) 94 % Respiratory Rate (9279-1) 17 /min Heart Rate (8867-4) 69 /min Blood Pressure Systolic (8480-6) 140 mm[Hg] Blood Pressure Diastolic (8462-4) 81 mm[Hg] 09/09/2024 01:50 PM Temperature (8310-5) 98 [degF] Oxygen Saturation (56062-6) 100 % Respiratory Rate (9279-1) 16 /min Heart Rate (8867-4) 68 /min Blood Pressure Systolic (8480-6) 167 mm[Hg] Blood Pressure Diastolic (8462-4) 73 mm[Hg] 09/16/2024 10:52 AM Temperature (8310-5) 97.2 [degF] Oxygen Saturation (31843-5) 94 % Respiratory Rate (9279-1) 17 /min Heart Rate (8867-4) 69 /min Blood Pressure Systolic (8480-6) 165 mm[Hg] Blood Pressure Diastolic (8462-4) 73 mm[Hg] 08/25/2024 01:48 PM Body Weight (39698-0) 156 [lb_av] Body Mass Index (82318-6) 30.46 kg/m2 2024 02:09 PM Temperature (8310-5) 99.8 [degF] Oxygen Saturation (60588-2) 98 % Respiratory Rate (9279-1) 20 /min Heart Rate (8867-4) 66 /min Blood Pressure Systolic (8480-6) 151 mm[Hg] Blood Pressure Diastolic (8462-4) 88 mm[Hg] 09/25/2024 09:39 AM Body Weight (05173-3) 161.8 [lb_av ] Body Mass Index (67506-7) 31.6 kg/m2 09/02/2024 03:18 PM Temperature (8310-5) 98 [degF] Oxygen Saturation (58820-4) 95 % Respiratory Rate (9279-1) 17 /min Heart Rate (8867-4) 82 /min Blood Pressure Systolic (8480-6) 139 mm[Hg] Blood Pressure Diastolic (8462-4) 75 mm[Hg] 11/11/2024 03:16 PM Temperature (8310-5) 97.5 [degF] Oxygen Saturation (12948-7) 98 % Respiratory Rate (9279-1) 17 /min Heart Rate (8867-4) 74 /min Blood Pressure Systolic (8480-6) 129 mm[Hg] Blood Pressure Diastolic (8462-4) 70 mm[Hg] 11/18/2024 12:53 PM Temperature (8310-5) 97.3 [degF] Oxygen Saturation (96856-6) 100 % Respiratory Rate (9279-1) 18 /min Heart Rate (8867-4) 89 /min Blood Pressure Systolic (8480-6) 164 mm[Hg] Blood Pressure Diastolic (8462-4) 79 mm[Hg] 11/24/2024 08:14 AM Temperature (8310-5) 97.3 [degF] 11/25/2024 11:14 AM Body Weight (52975-8) 160.8 [lb_av ] Body Mass Index (07078-8) 31.4 kg/m2 11/25/2024 07:55 PM Temperature (8310-5) 97.8 [degF] Oxygen Saturation (48261-7) 95 % Respiratory Rate (9279-1) 16 /min Heart Rate (8867-4) 80 /min Blood Pressure Systolic (8480-6) 141 mm[Hg] Blood Pressure Diastolic (8462-4) 84 mm[Hg] 12/02/2024 08:28 AM Temperature (8310-5) 98.3 [degF] Oxygen Saturation (45002-5) 98 % Respiratory Rate (9279-1) 20 /min Heart Rate (8867-4) 85 /min Blood Pressure Systolic (8480-6) 146 mm[Hg] Blood Pressure Diastolic (8462-4) 71 mm[Hg] 12/08/2024 06:59 PM Temperature (8310-5) 97.6 [degF] 12/09/2024 01:52 PM Temperature (8310-5) 97.6 [degF] 12/09/2024 01:53 PM Oxygen Saturation (94409-7) 98 % Respiratory Rate (9279-1) 18 /min Heart Rate (8867-4) 80 /min Blood Pressure Systolic (8480-6) 142 mm[Hg] Blood Pressure Diastolic (8462-4) 72 mm[Hg] 12/09/2024 09:13 PM Temperature (8310-5) 98.3 [degF] 12/10/2024 08:48 AM Temperature (8310-5) 98 [degF] 12/10/2024 07:10 PM Temperature (8310-5) 97.5 [degF] 12/16/2024 08:34 AM Temperature (8310-5) 98.3 [degF] Oxygen Saturation (79887-3) 98 % Respiratory Rate (9279-1) 16 /min Heart Rate (8867-4) 76 /min Blood Pressure Systolic (8480-6) 163 mm[Hg] Blood Pressure Diastolic (8462-4) 73 mm[Hg] 12/23/2024 02:56 PM Temperature (8310-5) 97.7 [degF] Oxygen Saturation (60517-0) 98 % Respiratory Rate (9279-1) 18 /min Heart Rate (8867-4) 87 /min Blood Pressure Systolic (8480-6) 151 mm[Hg] Blood Pressure Diastolic (8462-4) 81 mm[Hg] 12/26/2024 10:53 AM Body Weight (09337-9) 162.6 [lb_av ] Body Mass Index (86559-7) 31.75 kg/m2 12/30/2024 09:01 AM Temperature (8310-5) 97.4 [degF] Oxygen Saturation (26703-7) 96 % Respiratory Rate (9279-1) 17 /min Heart Rate (8867-4) 84 /min Blood Pressure Systolic (8480-6) 111 mm[Hg] Blood Pressure Diastolic (8462-4) 66 mm[Hg] 01/06/2025 05:03 PM Temperature (8310-5) 97 [degF] Oxygen Saturation (00505-7) 94 % Respiratory Rate (9279-1) 18 /min Heart Rate (8867-4) 82 /min Blood Pressure Systolic (8480-6) 140 mm[Hg] Blood Pressure Diastolic (8462-4) 88 mm[Hg] 01/13/2025 09:27 AM Temperature (8310-5) 97.3 [degF] Oxygen Saturation (20226-2) 95 % Respiratory Rate (9279-1) 16 /min Heart Rate (8867-4) 91 /min Blood Pressure Systolic (8480-6) 139 mm[Hg] Blood Pressure Diastolic (8462-4) 85 mm[Hg] 01/20/2025 12:15 PM Temperature (8310-5) 97.7 [degF] Oxygen Saturation (45892-4) 94 % Respiratory Rate (9279-1) 22 /min Heart Rate (8867-4) 88 /min Blood Pressure Systolic (8480-6) 158 mm[Hg] Blood Pressure Diastolic (8462-4) 77 mm[Hg] 01/25/2025 05:22 PM Body Weight (23449-8) 163.4 [lb_av ] Body Mass Index (39995-6) 31.91 kg/m2 01/27/2025 09:42 AM Temperature (8310-5) 98.1 [degF] Oxygen Saturation (52074-1) 93 % Respiratory Rate (9279-1) 17 /min Heart Rate (8867-4) 82 /min Blood Pressure Systolic (8480-6) 155 mm[Hg] Blood Pressure Diastolic (8462-4) 99 mm[Hg] 02/03/2025 05:33 PM Temperature (8310-5) 97.3 [degF] Oxygen Saturation (25096-7) 94 % Respiratory Rate (9279-1) 17 /min Heart Rate (8867-4) 82 /min Blood Pressure Systolic (8480-6) 148 mm[Hg] Blood Pressure Diastolic (8462-4) 88 mm[Hg] 02/10/2025 09:46 AM Temperature (8310-5) 97.8 [degF] Oxygen Saturation (09319-9) 93 % Respiratory Rate (9279-1) 16 /min Heart Rate (8867-4) 76 /min Blood Pressure Systolic (8480-6) 165 mm[Hg] Blood Pressure Diastolic (8462-4) 93 mm[Hg] Social History No smoking Hx information available Encounters Type CPT Code Date Location Provider Indication s encounter report 07/29/2023 02:1 9 PM - 03/27/2024 04:16 PM Goldy Segura DO
--- OUTSIDE RECORDS SUMMARY | 2025-02-14 21:32 | XMS_ITS | Clinical Summary ---
Author Organization [facility] Facility Address [address] [place] [address] Care Team Providers Care Visual Merchandiser Name Role Phone David Eng Primary Care Provider [phone] Allergies No known active allergies Medications traMADol [...] Comments Blood Pressure 130/64 04/21/2019 11:37 AM CUSTOM TAILOR Pulse 60 04/21/2019 11:37 AM CUSTOM TAILOR Temperature - - Respiratory Rate - - Oxygen Saturation - - Inhaled Oxygen Concentration - - Weight 78.2 kg (172 lb 4.8 oz) 04/21/2019 11:37 AM CUSTOM TAILOR Height 152.4 cm (5') 04/21/2019 11:37 AM CUSTOM TAILOR Body Mass Index 33.65 04/21/2019 11:37 AM CUSTOM TAILOR Plan of Treatment Health Maintenance Due Date Last Done Comments Influenza Vaccine (#1) 2024 Pneumococcal Vaccine: 50+ Years Completed 09/08/2015, 10/17/2011 Pneumococcal Vaccine: Peds (0 to 5 Years) and At-Risk Patients (6 to 49 Years) Discontinued 09/08/2015, 10/17/2011 Hepatitis B Vaccine Aged Out No longe r eligible based on patient's age to complete this topic Insurance [facility] Medicare Medicaid [place] (SKIN0) Care Teams Visual Merchandiser Relationship Specialty Start Date End Date David Eng DO PCP - General Family Medicine 04/16/19
[2025-02-14 21:34] VITALS: BP 158/99; PULSE 90; RESP 20; TEMP 36.6; O2SAT 94; BMI 36.3
--- NOTE | 2025-02-14 21:39 | ED_ITS ---
HPI - Skin/Abscess/Foreign Bdy General: Chief complaint: Airway/Esophagus Foreign Body Stated complaint: CHOKED ON MEDS Time Seen by Provider: 02/14/25 21:33 History of Present Illness: Patient is an 84-year-old female with past medical history of COPD, CKD, dementia, hypertension who presents to the ED with a potential foreign body. Patient lives in a facility, was taking her nighttime meds when bedside nurse was concerned after she had a small choking episode and has had she aspirated her pills, she reported no breath sounds and so called EMS. She was saturating in the mid 90s for them, had no signs of respiratory distress breath N for further evaluation. Patient is alert and oriented x 1 at baseline and not able to contribute to history. Related Data Previous Rx's ?Medication ?Instructions ?Recorded cephalexin 500 mg capsule 500 mg PO Q6H #20 caps 02/15 Allergies Allergy/AdvReac Type Severity Reaction Status Date / Time No Known Allergies Allergy Verified 03/27/24 16:31 Review of Systems General: Reports: ROS unobtainable due to mental status Physical Exam Narrative: EXAM NARRATIVE: Patient mildly agitated on arrival but well-appearing, no signs of respiratory distress, afebrile. Patient with slightly decreased breath sounds throughout but nothing adventitious, no stridor, breathing comfortably on room air, saturating in mid 90s, no accessory muscle usage, able to speak in full sentences without getting short of breath. No pooling of secretions. Abdomen soft, nontender, nondistended. Excoriations to skin to face and upper extremities. Abdomen soft, nontender nondistended. Normal sinus rhythm with mild nonpitting edema,. GCS 14, alert and oriented x 1, spontaneous and symmetrically moving all 4 extremities. Course Vital Signs: Vital signs: Vital Signs Temperature 98 F 02/14/25 21:34 Pulse Rate 86 02/15/25 01:23 Respiratory Rate 22 H 02/15/25 00:00 Blood Pressure 145/88 02/15/25 01:23 Pulse Oximetry 90 02/15/25 01:23 Oxygen Delivery Me thod Room Air 02/15/25 00:04 MDM - Skin/Abscess/Foreign Bdy Medicial Decision Making -ddx: Aspiration, airway foreign body, pill induced esophagitis, hypoxia, airway obstruction - Patient arrives after apparent choking episode in which she had decreased breath sounds, no signs of respiratory distress for EMS, arrives here saturating well, breathing comfortably, no stridor, no concern for upper airway obstruction, speaking in full sentences with no accessory muscle usage, will get chest x-ray to evaluate for any potential foreign body, monitor respiratory status for a period of time and if fine will discharge back to facility. - Chest x-ray clear for any foreign body, had mild pleural effusions, reportedly has heart failure and is on diuretics, her respiratory status is unlabored at this time, she is saturating in the high 90s, speaking in full sentences, does not clinically have rails so will not further intervene on this. When daughter came to bedside, she noted that patient was slightly more agitated than normal and had been grabbing at her groin region and so we did a straight cath which showed a moderate UTI, she had no vital signs indicating sepsis, had a reassuring abdominal exam and so we gave her a first dose of Keflex and discharged her back to her facility with the remainder of the course, encouraged to follow-up with the facility physician in a few days for reevaluation, strict return precautions given to family members and agreeable with plan of care. Lab Data Radiology Impressions Chest X-Ray 02/14/25 21:39 IMPRESSION: Moderate left and small right pleural effusions. Laboratory Results Urine Color Dark yellow (Yellow) A 02/14/25:52 Urine Appearance Cloudy (CLEAR) A 02/14/25 23:52 Urine pH 5.0 (5-7) 02/14/25 23:52 Ur Specific [place] 1.031 (1.005-1.030) H 02/14/25 23:52 Urine Protein 4+ (Negative) A 02/14/25 23:52 Urine Glucose (UA) Negative (Normal) 02/14/25 23:52 Urine Ketones Trace (Negative) 02/14/25 23:52 Urine Blood 3+ (Negative) A 02/14/25:52 Urine Nitrate Negative (Negative) 02/14/25:52 Urine Bilirubin Negative (Negative) 02/14/25 23:52 Urine Urobilinogen 1.0 mg/dL (Negative) 02/14/25 23:52 Ur Leukocyte Esterase Trace (Negative) A 02/14/25 23:52 Urine RBC 3-5 /hpf (0-2) 02/14/25 23:52 Urine WBC >100 /hpf (0-5) H 02/14/25 23:52 Ur Squamous Epith Cells 0-5 /hpf (0-5) 02/14/25 23:52 Amorphous Sediment Not Reportable 02/14/25 23:52 Urine Bacteria 4+ /hpf (NONE) H 02/14/25 23:52 Hyaline Casts 54.60 /lpf 02/14/25 23:52 All radiology interpretation(s) finalized by discharge Discharge Plan Discharge Patient Disposition: Home Clinical Impression: Choking, Acute UTI Condition: Stable Prescriptions: New cephalexin 500 mg capsule 500 mg PO Q6H Qty: 20 0RF Discharge Orders: Discharge ED (Routine); Ordered 02/15/25 Ordered By: Vimal Marina Referrals: Glody Segura DO [Primary Care Provider, Internal Medicine] Discharge Diet: Usual diet Discharge Activity: Resume usual activity Patient Instructions: Opioid Safety, Pain Management, Patient Portal & Shakira Instructions Activity Restrictions/Additional Instructions: You were seen for your possible episode of aspirating pills, you were evaluated with an x-ray which was negative and you had reassuring oxygen levels and so you were deemed stable. On your urine test, you had a moderate urinary tract infection, to treat this, take the Keflex 500 mg every 6 hours for a total of 5 days, take this with food if possible. Follow-up with your primary care physician in a week's time to reevaluate the status of your infection. Return to the ED with severe worsening of your breathing or abdominal pain, fevers, continuous vomiting, inability to eat or drink, any other emergent concerns. Print Language: Georgian Coding Level of Care Code ED Textile Cutting Machine Operator for Jacobo Ochoa
--- NOTE | 2025-02-14 21:39 | XRR_ITS ---
PROCEDURE INFORMATION: Exam: XR Chest Exam date and time: 02/14/2025 9:47 PM Age: 84 years old Clinical indication: Other: Eval for aspiration; Additional info: Potential aspiration TECHNIQUE: Imaging protocol: Radiologic exam of the chest. Views: 1 view. COMPARISON: CR XR chest 1V portable [id number] 07/28/2023 7:13 PM FINDINGS: Lungs: Unremarkable. No consolidation. Pleural spaces: Moderate left and small right pleural effusions. Heart/Mediastinum: Cardiomegaly. Bones/joints: Left shoulder ORIF with plate and screws. XR/XR chest 1V portable [id number] IMPRESSION: Moderate left and small right pleural effusions.
[2025-02-14 22:23] VITALS: BP 147/91; PULSE 94; O2SAT 94
[2025-02-15] VITALS: RESP 22
[2025-02-15] LABS: Glucose Urine UA Negative (Normal); Nitrate Urine Negative (Negative)
[2025-02-15] MEDS: oxyCODONE 5 mg IR Tab/Cap PO
[2025-02-15 00:04] VITALS: BP 137/93; PULSE 95; O2SAT 90
[2025-02-15 00:07] LABS: Add Urine Microscopic? YES; Universal Test for UA Present (0)
[2025-02-15 00:13] LABS: Specific Gravity, Urine 1.031 (1.005-1.030)
--- NOTE | 2025-02-15 01:06 | PC.NURSE ---
Called report to [facility] and they are aware of patient's diagnosis and prescription.
[2025-02-15 01:23] VITALS: BP 145/88; PULSE 86; O2SAT 90
== END 2025-02-15 01:26 | disposition home or self-care (01) ==
PROVIDERS: Emergency Provider Student in an Organized Health Care Education/Training Program; PCP Internal Medicine
DX: N39.0 Urinary tract infection, site not specified (principal); T17.998A Other foreign object in respiratory tract, part unspecified causing other injury, initial encounter; X58.XXXA Exposure to other specified factors, initial encounter; J44.9 Chronic obstructive pulmonary disease, unspecified; I12.9 Hypertensive chronic kidney disease with stage 1 through stage 4 chronic kidney disease, or unspecified chronic kidney disease; N18.9 Chronic kidney disease, unspecified
CPT/HCPCS: 71045; 81001; 87077; 87086; 87186; 99284; J9999

== ENCOUNTER 2025-02-19 15:17 | Inpatient (IN) | payer MEDICARE, MEDICAID, SELFPAY ==
[2025-02-19 15:16] VITALS: BP 150/92; PULSE 90; RESP 17; TEMP 36.7; O2SAT 94; BMI 27.3
--- OUTSIDE RECORDS SUMMARY | 2025-02-19 15:19 | XMS_ITS | Data Portability ---
Author Organization [facility] Kirti Siegel [facility] Address [address] [address] Assessment No assessment recorded. Plan of Treatment [...] Modified By Organization Details Last Modified Time 10/19/2024 [id number] tx with prednisone 20mg x 5 days. albuterol nebulizer x 5days. [email or web address] Not available 10/19/2024 15:31:33 11/02/2024 [id number] No issues per staff, mood good. [email or web address] Not available 11/02/2024 13:52:02 12/28/2024 [id number] Doing well, vitals stable. Mood good. No issues per staff. [email or web address] Not available 12/28/2024 15:09:20 01/25/2025 [id number] Bakers cyst behind right knee, staff reassured. Will schedule tramadol tid. [email or web address] Not available 01/25/2025 15:54:21 02/01/2025 [id number] staff concerned for edema, but no worse than usual, does have some abrasions on right galindo from scratching. [email or web address] Not available 02/02/2025 11:10:40 Reason for Referral None Reported. Problems Name Problem SNOMED Code Status Onset Date Resolution Date Notes Provider Name and Address Organization Details Recorded Time Hyperten sive disorder 98574836 Completed 201306/24/2013 Hyperten anne-marie - Status is Inactive ; 06/25/19 14 10:31AM by Jesse Harrison MD, Annotati on/Adden dum; Promoted ; acuity set as *; Not Available [facility] 3 03:18:14 Kidney disease 70279567 Active 2015 Kidney Disease; 07/21/19 16 9:50AM by Roberta Zamudio LPN, Office Visit; Promoted ; acuity set as *; Not Available [facility] 3 03:18:14 Hypothyr oidism 70810624 Active 2021 HYPOTHYR OIDISM; Recorded 07/18/19 22 11:25AM by Marlon Mancia al Summary; Promoted ; acuity set as *; Not Available [facility] 3 03:18:14 Severe dementia 30252828962 4105 Active [address], [address] [place] [address] , [facility] 4 18:33:11 [facility] hyperten anne-marie 59196361 Active [address] [place] [place] [address] , [facility] 4 18:38:10 Chronic kidney disease stage 3 646205965 Active 2023 [place] [address] , [facility] 4 18:38:12 Inapprop riate sexual behavior 444859843 Active 2023 LUCIE dinh [facility] 4 14:04:33 Edema of left lower leg 657429153 Active 2024 LUCIE dinh [facility] 5 15:38:20 Need for personal care assistan 45828938396 277373 Active 2024 LUCIE DUBON [facility], [facility], [facility] 5 11:34:55 Problem Notes None recorded. Medical [...] every day by oral route at bedtime. active Not Available Not Available No t Available triamcino lone acetonide 0.1 % topical [...] 16 2:03PM by Roberta Zamudio LPN (Authori zed through [...] Available furosemid e daily 07/09 completed DM/MG; 66617; Recorded 09/30/19 22 2:25PM by Dasha Whitehead (Authori zed through Goldy Segura DO), Annotati on/Adden dum; Mail Order Quantity : 90 Tablet; Refill Quantity : 30; Tablet; Not Available Not Available Not Available carvedilo l twice daily 07/09 completed DM/MG; 13908; Recorded 09/30/19 22 2:25PM by Dasha Whitehead [...] 07/09 completed Recorded 03/22/19 10:34AM by Alexandria Burgess RN, Office Visit; Not Available Not Available Not Available [facility] Levothyro xine Sodium daily 07/09 completed DM/MG; 77555; Recorded 09/30/19 2:29PM by Dasha Whitehead (Authori zed through David Eng , DO), Annotati on/Adden dum; Mail Order Quantity : 90 Tablet; Refill Quantity : 30; Tablet; Not Available Not Available Not Available donepezil daily 07/09 completed DM/Mg; 90897; Recorded 12/19/19 12:19PM by Dasha Whitehead (Authori zed through Rethink Books[employer] [email or web address]), Refill Request; Mail Order Quantity : 90 Tablet; Refill Quantity : 30; Tablet; Not Available Not Available Not Available Nifedipin e ER daily 07/09 completed DM/MG; 12321; Recorded 09/30/19 2:30PM by Dasha Whitehead (Authori zed through Rethink Bookssridevi DO), Annotati on/Adden dum; Mail Order Quantity : 90 Tablet; Refill Quantity : 30; Tablet; Not Available Not Available Not Available Calmosept ine 0.44 %-20.6 % topical ointment active Not Available Not Available Not Available Vitals Date Recorded Body height Body mass index (BMI) Body weight Heart rate Respiratory rate Body temperature Oxygen saturation Systolic And Diastolic Provider Name and Address Organization Details Last Updated DateTime 5 152.4 cm 31.1 kg/m2 91964.1 9 g 70 /min 16 /min 97.7 [degF] 94 % 149/83 mm[Hg] LUCIE DUBON [facility], LVarsha 5 15:29:13 Date Recorded Body height Body mass index (BMI) Body weight Heart rate Respiratory rate Body temperature Oxygen saturation Systolic And Diastolic Provider Name and Address Organization Details Last Updated DateTime 5 152.4 cm 31.4 kg/m2 64369.3 7 g 84 /min 16 /min 97.7 [degF] 92 % 137/86 mm[Hg] [facility] 5 13:49:44 Date Recorded Body height Body mass index (BMI) Body weight Heart rate Respiratory rate Body temperature Oxygen saturation Systolic And Diastolic Provider Name and Address Organization Details Last Updated DateTime 5 152.4 cm 31.6 kg/m2 23079.9 6 g 87 /min 18 /min 97.7 [degF] 98 % 151/81 mm[Hg] [facility] 5 15:07:57 Date Recorded Body height Body mass index (BMI) Body weight Heart rate Respiratory rate Body temperature Oxygen saturation Systolic And Diastolic Provider Name and Address Organization Details Last Updated DateTime 5 152.4 cm 31.6 kg/m2 92246.9 6 g 88 /min 22 /min 97.7 [degF] 94 % 158/77 mm[Hg] [facility] 5 15:51:48 Date Recorded Body height Body mass index (BMI) Body weight Heart rate Respiratory rate Body temperature Oxygen saturation Systolic And Diastolic Provider Name and Address Organization Details Last Updated DateTime 5 152.4 cm 31.8 kg/m2 31220.5 6 g 82 /min 17 /min 98.1 [degF] 93 % 155/99 mm[Hg] [facility] 5 11:07:52 Social History None recorded. Functional Status Question Answer Note LastModified by Organizat ion Details LastModified Time Do you use any illicit or recreational drugs? No [email or web address] Information not available 06/06/2022 Do you or have you ever used any other forms of tobacco or nicotine? No [email or web address] Information not available 06/06/2022 What is your level of alcohol consumption? None [email or web address] Information not available 06/06/2022 Mental Status None recorded. Family History Nothing Reported. Medical History No medical history recorded. Gynecological HistoryNo gynecological history recorded. Obstetrics History GPAL:G 0 P 0 0 0 0 Immunizations Vaccine Type Date Status Note Provider Nam e and Address Organization Details Recorded Time Pneumococcal conjugate PCV 13 6 completed Not Available [facility] 02/01/2025 14:30:02 COVID-19, mRNA, LNP-S, PF, 50 mcg/0.5 mL 5 completed Not Available [facility] 02/01/2025 14:30:02 Tdap 6 completed Not Available [facility] 09/22/2022 02:33:24 Past Encounters Encounter ID Performer Location Encounter Start Date Encounter Closed Date Diagnosis/Indication Diagnosis SNOMED-CT Code Diagnosis ICD10 Code Diagnosis IMO Codes Diagnosis Note [id number] David Eng DO [facility] ([facility]) [address] [place] [id number] 06/06/2022 12:15:33 06/11/2022 17:57:06 Pruritic rash 86142306 L28.2 Adult heal th examination 810958641 Z00.00 I counseled patient on diet, exercise, weight, and mental health. We discussed appropriat e cancer screenings . All questions were addressed. We will obtain wellness labs with phone followup. Cardiomyopathy 35010459 I42.9 hx of. will get labs. Alzheimer's disease 2692 9004 G30.9 progressin g, family does not want any new medication s. counseled on expectatio ns. recommend C eval and home saftey eval. Chronic ki dney disease stage 4 761969071 N18.4 labs today. counseled Need for p ersonal care assistance 1371054294 7019137 Z74.1 Frail elderly 153325502 R54 Walking disability 06355 8008 R26.2 [id number] David Eng DO [facility] ([facility]) [address] [place] [id number] 07/10/2023 17:13:43 07/10/2023 18:02:27 Severe dementia 7881070443 20515 F03.C2 Patient's dementia has progressed significan tly since 1 year ago. She now has severe dementia without the ability to control her emotions. She is not oriented to person place or time. Family unable to continue to provide care at home even with 24/7 care. I agree with need for placement for long-term [facility] care and a dementia facility. Patient cannot [...] of this patient's office visit today. Hypothyroidism 41791199 E03.9 Stable. Continue current dosage of Levothyrox ine. We will repeat Thyroid labs with phone followup. Essential hypertension 26860497 I10 Stop hydrochlor othiazide. Continue nifedipine , lisinopril , Carvedilol . Chronic ki dney disease stage 3 302807391 N18.30 Repeat labs today. Stop allopurino l. [id number] Goldy Segura DO [facility] ([facility]) [address] [place] [address] 5 07/30/2023 08:27:25 08/06/2023 10:22:39 Chronic kidney disease stage 3 867993637 N18.30 Severe dementia 44382710 01 35914 F03.C2 Essential hypertension 17952642 I10 [id number] Godly Segura DO [facility] ([facility]) [address] [place] [address] 5 09/03/2023 08:18:44 09/03/2023 18:02:07 Severe dementia 9133310280 87801 F03.C2 Chronic ki dney disease stage 3 937784093 N18.30 Essential hypertension 12526259 I10 [id number] Goldy Segura DO [facility] ([facility]) [address] [place] [address] 5 10/01/2023 09:23:55 10/01/2023 16:24:10 Chronic kidney disease stage 3 617668021 N18.30 Essential hypertension 03537469 I10 Severe dementia 87861795 01 94323 F03.C2 [id number] Golyd Segura DO [facility] ([facility]) [address] [place] [address] 5 11/07/2023 08:26:41 11/07/2023 16:12:42 Severe dementia 7517641844 83093 F03.C2 Chronic ki dney disease stage 3 770929152 N18.30 Essential hypertension 46298497 I10 [id number] Goldy Segura DO [facility] ([facility]) [address] [place] [address] 5 11/26/2023 08:35:59 11/26/2023 14:58:08 Severe dementia 2482716770 37851 F03.C2 Chronic ki dney disease stage 3 107526170 N18.30 Essential hypertension 52152400 I10 [id number] Goldy Segura [facility] ([facility]) [address] [place] [address] 5 12/10/2023 11:51:49 12/10/2023 17:18:37 Severe dementia 5887877228 94410 F03.C2 Inappropri ate sexual behavior 312196501 F65.9 [id number] Goldy Segura [facility] ([facility]) [address] [place] [address] 5 12/31/2023 13:23:30 01/01/2024 10:31:19 Inappropriate sexual behavior 992093650 F65.9 Severe dementia 68934501 01 75586 F03.C2 [id number] Goldy Segura [facility] ([facility]) [address] [place] [address] 5 02/18/2024 08:19:05 03/02/2024 16:47:45 Chronic kidney disease stage 3 406507943 N18.30 Severe dementia 55420920 01 15151 F03.C2 Essential hypertension 16313353 I10 [id number] Goldy Segura [facility] ([facility]) [address] [place] [address] 5 03/09/2024 12:30:36 03/12/2024 08:26:29 Severe dementia 1407421883 26189 F03.C2 Chronic ki dney disease stage 3 134192248 N18.30 Essential hypertension 43003793 I10 [id number] Goldy Segura [facility] ([facility]) [address] [place] [address] 5 03/17/2024 13:33:07 03/19/2024 10:01:52 Severe dementia 5404224956 69988 F03.C2 [id number] Goldy Segura [facility] ([facility]) [address] [place] [address] 5 03/30/2024 14:00:10 03/31/2024 22:57:01 Edema of left lower leg 018366446 R60.0 [id number] Goldy Segura [facility] ([facility]) [address] [place] [address] 5 04/13/2024 07:50:43 04/21/2024 07:45:03 Severe dementia 8794328102 80160 F03.C2 Essential hypertension 14610929 I10 [id number] Goldy Imelda [facility] ([facility]) [address] [place] [address] 5 05/14/2024 08:00:08 05/18/2024 12:52:00 Severe dementia 2977314243 54509 F03.C2 Hypothyroidism 30818722 E03.9 Need for [facility] care assistance 5414326485 3187315 Z74.1 [id number] Goldy Segura [facility] ([facility]) [address] [place] [address] 5 05/25/2024 13:50:52 05/26/2024 07:44:47 Edema of lower extremity 267030300 R60.0 left [id number] Goldy Imelda [facility] ([facility]) [address] [place] [address] 5 06/08/2024 07:56:24 06/17/2024 07:42:16 Inappropriate sexual behavior 960841310 F65.9 Severe dementia 13119509 01 83227 F03.C2 Chronic ki dney disease stage 3 628872898 N18.30 Essential hypertension 68045717 I10 [id number] Goldy Segura [facility] ([facility]) [address] [place] [address] 5 08/13/2024 08:38:18 08/18/2024 13:22:42 Severe dementia 2307637883 90457 F03.C2 Inappropri ate sexual behavior 921072388 F65.9 [id number] Goldy Segura [facility] ([facility]) [address] [address] 5 09/17/2024 11:39:57 09/30/2024 08:33:44 Severe dementia 8457965796 00040 F03.C2 Essential hypertension 21788061 I10 Chronic ki dney disease stage 3 510031465 N18.30 [id number] Goldy Segura DO [facility] ([facility]) [address] [place] [address] 5 10/12/2024 12:32:58 10/13/2024 16:49:40 Severe dementia 7414482915 47860 F03.C2 Chronic ki dney disease stage 3 838496572 N18.30 Essential hypertension 59206398 I10 [id number] Goldy Segura DO [facility] ([facility]) [address] [place] [address] 5 10/19/2024 14:25:50 10/20/2024 08:57:04 Severe dementia 2224585182 82289 F03.C2 [facility] 63321734 J40 88497 [id number] Goldy Segura DO [facility] ([facility]) [address] [place] [address] 5 11/02/2024 12:05:52 11/03/2024 15:22:14 Inappropriate sexual behavior 361534388 F65.9 Severe dementia 79801324 01 70786 F03.C2 Essential hypertension 58740359 I10 Chronic ki dney disease stage 3 293343894 N18.30 Kidney disease 22698905 N28.9 [id number] Goldy Segura DO [facility] ([facility]) [address] [place] [address] 5 12/28/2024 12:42:57 12/31/2024 15:53:10 Hypothyroidism 28134829 E03.9 Severe dementia 49074939 01 36033 F03.C2 Chronic ki dney disease stage 3 144517274 N18.30 Essential hypertension 51750795 I10 Kidney disease 75624243 N28.9 [id number] Goldy Segura DO [facility] ([facility]) [address] [place] [address] 5 01/25/2025 13:53:36 01/27/2025 12:28:59 Chronic kidney disease stage 3 377773365 N18.30 Severe dementia 76378969 01 31152 F03.C2 Synovial c yst of right knee 2493194440 31586 M71.21 [id number] [id number] Goldy Segura DO [facility] ([facility]) [address] [place] [address] 02/01/2025 14:29:41 02/04/2025 16:34:32 Bilateral lower limb edema 788538454 R60.0 3078301 left Health Concerns Section Related Observation LastModified by Organization Detai ls LastModified Time None Recorded Concern Status LastModified by Organization Details LastModified Time None Recorded Advance Directives Directive None Recorded Payers Insurance Date Sequence Insurance Name Policy Number Policy Sainz Covered Member ID Sainz Member ID Guarantor Name 01/28/2025 2 [place] Lanny Zamudio [id number] Lanny Zamudio 01/26/2025 [place] [facility] Lanny Zamudio [id number] Lanny Zamudio 02/01/2025 1 [employer] (MEDICARE REPLACEMENT/ ADVANTAGE - PPO) Lanny Zamudio [id number] Lanny Zamudio Notes Date Note Type Note Provider Name and Address Organization Details Recorded Time 10/19/2024 text/html CoughReported by PatientHPIFor quality, patient reportsdry. For severity, patient reportsmild. For duration, patient reportsacute (<3 weeks).ROS as noted in the HPI staff reports cough over the weekend. Goldy Segura DO [address] [place] [address], [phone], [facility]. 10/19/2024 17:05:13 11/02/2024 text/html CoughReported by PatientHPIFor quality, patient reportsdry. For severity, patient reportsmild. For duration, patient reportsacute (<3 weeks).ROS as noted in the HPI no complaints per staff or patient. Goldy Segura DO [address] [place] [address], [phone], [facility], LSivakumar. 11/02/2024 15:07:38 12/28/2024 text/html CoughReported by PatientHPIFor quality, patient reportsdry. For severity, patient reportsmild. For duration, patient reportsacute (<3 weeks).ROS as noted in the HPI no complaints per staff or patient. Goldy DonaldsonDO mikki [address] [place] [address], [phone], [facility] 12/30/2024 15:30:08 01/25/2025 text/html CoughReported by PatientIFor quality, patient reportsdry. For severity, patient reportsmild. For duration, patient reportsacute (<3 weeks).ROS as noted in the HPI no complaints per staff or patient. Goldy Segura DO [address] [place] [address], [phone], [facility] 01/25/2025 16:16:06 02/01/2025 text/html CoughReported by PatientIFor quality, patient reportsdry. For severity, patient reportsmild. For duration, patient reportsacute (<3 weeks).ROS as noted in the HPI no complaints per staff or patient. Goldy Segura DO [address] [place] [address], [phone], [facility] 02/03/2025 17:06:27 OBGyn Episode No OBEpisode recorded.
--- OUTSIDE RECORDS SUMMARY | 2025-02-19 15:19 | XMS_ITS | Continuity of Care Document ---
Author Organization [facility], [facility] ([facility]) Address [address] [place] [address] Assessment No assessment recorded. Plan of Treatment [...] Modified By Organization Details Last Modified Time 02/01/2025 [id number] staff concerned for edema, but no worse than usual, does have some abrasions on right galindo from scratching. [email or web address] Not available 02/02/2025 11:10:40 Reason for Referral None Reported. Problems Name Problem SNOMED Code Status Onset Date Resolution Date Notes Provider Name and Address Organization Details Recorded Time Hyperten sive disorder 55018319 Completed 201306/24/2013 Hyperten anne-marie - Status is Inactive ; 06/25/19 14 10:31AM by Jesse Harrison MD, Annotati on/Adden dum; Promoted ; acuity set as *; Not Available [facility] 3 03:18:14 Kidney disease 45784270 Active 2015 Kidney Disease; 07/21/19 16 9:50AM by Roberta Zamudio LPN, Office Visit; Promoted ; acuity set as *; Not Available [facility] 3 03:18:14 Hypothyr oidism 22755965 Active 2021 HYPOTHYR OIDISM; Recorded 07/18/19 22 11:25AM by Marlon Mancia al Summary; Promoted ; acuity set as *; Not Available [facility] 3 03:18:14 Severe dementia 90597461298 4105 Active 2023 David Eng, [address], [address] [place] [address] , [facility] 4 18:33:11 [facility] hyperten anne-marie 95083297 Active 2023 David Eng, [address], [address] , [facility] 4 18:38:10 Chronic kidney disease stage 3 370138752 Active [address], [address] , [facility] 4 18:38:12 Inapprop riate sexual behavior 242339891 [facility] 14:04:33 Edema of left lower leg 825235709 Active 2024 LUCIE DUBON [facility] 5 15:38:20 Need for personal care assistan 48615866995 626404 Active 2024 [facility] 5 11:34:55 Problem Notes None recorded. Medical [...] 16 9:09AM by Roberta Zamudio LPN (Authori katie through [...] Available furosemid e daily 07/09 completed DM/MG; 73774; Recorded 09/30/19 22 2:25PM by Dasha Whitehead (Authori zed through Goldy Segura DO), Annotati on/Adden dum; Mail Order Quantity : 90 Tablet; Refill Quantity : 30; Tablet; Not Available Not Available Not Available carvedilo l twice daily 07/09 completed DM/MG; 74360; Recorded 09/30/19 22 2:25PM by Dasha Whitehead [...] Available [facility] 07/09 completed Recorded 03/22/19 15 10:34AM by Alexandria Burgess RN, Office Visit; Not Available Not Available Not Available [facility] Levothyro xine Sodium daily 07/09 completed DM/MG; 86454; Recorded 09/30/19 22 2:29PM by Dahsa Whitehead (Authori zed through David Eng DO), Annotati on/Adden dum; Mail Order Quantity : 90 Tablet; Refill Quantity : 30; Tablet; Not Available Not Available Not Available donepezil daily 07/09 completed DM/Mg; 88002; Recorded 12/19/19 12:19PM by Dasha Whitehead (Flory wilson through David Eng DO), Refill Request; Mail Order Quantity : 90 Tablet; Refill Quantity : 30; Tablet; Not Available Not Available Not Available Nifedipin e ER daily 07/09 completed DM/MG; 13291; Recorded 09/30/19 22 2:30PM by Dasha Whitehead (Flory wilson through David Eng DO), Annotati on/Adden dum; Mail Order Quantity [...] and Address Organization Details Last Updated DateTime 152.4 cm 31.8 kg/m2 17869.5 6 g 82 /min 17 /min 98.1 [degF] 93 % 155/99 mm[Hg] LUCIE FISHER [facility], [facility] 5 11:07:52 Social History None recorded. Functional Status Question Answer Note LastModified by Organizat ion Details LastModified Time Do you use any illicit or recreational drugs? No [email or web address] Information not available 06/06/2022 Do you or have you ever used any other forms of tobacco or nicotine? No [email or web address] Information not available 06/06/2022 What is your level of alcohol consumption? None [email or web address] Information not available 06/06/2022 Mental Status None recorded. Family History Nothing Reported. Medical History No medical history recorded. Gynecological HistoryNo gynecological history recorded. Obstetrics History GPAL:G 0 P 0 0 0 0 Immunizations Vaccine Type Date Status Note Provider Nam e and Address Organization Details Recorded Time Pneumococcal conjugate PCV 13 6 completed Not Available [facility] 02/01/2025 14:30:02 COVID-19, mRNA, LNP-S, PF, 50 mcg/0.5 mL 5 completed Not Available [facility] 02/01/2025 14:30:02 Tdap 6 completed Not Available [facility] 09/22/2022 02:33:24 Past Encounters Encounter ID Performer Location Encounter Start Date Encounter Closed Date Diagnosis/Indication Diagnosis SNOMED-CT Code Diagnosis ICD10 Code Diagnosis IMO Codes Diagnosis Note [id number] Goldy Segura DO [facility] ([facility]) [address] [place] [address] 01/25/2025 13:53:36 01/27/2025 12:28:59 Chronic kidney disease stage 3 981610121 N18.30 Severe dementia 51071284 01 36346 F03.C2 Synovial c yst of right knee 7207659936 49703 M71.21 [id number] Goldy Segura DO [facility] ([facility]) [address] [place] [address] 02/01/2025 14:29:41 02/04/2025 16:34:32 Bilateral lower limb edema 239540245 R60.0 0156219 left Health Concerns Section Related Observation LastModified by Organization Detai ls LastModified Time None Recorded Concern Status LastModified by Organization Details LastModified Time None Recorded Payers Encounter Date Sequence Insurance Name Policy Number Policy Sainz Covered Member ID Sainz Member ID Guarantor Name 02/01/2025 1 [employer] (MEDICARE REPLACEMENT/ ADVANTAGE - PPO) Lanny Zamudio [id number] Lanny Zamudio 02/01/2025 2 [place] Lanny Zamudio [id number] Lanny Zamudio Notes Date Note Type Note Provider Name and Address Organization Details Recorded Time 02/01/2025 text/html CoughReported by PatientHPIFor quality, patient reportsdry. For severity, patient reportsmild. For duration, patient reportsacute (<3 weeks).ROS as noted in the HPI no complaints per staff or patient. Goldy Segura DO [address] [place] [address], [phone], [facility], Kirti 02/03/2025 17:06:27 OBGyn Episode No OBEpisode recorded.
--- OUTSIDE RECORDS SUMMARY | 2025-02-19 15:19 | XMS_ITS | Continuity of Care Document ---
Author Organization [employer] ([facility]) Address [address] [place] [address] Insurance Providers Payer Plan Claims Address Claims Phone Policy Number Group Number Relation Employer Guarantor Name Guarantor Guarantor Address Guarantor Phone [employer] [address] [address], [place] [address] tel:[phone] [id number] Self Lanny Zamudio [address] [place] [address] [employer]US [id number] HMO [address] [address], [place] [address] tel:[phone] [id number] Self Lanny Zamudio [address] [place] [address] [employer] MCR ADV [address] [address], [place] [address] tel:[phone] [id number] Self Lanny Zamudio [address] [place] [address] Problems Condition ICD9 code ICD10 code SNOMED code Start Date End Date S tatus Chronic kidney disease, stage 3 unspecified N18.30 07/29/2023 Activ e Hypothyroidism, unspecified E03.9 07/29/2023 Active Bronchitis, not specified as acute or chronic J40 10/19/2024 Activ e Synovial cyst of popliteal space [Penaloza], right knee M71.21 01/25/2025 Active Urinary tract infection, site not specified N39.0 02/15/2025 Active Results Test Result Date/Time Value / [...] inhalatio n 1.0 8.0 h 10/24 Active Arexvy (PF) (rsvpref3 antigen-as01e (pf)) 120 mcg/0.5 mL suspension for reconstitution (Arexvy (PF) (rsvpref3 antigen-as01e (pf))) 0.5ml, intramuscular , Once - One Time intramusc ular 1.0 10/13 Active prednisone 20 mg tablet (prednisone) 1, oral, Once A Day oral 1.0 1.0 d 10/24 Active Afluria 6688-6307 (3yr up)(PF) (flu vac em3380-11 36mos up(pf)) 45 mcg (15 mcg x 3)/0.5 m syringe (Afluria (3yr up)(PF) (flu vac au0300-79 36mos up(pf))) 0.5ml, intramuscular , Once - One Time intramusc ular 1.0 12/08 Active Afluria 8843-2415 (3yr up)(PF) (flu vac rv7345-88 36mos up(pf)) 45 mcg (15 mcg x 3)/0.5 m syringe (Afluria (3yr up)(PF) (flu vac ki9831-00 36mos up(pf))) 0.5ml, intramuscular , Once - [...] pain oral 1.0 8.0 h 2024 Active cephalexin 500 mg capsule (cephalexin) 1, oral, Every 6 Hours oral 1.0 6.0 h 02/19 Active cephalexin 500 mg capsule (cephalexin) 1, oral, Every 6 Hours oral 1.0 6.0 h 02/15 Active Macrobid (nitrofurantoin monohyd/m-cryst ) 100 mg capsule (Macrobid (nitrofurantoin monohyd/m-cryst )) 1 cap, oral, Twice A Day, Administer 1 cap po BID x 7 days oral 1.0 12.0 h 02/25 Active cephalexin 500 mg capsule (cephalexin) 1, oral, Every 6 Hours oral 1.0 6.0 h 02/18 Active Vital Signs Date Vital Result Comment 03/28/2024 05:12 PM Body Weight (34320-1) 155.8 [lb_av ] Body Mass Index (10246-9) 30.42 kg/m2 04/01/2024 01:27 PM Temperature (8310-5) 97.8 [degF] Oxygen Saturation (58333-6) 97 % Respiratory Rate (9279-1) 17 /min Heart Rate (8867-4) 82 /min Blood Pressure Systolic (8480-6) 149 mm[Hg] Blood Pressure Diastolic (8462-4) 82 mm[Hg] 04/08/2024 01:54 PM Temperature (8310-5) 98.3 [degF] Oxygen Saturation (93705-6) 97 % Respiratory Rate (9279-1) 17 /min Heart Rate (8867-4) 65 /min Blood Pressure Systolic (8480-6) 137 mm[Hg] Blood Pressure Diastolic (8462-4) 63 mm[Hg] 04/15/2024 05:00 PM Temperature (8310-5) 98 [degF] Oxygen Saturation (45980-8) 95 % Respiratory Rate (9279-1) 18 /min Heart Rate (8867-4) 82 /min Blood Pressure Systolic (8480-6) 142 mm[Hg] Blood Pressure Diastolic (8462-4) 80 mm[Hg] 04/22/2024 09:03 AM Temperature (8310-5) 98.8 [degF] Oxygen Saturation (11964-0) 100 % Respiratory Rate (9279-1) 19 /min Heart Rate (8867-4) 83 /min Blood Pressure Systolic (8480-6) 153 mm[Hg] Blood Pressure Diastolic (8462-4) 78 mm[Hg] 04/25/2024 09:58 AM Body Weight (27288-9) 154 [lb_av] Body Mass Index (96520-7) 30.07 kg/m2 04/29/2024 09:48 AM Temperature (8310-5) 96.4 [degF] Oxygen Saturation (19097-5) 99 % Respiratory Rate (9279-1) 15 /min Heart Rate (8867-4) 56 /min Blood Pressure Systolic (8480-6) 168 mm[Hg] Blood Pressure Diastolic (8462-4) 90 mm[Hg] 05/06/2024 09:17 AM Temperature (8310-5) 97.9 [degF] Oxygen Saturation (14370-7) 96 % Respiratory Rate (9279-1) 17 /min Heart Rate (8867-4) 71 /min Blood Pressure Systolic (8480-6) 145 mm[Hg] Blood Pressure Diastolic (8462-4) 63 mm[Hg] 05/13/2024 02:43 PM Temperature (8310-5) 98.2 [degF] Oxygen Saturation (92331-4) 95 % Respiratory Rate (9279-1) 16 /min Heart Rate (8867-4) 66 /min Blood Pressure Systolic (8480-6) 105 mm[Hg] Blood Pressure Diastolic (8462-4) 56 mm[Hg] 05/20/2024 11:18 AM Temperature (8310-5) 97.8 [degF] Oxygen Saturation (42947-8) 98 % Respiratory Rate (9279-1) 17 /min Heart Rate (8867-4) 65 /min Blood Pressure Systolic (8480-6) 171 mm[Hg] Blood Pressure Diastolic (8462-4) 77 mm[Hg] 05/26/2024 05:37 PM Body Weight (98956-5) 157.4 [lb_av ] Body Mass Index (54329-2) 30.74 kg/m2 05/27/2024 05:13 PM Temperature (8310-5) 96.2 [degF] Oxygen Saturation (20659-5) 95 % Respiratory Rate (9279-1) 15 /min Heart Rate (8867-4) 74 /min Blood Pressure Systolic (8480-6) 130 mm[Hg] Blood Pressure Diastolic (8462-4) 76 mm[Hg] 06/03/2024 11:28 AM Temperature (8310-5) 96.1 [degF] Oxygen Saturation (57851-2) 98 % Respiratory Rate (9279-1) 17 /min Heart Rate (8867-4) 65 /min Blood Pressure Systolic (8480-6) 165 mm[Hg] Blood Pressure Diastolic (8462-4) 96 mm[Hg] 06/10/2024 04:35 PM Temperature (8310-5) 97.9 [degF] Oxygen Saturation (68107-6) 96 % Respiratory Rate (9279-1) 17 /min Heart Rate (8867-4) 86 /min Blood Pressure Systolic (8480-6) 151 mm[Hg] Blood Pressure Diastolic (8462-4) 79 mm[Hg] 06/17/2024 09:24 AM Temperature (8310-5) 97.8 [degF] Oxygen Saturation (49425-6) 95 % Respiratory Rate (9279-1) 14 /min Heart Rate (8867-4) 67 /min Blood Pressure Systolic (8480-6) 123 mm[Hg] Blood Pressure Diastolic (8462-4) 84 mm[Hg] 06/24/2024 02:56 PM Temperature (8310-5) 97.9 [degF] Oxygen Saturation (44223-1) 96 % Respiratory Rate (9279-1) 17 /min Heart Rate (8867-4) 67 /min Blood Pressure Systolic (8480-6) 128 mm[Hg] Blood Pressure Diastolic (8462-4) 77 mm[Hg] 06/25/2024 06:01 PM Body Weight (96722-2) 156.6 [lb_av ] Body Mass Index (94276-0) 30.58 kg/m2 11/04/2024 03:53 PM Temperature (8310-5) 97.3 [degF] Oxygen Saturation (30320-0) 94 % Respiratory Rate (9279-1) 17 /min Heart Rate (8867-4) 69 /min Blood Pressure Systolic (8480-6) 140 mm[Hg] Blood Pressure Diastolic (8462-4) 81 mm[Hg] 09/28/2024 03:18 PM Body Weight (33305-1) 159.6 [lb_av ] Body Mass Index (16899-2) 31.17 kg/m2 10/28/2024 02:43 PM Temperature (8310-5) 97.7 [degF] Oxygen Saturation (02858-3) 92 % Respiratory Rate (9279-1) 16 /min Heart Rate (8867-4) 84 /min Blood Pressure Systolic (8480-6) 137 mm[Hg] Blood Pressure Diastolic (8462-4) 86 mm[Hg] 10/07/2024 09:54 AM Temperature (8310-5) 97.3 [degF] Oxygen Saturation (95920-8) 95 % Respiratory Rate (9279-1) 20 /min Heart Rate (8867-4) 70 /min Blood Pressure Systolic (8480-6) 171 mm[Hg] Blood Pressure Diastolic (8462-4) 85 mm[Hg] 09/30/2024 10:35 AM Body Weight (17223-3) 159.8 [lb_av ] Body Mass Index (51524-5) 31.21 kg/m2 10/26/2024 03:45 PM Body Weight (06022-3) 161.6 [lb_av ] Body Mass Index (41603-8) 31.56 kg/m2 09/30/2024 05:44 PM Temperature (8310-5) 98 [degF] Oxygen Saturation (78069-5) 94 % Respiratory Rate (9279-1) 19 /min Heart Rate (8867-4) 78 /min Blood Pressure Systolic (8480-6) 156 mm[Hg] Blood Pressure Diastolic (8462-4) 82 mm[Hg] 10/21/2024 01:09 PM Temperature (8310-5) 98.4 [degF] Oxygen Saturation (62729-8) 97 % Respiratory Rate (9279-1) 17 /min Heart Rate (8867-4) 79 /min Blood Pressure Systolic (8480-6) 117 mm[Hg] Blood Pressure Diastolic (8462-4) 86 mm[Hg] 10/14/2024 02:43 PM Temperature (8310-5) 97.7 [degF] Oxygen Saturation (63870-0) 94 % Respiratory Rate (9279-1) 16 /min Heart Rate (8867-4) 70 /min Blood Pressure Systolic (8480-6) 149 mm[Hg] Blood Pressure Diastolic (8462-4) 83 mm[Hg] 09/29/2024 04:02 PM Body Weight (18765-7) 159 [lb_av] Body Mass Index (58127-2) 31.05 kg/m2 2024 02:09 PM Temperature (8310-5) 99.8 [degF] Oxygen Saturation (49001-5) 98 % Respiratory Rate (9279-1) 20 /min Heart Rate (8867-4) 66 /min Blood Pressure Systolic (8480-6) 151 mm[Hg] Blood Pressure Diastolic (8462-4) 88 mm[Hg] 09/02/2024 03:18 PM Temperature (8310-5) 98 [degF] Oxygen Saturation (03133-3) 95 % Respiratory Rate (9279-1) 17 /min Heart Rate (8867-4) 82 /min Blood Pressure Systolic (8480-6) 139 mm[Hg] Blood Pressure Diastolic (8462-4) 75 mm[Hg] 09/25/2024 09:39 AM Body Weight (53136-4) 161.8 [lb_av ] Body Mass Index (33333-5) 31.6 kg/m2 08/25/2024 01:48 PM Body Weight (35524-7) 156 [lb_av] Body Mass Index (98248-6) 30.46 kg/m2 09/16/2024 10:52 AM Temperature (8310-5) 97.2 [degF] Oxygen Saturation (49952-2) 94 % Respiratory Rate (9279-1) 17 /min Heart Rate (8867-4) 69 /min Blood Pressure Systolic (8480-6) 165 mm[Hg] Blood Pressure Diastolic (8462-4) 73 mm[Hg] 09/09/2024 01:50 PM Temperature (8310-5) 98 [degF] Oxygen Saturation (02141-7) 100 % Respiratory Rate (9279-1) 16 /min Heart Rate (8867-4) 68 /min Blood Pressure Systolic (8480-6) 167 mm[Hg] Blood Pressure Diastolic (8462-4) 73 mm[Hg] 11/11/2024 03:16 PM Temperature (8310-5) 97.5 [degF] Oxygen Saturation (63460-0) 98 % Respiratory Rate (9279-1) 17 /min Heart Rate (8867-4) 74 /min Blood Pressure Systolic (8480-6) 129 mm[Hg] Blood Pressure Diastolic (8462-4) 70 mm[Hg] 11/18/2024 12:53 PM Temperature (8310-5) 97.3 [degF] Oxygen Saturation (16243-2) 100 % Respiratory Rate (9279-1) 18 /min Heart Rate (8867-4) 89 /min Blood Pressure Systolic (8480-6) 164 mm[Hg] Blood Pressure Diastolic (8462-4) 79 mm[Hg] 11/24/2024 08:14 AM Temperature (8310-5) 97.3 [degF] 11/25/2024 11:14 AM Body Weight (00141-3) 160.8 [lb_av ] Body Mass Index (53681-0) 31.4 kg/m2 11/25/2024 07:55 PM Temperature (8310-5) 97.8 [degF] Oxygen Saturation (80929-8) 95 % Respiratory Rate (9279-1) 16 /min Heart Rate (8867-4) 80 /min Blood Pressure Systolic (8480-6) 141 mm[Hg] Blood Pressure Diastolic (8462-4) 84 mm[Hg] 12/02/2024 08:28 AM Temperature (8310-5) 98.3 [degF] Oxygen Saturation (92814-1) 98 % Respiratory Rate (9279-1) 20 /min Heart Rate (8867-4) 85 /min Blood Pressure Systolic (8480-6) 146 mm[Hg] Blood Pressure Diastolic (8462-4) 71 mm[Hg] 12/08/2024 06:59 PM Temperature (8310-5) 97.6 [degF] 12/09/2024 01:53 PM Oxygen Saturation (02140-7) 98 % Respiratory Rate (9279-1) 18 /min Heart Rate (8867-4) 80 /min Blood Pressure Systolic (8480-6) 142 mm[Hg] Blood Pressure Diastolic (8462-4) 72 mm[Hg] 12/09/2024 01:52 PM Temperature (8310-5) 97.6 [degF] 12/09/2024 09:13 PM Temperature (8310-5) 98.3 [degF] 12/10/2024 08:48 AM Temperature (8310-5) 98 [degF] 12/10/2024 07:10 PM Temperature (8310-5) 97.5 [degF] 12/16/2024 08:34 AM Temperature (8310-5) 98.3 [degF] Oxygen Saturation (71210-5) 98 % Respiratory Rate (9279-1) 16 /min Heart Rate (8867-4) 76 /min Blood Pressure Systolic (8480-6) 163 mm[Hg] Blood Pressure Diastolic (8462-4) 73 mm[Hg] 12/23/2024 02:56 PM Temperature (8310-5) 97.7 [degF] Oxygen Saturation (68497-5) 98 % Respiratory Rate (9279-1) 18 /min Heart Rate (8867-4) 87 /min Blood Pressure Systolic (8480-6) 151 mm[Hg] Blood Pressure Diastolic (8462-4) 81 mm[Hg] 12/26/2024 10:53 AM Body Weight (56624-7) 162.6 [lb_av ] Body Mass Index (19481-5) 31.75 kg/m2 12/30/2024 09:01 AM Temperature (8310-5) 97.4 [degF] Oxygen Saturation (91009-3) 96 % Respiratory Rate (9279-1) 17 /min Heart Rate (8867-4) 84 /min Blood Pressure Systolic (8480-6) 111 mm[Hg] Blood Pressure Diastolic (8462-4) 66 mm[Hg] 01/06/2025 05:03 PM Temperature (8310-5) 97 [degF] Oxygen Saturation (01910-9) 94 % Respiratory Rate (9279-1) 18 /min Heart Rate (8867-4) 82 /min Blood Pressure Systolic (8480-6) 140 mm[Hg] Blood Pressure Diastolic (8462-4) 88 mm[Hg] 01/13/2025 09:27 AM Temperature (8310-5) 97.3 [degF] Oxygen Saturation (08823-9) 95 % Respiratory Rate (9279-1) 16 /min Heart Rate (8867-4) 91 /min Blood Pressure Systolic (8480-6) 139 mm[Hg] Blood Pressure Diastolic (8462-4) 85 mm[Hg] 01/20/2025 12:15 PM Temperature (8310-5) 97.7 [degF] Oxygen Saturation (24342-5) 94 % Respiratory Rate (9279-1) 22 /min Heart Rate (8867-4) 88 /min Blood Pressure Systolic (8480-6) 158 mm[Hg] Blood Pressure Diastolic (8462-4) 77 mm[Hg] 01/25/2025 05:22 PM Body Weight (09900-8) 163.4 [lb_av ] Body Mass Index (24306-9) 31.91 kg/m2 01/27/2025 09:42 AM Temperature (8310-5) 98.1 [degF] Oxygen Saturation (54060-3) 93 % Respiratory Rate (9279-1) 17 /min Heart Rate (8867-4) 82 /min Blood Pressure Systolic (8480-6) 155 mm[Hg] Blood Pressure Diastolic (8462-4) 99 mm[Hg] 02/03/2025 05:33 PM Temperature (8310-5) 97.3 [degF] Oxygen Saturation (63858-8) 94 % Respiratory Rate (9279-1) 17 /min Heart Rate (8867-4) 82 /min Blood Pressure Systolic (8480-6) 148 mm[Hg] Blood Pressure Diastolic (8462-4) 88 mm[Hg] 02/10/2025 09:46 AM Temperature (8310-5) 97.8 [degF] Oxygen Saturation (77170-0) 93 % Respiratory Rate (9279-1) 16 /min Heart Rate (8867-4) 76 /min Blood Pressure Systolic (8480-6) 165 mm[Hg] Blood Pressure Diastolic (8462-4) 93 mm[Hg] 02/17/2025 04:49 PM Temperature (8310-5) 97.6 [degF] Oxygen Saturation (83955-8) 96 % Respiratory Rate (9279-1) 17 /min Heart Rate (8867-4) 72 /min Blood Pressure Systolic (8480-6) 134 mm[Hg] Blood Pressure Diastolic (8462-4) 68 mm[Hg] Social History No smoking Hx information available Encounters Type CPT Code Date Location Provider Indication s encounter report 07/29/2023 02:1 9 PM - 03/27/2024 04:16 PM Goldy Segura DO 01 encounter report 07/29/2023 02:1 9 PM - 02/14/2025 09:00 PM Goldy Segura DO 01
--- OUTSIDE RECORDS SUMMARY | 2025-02-19 15:19 | XMS_ITS | Continuity of Care Document ---
Author Organization [facility]ufino [facility], [facility] ([facility]) Address [address] [place] [address] Assessment No assessment recorded. Plan of Treatment [...] Modified By Organization Details Last Modified Time 12/28/2024 [id number] Doing well, vitals stable. Mood good. No issues per staff. [email or web address] Not available 12/28/2024 15:09:20 Reason for Referral None Reported. Problems Name Problem SNOMED Code Status Onset Date Resolution Date Notes Provider Name and Address Organization Details Recorded Time Hyperten sive disorder 97051843 Completed 201306/24/2013 Hyperten nane-marie - Status is Inactive ; 06/25/19 14 10:31AM by Jesse Harrison MD, Annotati on/Adden dum; Promoted ; acuity set as *; Not Available [facility] 3 03:18:14 Kidney disease 46568834 Active 2015 Kidney Disease; 07/21/19 16 9:50AM by Roberta Zamudio LPN, Office Visit; Promoted ; acuity set as *; Not Available [facility] 3 03:18:14 Hypothyr oidism 83983213 Active 2021 HYPOTHYR OIDISM; Recorded 07/18/19 22 11:25AM by Gucci Manciaic al Summary; Promoted ; acuity set as *; [facility] Available [facility] 3 03:18:14 Severe dementia 08829676241 4105 Active 2023 David Eng [address], [address] [place] [address] , [facility] 4 18:33:11 [place] [facility] hyperten anne-marie 84121417 Active [address], [address] [place] [address] , [facility] 4 18:38:10 Chronic kidney disease stage 3 123792769 Active [address], [address] [place] [address] , [facility] 4 18:38:12 Inapprop riate sexual behavior 409130576 [facility] 4 14:04:33 Edema of left lower leg 230101741 Active 2024 LUCIE DUBON [facility] 5 15:38:20 Need for personal care assistan 19060729360 331127 Active 2024 [facility] 5 11:34:55 Problem Notes None recorded. [...] Available furosemid e daily 07/09 completed DM/MG; 65951; Recorded 09/30/19 22 2:25PM by Dasha Whitehead (Authori zed through Goldy Segura DO), Annotati on/Adden dum; Mail Order Quantity : 90 Tablet; Refill Quantity : 30; Tablet; Not Available Not Available Not Available carvedilo l twice daily 07/09 completed DM/MG; 11192; Recorded 09/30/19 22 2:25PM by Dasha Whitehead [...] Levothyro xine Sodium daily 07/09 completed DM/MG; 51242; Recorded 09/30/19 22 2:29PM by Dasha Whitehead (Authori zed through David Eng DO), Annotati on/Adden dum; Mail Order Quantity : 90 Tablet; Refill Quantity : 30; Tablet; Not Available Not Available Not Available donepezil daily 07/09 completed DM/Mg; 79676; Recorded 12/19/19 12:19PM by Dasha Whitehead (Authori katie through [employer]), Refill Request; Mail Order Quantity : 90 Tablet; Refill Quantity : 30; Tablet; Not Available Not Available Not Available Nifedipin e ER daily 07/09 completed DM/MG; 30994; Recorded 09/30/19 2:30PM by Dasha Whitehead (Authori katie through [employer] ), Annotati on/Adden dum; Mail Order Quantity : [...] Updated DateTime 5 152.4 cm 31.6 kg/m2 27354.9 6 g 87 /min 18 /min 97.7 [degF] 98 % 151/81 mm[Hg] LUCIE JAGDISH [facility], [facility] 5 15:07:57 Social History None recorded. Functional Status Question Answer Note LastModified by Organizat ion Details LastModified Time Do you use any illicit or recreational drugs? No Information not available 06/06/2022 Do you or have you ever used any other forms of tobacco or nicotine? No [email or web address] Information not available 06/06/2022 What is your level of alcohol consumption? None [email or web address] Information not available 06/06/2022 Mental Status None recorded. Family History Nothing Reported. Medical History No medical history recorded. Gynecological HistoryNo gynecological history recorded. Obstetrics History GPAL:G 0 P 0 0 0 0 Immunizations Vaccine Type Date Status Note Provider Nam e and Address Organization Details Recorded Time Pneumococcal conjugate PCV 13 6 completed Not Available [facility] 02/01/2025 14:30:02 COVID-19, mRNA, LNP-S, PF, 50 mcg/0.5 mL 5 completed Not Available [facility] 02/01/2025 14:30:02 Tdap 6 completed Not Available [facility] 09/22/2022 02:33:24 Past Encounters Encounter ID Performer Location Encounter Start Date Encounter Closed Date Diagnosis/Indication Diagnosis SNOMED-CT Code Diagnosis ICD10 Code Diagnosis IMO Codes Diagnosis Note [id number] Goldy Segura DO [facility] ([facility]) [address] [place] [address] 12/28/2024 12:42:57 12/31/2024 15:53:10 Hypothyroidism 44171664 E03.9 Severe dementia 32692822 01 40908 F03.C2 Chronic ki dney disease stage 3 648261632 N18.30 Essential hypertension 26249159 I10 Kidney disease 26616550 N28.9 Health Concerns Section Related Observation LastModified by Organization Detai ls LastModified Time None Recorded Concern Status LastModified by Organization Details LastModified Time None Recorded Payers Encounter Date Sequence Insurance Name Policy Number Policy Sainz Covered Member ID Sainz Member ID Guarantor Name 12/28/2024 1 [employer] (MEDICARE REPLACEMENT/ ADVANTAGE - PPO) Lanny Zamudio [id number] Lanny Zamudio 12/28/2024 2 [place] Lanny Zamudio [id number] Lanny Zamudio Notes Date Note Type Note Provider Name and Address Organization Details Recorded Time 12/28/2024 text/html CoughReported by PatientHPIFor quality, patient reportsdry. For severity, patient reportsmild. For duration, patient reportsacute (<3 weeks).ROS as noted in the HPI no complaints per staff or patient. Goldy Segura DO [address] [place] [address], [phone], [facility] 12/30/2024 15:30:08 OBGyn Episode No OBEpisode recorded.
--- OUTSIDE RECORDS SUMMARY | 2025-02-19 15:19 | XMS_ITS | Clinical Summary ---
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 Pulse 60 04/21/2019 11:37 AM UNDERWATER PHOTOGRAPHER Temperature - - Respiratory Rate - - Oxygen Saturation - - Inhaled Oxygen Concentration - - Weight 78.2 kg (172 lb 4.8 oz) 04/21/2019 11:37 AM UNDERWATER PHOTOGRAPHER Height 152.4 cm (5') 04/21/2019 11:37 AM UNDERWATER PHOTOGRAPHER Body Mass Index 33.65 04/21/2019 11:37 AM UNDERWATER PHOTOGRAPHER Plan of Treatment Health Maintenance Due Date Last Done Comments Influenza Vaccine (#1) 2024 Pneumococcal Vaccine: 50+ Years Completed 09/08/2015, 10/17/2011 Pneumococcal Vaccine: Peds (0 to 5 Years) and At-Risk Patients (6 to 49 Years) Discontinued 09/08/2015, 10/17/2011 Hepatitis B Vaccine Aged Out No longe r eligible based on patient's age to complete this topic Insurance [facility] Medicare Medicaid [place] ([id number]) Care Teams Resident Hall Director Relationship Specialty Start Date End Date David Eng DO PCP - General Family Medicine 04/16/19
--- OUTSIDE RECORDS SUMMARY | 2025-02-19 15:19 | XMS_ITS | Encounter Summary ---
Author Organization [facility] Address [address] [place] [address] Phone Care Team Providers Care Marble Helper Name Role Phone David Eng DO Primary Care Provider [phone] Encounter Details Date Type Department Care Team (Late st Contact Info) Description 04/10/2019 Orders Only [place] [facility] [address] [place] [address] Chronic kidney disease, stage 4 [...] (HCC) documented in this encounter Care Teams Marble Helper Relationship Specialty Start Date End Date David Eng DO PCP - General Family Medicine 04/16/19 documented as of this encounter
--- OUTSIDE RECORDS SUMMARY | 2025-02-19 15:19 | XMS_ITS | Continuity of Care Document ---
Author Organization [facility]ufino [facility], [facility] ([facility] [place]) Address [address] [place] [address] Assessment No assessment recorded. Plan of Treatment [...] Modified By Organization Details Last Modified Time 01/25/2025 [id number] Bakers cyst behind right knee, staff reassured. Will schedule tramadol tid. [email or web address] Not available 01/25/2025 15:54:21 Reason for Referral None Reported. 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 4 18:33:11 [place] l hyperten anne-marie 00280831 Active [address], [address] , [facility] 4 18:38:10 Chronic kidney disease stage 3 751733732 Active 2023 David Eng [address], [address] , [facility] 4 18:38:12 Inapprop riate sexual behavior 846210074 Active 2023 LUCIE dinh [facility] 4 14:04:33 Edema of left lower leg 821851468 [facility] 5 15:38:20 Need for personal care assistan 46359402768 318754 Active 2024 [facility] 5 11:34:55 Problem Notes None recorded. [...] Available furosemid e daily 07/09 completed DM/MG; 76474; Recorded 09/30/19 22 2:25PM by Dasha Whitehead (Authori zed through Goldy Seugra DO), Annotati on/Adden dum; Mail Order Quantity : 90 Tablet; Refill Quantity : 30; Tablet; Not Available Not Available Not Available carvedilo l twice daily 07/09 completed DM/MG; 51307; Recorded 09/30/19 22 2:25PM by Dasha Whitehead [...] Levothyro xine Sodium daily 07/09 completed DM/MG; 77267; Recorded 09/30/19 22 2:29PM by Dasha Whitehead (Authori zed through David Eng DO), Annotati on/Adden dum; Mail Order Quantity : 90 Tablet; Refill Quantity : 30; Tablet; Not Available Not Available Not Available donepezil daily 07/09 completed DM/Mg; 58332; Recorded 12/19/19 12:19PM by Dasha Whitehead (Authori katie through [employer] , ), Refill Request; Mail Order Quantity : 90 Tablet; Refill Quantity : 30; Tablet; Not Available Not Available Not Available Nifedipin e ER daily 07/09 completed DM/MG; 40535; Recorded 09/30/19 2:30PM by Dasha Whitehead (Authori katie through [employer] [email or web address]), Annotati on/Adden dum; Mail Order Quantity : [...] Organization Details Last Updated DateTime 152.4 cm 31.6 kg/m2 21761.9 6 g 88 /min 22 /min 97.7 [degF] 94 % 158/77 mm[Hg] LUCIE JAGDISH [facility] 15:51:48 Social History None recorded. Functional Status Question Answer Note LastModified by Organizat ion Details LastModified Time Do you use any illicit or recreational drugs? No Information not available 06/06/2022 Do you or have you ever used any other forms of tobacco or nicotine? No [email or web address] Information not available 06/06/2022 What is your level of alcohol consumption? None [email or web address] Information not available 06/06/2022 Mental Status None recorded. Family History Nothing Reported. Medical History No medical history recorded. Gynecological HistoryNo gynecological history recorded. Obstetrics History GPAL:G 0 P 0 0 0 0 Immunizations Vaccine Type Date Status Note Provider Nam e and Address Organization Details Recorded Time Pneumococcal conjugate PCV 13 6 completed Not Available [facility] 02/01/2025 14:30:02 COVID-19, mRNA, LNP-S, PF, 50 mcg/0.5 mL 5 completed Not Available [facility] 02/01/2025 14:30:02 Tdap 6 completed Not Available [facility] 09/22/2022 02:33:24 Past Encounters Encounter ID Performer Location Encounter Start Date Encounter Closed Date Diagnosis/Indication Diagnosis SNOMED-CT Code Diagnosis ICD10 Code Diagnosis IMO Codes Diagnosis Note [id number] Goldy DO Imelda [facility] ([facility] [place]) [address] [place] [address] 12/28/2024 12:42:57 12/31/2024 15:53:10 Hypothyroidism 59960445 E03.9 Severe dementia 81652729 01 61923 F03.C2 Chronic ki dney disease stage 3 690659648 N18.30 Essential hypertension 81470325 I10 Kidney disease 35166799 N28.9 [id number] Goldy Segura DO [facility] ([facility] [place]) [address] [place] [address] 01/25/2025 13:53:36 01/27/2025 12:28:59 Chronic kidney disease stage 3 531837243 N18.30 Severe dementia 44915937 01 84034 F03.C2 Synovial c yst of right knee 5614867529 03362 M71.21 14762684 Health Concerns Section Related Observation LastModified by Organization Detai ls LastModified Time None Recorded Concern Status LastModified by Organization Details LastModified Time None Recorded Payers Encounter Date Sequence Insurance Name Policy Number Policy Sainz Covered Member ID Sainz Member ID Guarantor Name 01/25/2025 1 [employer] (MEDICARE REPLACEMENT/ ADVANTAGE - PPO) Lanny Zamudio [id number] Lanny Zamudio 01/25/2025 2 [place] Lanny Zamudio [id number] Lanny Zamudio Notes Date Note Type Note Provider Name and Address Organization Details Recorded Time 01/25/2025 text/html CoughReported by PatientHPIFor quality, patient reportsdry. For severity, patient reportsmild. For duration, patient reportsacute (<3 weeks).ROS as noted in the HPI no complaints per staff or patient. Goldy Segura DO [address] [place] [address], [address], [facility], Kirti 01/25/2025 16:16:06 OBGyn Episode No OBEpisode recorded.
--- NOTE | 2025-02-19 15:35 | XRR_ITS ---
PROCEDURE INFORMATION: Exam: XR Chest Exam date and time: 02/19/2025 3:49 PM Age: 84 years old Clinical indication: Dyspnea; Additional info: SOB TECHNIQUE: Imaging protocol: Radiologic exam of the chest. Views: 1 view. COMPARISON: CR (CHEST, ) 02/14/2025 9:47 PM FINDINGS: Lungs: Compressive atelectasis of the lung bases versus infiltration. Stable small nodule in the right midlung. Pleural spaces: Small bilateral pleural effusions. No pneumothorax. Heart/Mediastinum: Unremarkable. No cardiomegaly. Bones/joints: Unremarkable. XR/XR chest 1V portable 09382 IMPRESSION: As above.
--- NOTE | 2025-02-19 15:35 | ECG_ITS ---
[facility]: 2025-02[facility]19 Pat Name: Lanny Zamudio Department: Room: Gender: Female Hoop [employer]ender Tank: : 1940 Requested By: Geovanny Mahoney Order Number: [id number] Reading MD: ASHLEIGH LEE Measurements Intervals [place] Rate: 86 P: 79 MN: 209 QRS: 43 QRSD: 126 T: 135 QT: 395 QTc: 474 Interpretive Statements SINUS RHYTHM PROBABLE LATERAL MYOCARDIAL INFARCTION , OF INDETERMINATE AGE [35 ms Q WAVE IN I/aVL/V5/V6] Compared to ECG 07/28/2023 18:05:54 Myocardial infarct finding now present Sinus bradycardia no longer present First degree AV block no longer present Left-axis deviation no longer present Left bundle-branch block no longer present Electronically Signed On 02-21-2025 23:03:41 TRANSLATOR INTERPRETER by ASHLEIGH LEE [email or web address]
[2025-02-19 15:40] LABS: Hematocrit 45.1 % (36-47); Hemoglobin 13.50 g/dL (11.27-16.99); Mean Corpuscular HGB Conc 29.9 g/dL (30-55); Mean Corpuscular Hemoglobin 24.1 pg (27-33); Mean Corpuscular Volume 80.4 fl (85-98); Nucleated Red Blood Cells % 0 %; Platelet Count 124 10^3/cmm (157-399); Red Blood Count 5.61 10^6/uL (3.85-5.65); White Blood Count 10.49 10^3/uL (3.29-11.43)
--- NOTE | 2025-02-19 15:58 | W.ED.NAVMDI ---
HPI - Nausea/Vomiting/Diarrhea General: Chief complaint: Nausea/Vomiting/Diarrhea Stated complaint: N/V Source: family, EMS and old records reviewed Mode of arrival: EMS Limitations: altered mental status (Dementia) History of Present Illness: Patient is an 84-year-old female who presents to the emergency department from [facility] due to nausea vomiting today. The patient was seen in the emergency department on 02/14 diagnosed with urinary tract infection and has been on cephalexin. Patient reportedly has been unable to keep down the antibiotics, she does have a history of dementia and there is reportedly no stray from baseline. No reports of fevers or chills. Patient cannot provide me any reliable history or review of system secondary to her mentation. She is complaining of diffuse abdominal pain. She is not requiring oxygen at this time, not tachycardic and blood pressure normal. Waiting on family's arrival to provide more history. MD elicited complaint: nausea and vomiting Onset (ago): hour(s) Context: other (Recent diagnosis of UTI, has not been able to keep down Keflex) Related Data Previous Rx's ?Medication ?Instructions ?Recorded cephalexin 500 mg capsule 500 mg PO Q6H #20 caps 02/15/25 Allergies Allergy/AdvReac Type Severity Reaction Status Date / Time No Known Allergies Allergy Verified 03/27/24 16:31 Review of Systems General: Reports: ROS unobtainable due to mental status Physical Exam Const: COMMON NORMALS: no limitations and alert GENERAL APPEARANCE: well developed ORIENTATION/CONSCIOUSNESS: Yes awake OTHER: At baseline mentation, alert to self. Nontoxic-appearing, but disheveled HENMT: COMMON NORMALS: normocephalic, atraumatic and hearing grossly normal bilaterally HEAD & SCALP: normocephalic and atraumatic Neck/C-Spine: COMMON NORMALS: full ROM, supple and no JVD Resp: COMMON NORMALS: normal respiratory effort, No retractions, No use of accessory muscles and clear to auscultation bilaterally AUSCULTATION: clear to auscultation bilaterally Cardio: COMMON NORMALS: no JVD, regular rate, regular rhythm, No clicks present (Cardio), No murmurs present (Cardio) and No rub (Cardio) RATE: regular rate RHYTHM: regular rhythm GI: COMMON NORMALS: Normal to inspection, nondistended, normoactive bowel sounds present and Soft to palpation AUSCULTATION: Yes normoactive bowel sounds PALPATION: Yes Soft to palpation and Yes Tenderness to palpation present (GI) (Diffusely tender to palpation) RECTAL EXAM: deferred Extremity: COMMON NORMALS: full ROM and capillary refill normal NARRATIVE EXTREMITY EXAM: Peripheral pitting edema bilaterally Neuro: COMMON NORMALS: moves all extremities, no focal motor deficits and no sensory deficits noted SENSORIUM/ORIENTATION: Yes alert Skin: NARRATIVE SKIN EXAM: Bruising right upper extremity Course Vital Signs: Vital signs: Vital Signs Temperature 98.1 F 02/19/25 15:16 Pulse Rate 87 02/19/25 16:30 Respiratory Rate 17 02/19/25 15:16 Blood Pressure 163/105 02/19/25 16:30 Pulse Oximetry 92 02/19/25 16:30 Oxygen Delivery Me thod Room Air 02/19/25 16:30 MDM - Nausea/Vomiting/Diarrhea Medical Decision Making This is an 84-year-old female from nursing facility presenting with nausea vomiting and inability to tolerate oral intake. She was recently treated for UTI; however, repeat catheterized urinalysis today shows resolution of infection, making persistent UTI unlikely as etiology of her current presentation. Workup is notable for markedly elevated BNP of about 60,000, bilateral moderate to large pleural effusions on CT abdomen/pelvis, peripheral and upper extremity edema and acute on chronic renal dysfunction, all concerning for previously undiagnosed acute decompensated heart failure. Troponin was elevated but downtrending 161-146 without ischemic symptoms or EKG changes, consistent with myocardial injury or demand ischemia rather than acute coronary syndrome. Platelets are mildly decreased at 124 with associated bruising to right upper extremity; coags have been ordered to further evaluate, though no active bleeding is noted. Given her advanced age, dementia, renal disease, significant volume overload, and inability to tolerate p.o. intake, she is not appropriate for outpatient management. She was given low-dose IV furosemide 40 mg with electrolytes monitored and will be admitted to hospital medicine for continued diuresis, renal function surveillance, and echocardiographic evaluation to assess cardiac function and guide further management. Discussed plan with family in the room who agree and all other questions and concerns addressed at this time. I discussed with hospitalist, Dr. Gonzalez, who agrees to admission to [facility]. Dr. Escudero had been briefed on this patient periodically throughout ED stay and will place admit orders. Lab Data 02/19/25 15:33 12/26/25 15:33 Radiology Impressions Chest X-Ray 02/19/25 15:35 IMPRESSION: As above. Abdomen/Pelvis CT 02/19/25 16:00 IMPRESSION: 1. There is urinary bladder wall thickening with perivesicular stranding as well as foci of air that appears to be within the wall anteriorly. Correlate for recent instrumentation versus emphysematous cystitis. 2. Moderate to large bilateral pleural effusions with adjacent compressive atelectasis. 3. Small amount of pelvic free fluid. Laboratory Results WBC 10.49 10^3/uL (3.29-11.43) 02/19/25 15: RBC 5.61 10^6/uL (3.85-5.65) 02/19/25 15:33 Hgb 13.50 g/dL (11.27-16.99) 02/19/25 15:33 Hct 45.1 % (36-47) 02/19/25 15:33 MCV 80.4 fl (85-98) L 02/19/25 15:33 MCH 24.1 pg (27-33) L 02/19/25 15:33 MCHC 29.9 g/dL (30-55) L 02/19/25 15:33 RDW 16.2 % (12.1-15.1) H 02/19/25 15:33 Plt Count 124 10^3/cmm (157-399) L 02/19/25 15:33 MPV 11.3 fL (7.4-10.4) H 02/19/25 15:33 Neut % (Auto) 76.5 % 02/19/25 15:33 Lymph % (Auto) 12.4 % 02/19/25 15:33 [place] % (Auto) 9.3 % 02/19/25 15:33 Eos % (Auto) 1.0 % 02/19/25 15:33 Baso % (Auto) 0.3 % 02/19/25 15:33 Neut # (Auto) 8.03 10^3/uL (1.8-7.7) H 02/19/25 15:33 Lymph # (Auto) 1.3 10^3/uL (0.8-4.8) 02/19/25 15:33 [place] # (Auto) 1.0 10^3/uL (0.2-0.9) H 02/19/25 15:33 Eos # (Auto) 0.1 10^3/uL (0.0-0.8) 02/19/25 15:33 Baso # (Auto) 0.0 10^3/uL (0.0-0.1) 02/19/25 15:33 Nucleated RBC % (auto) 0 % 02/19/25 15:33 Nucleated RBCs # 0.0 /100WBC 02/19/25 15:33 Sodium 139 mmol/L (136-145) 02/19/25 15:33 Potassium 4.4 mmol/L (3.5-5.1) 02/19/25 15:33 Chloride 101 mmol/L (98-107) 02/19/25 15:33 Carbon Dioxide 25 mmol/L (22-29) 02/19/25 15:33 Anion Gap 17.4 (5-19) 02/19/25 15:33 BUN 55 mg/dL (8-23) H 02/19/25 15:33 Creatinine 2.4 mg/dL (0.5-0.9) H 02/19/25 15:33 GFR Calculation Not Reportable 02/19/25 15:33 Glucose 143 mg/dL (65-115) H 02/19/25 15:33 Calculated Osmolality 306 mOsm/kg (285-295) H 02/19/25 15:33 Lactic Acid 1.7 mmol/L (0.5-2.2) 02/19/25 15:33 Calcium 9.3 mg/dL (8.5-10.5) 02/19/25 15:33 Total Bilirubin 0.8 mg/dL (0.15-1.2) 02/19/25 15:33 AST 117 U/L (0-32) H 02/19/25 15:33 ALT 257 U/L (0-33) H 02/19/25 15:33 Alkaline Phosphatase 389 U/L (35-105) H 02/19/25 15:33 Troponin T Baseline 161 ng/L (0-10) H* 02/19/25 15:33 Troponin T 60 Minute 146.0 ng/L (0-10) H 02/19/25 16:40 Delta Troponin T -15.0 ABS# (0-10) L 02/19/25 16:40 NT-Pro-B Natriuret Pep 54380 pg/mL (0-450) H 02/19/25 15:33 Total Protein 6.6 g/dL (6.6-8.7) 02/19/25 15:33 Albumin 3.6 g/dL (3.5-5.2) 02/19/25 15: Globulin 3.0 g/dL (1.3-4.6) 02/19/25 15:33 Lipase 50 U/L (13-60) 02/19/25 15:33 Urine Color Dark yellow (Yellow) A 02/19/25 17:01 Urine Appearance Clear (CLEAR) 02/19/25 17:01 Urine pH 5.0 (5-7) 02/19/25 17:01 Ur Specific [place] 1.020 (1.005-1.030) 02/19/25 17:01 Urine Protein 3+ (Negative) A 02/19/25 17:01 Urine Glucose (UA) Negative (Normal) 02/19/25 17:01 Urine Ketones Negative (Negative) 02/19/25 17:01 Urine Blood 2+ (Negative) A 02/19/25 17:01 Urine Nitrate Negative (Negative) 02/19/25 17:01 Urine Bilirubin Negative (Negative) 02/19/25 17:01 Urine Urobilinogen 1.0 mg/dL (Negative) 02/19/25 17:01 Ur Leukocyte Esterase Negative (Negative) 02/19/25 17:01 Urine RBC 0-2 /hpf (0-2) 02/19/25 17:01 Urine WBC 0-5 /hpf (0-5) 02/19/25 17:01 Ur Squamous Epith Cells 0-5 /hpf (0-5) 02/19/25 17:01 Amorphous Sediment 1+ /hpf 02/19/25 17:01 Urine Bacteria None seen /hpf (NONE) 02/19/25 17:01 Hyaline Casts 11.97 /lpf 02/19/25 17:01 All radiology interpretation(s) finalized by discharge Discharge Plan Discharge Patient Disposition: Admitted As Inpatient Clinical Impression: CHF (congestive heart failure) Condition: Stable Coding Level of Care Code ED Wire Temperer for Jacobo Ochoa
[2025-02-19 16:00] VITALS: BP 150/106; PULSE 88; O2SAT 90
[2025-02-19 16:00] LABS: Lactic Sepsis W/Reflex 1.7 mmol/L (0.5-2.2); Troponin(5th) Baseline 161 ng/L (0-10)
--- NOTE | 2025-02-19 16:00 | CTR_ITS ---
PROCEDURE INFORMATION: Exam: CT Abdomen And Pelvis Without Contrast Exam date and time: 02/19/2025 4:21 PM Age: 84 years old Clinical indication: Abdominal pain; Generalized; Additional info: UTI, abd pain getting worse, n/v TECHNIQUE: Imaging protocol: Computed tomography of the abdomen and pelvis without contrast. Radiation optimization: All CT scans at this facility use at least one of these dose optimization techniques: automated exposure control; mA and/or kV adjustment per patient size (includes targeted exams where dose is matched to clinical indication); or iterative reconstruction. COMPARISON: CR XR chest 1V portable [id number] 02/19/2025 3:49 PM RADIATION DOSE METRICS: Total DLP (mGy-cm): 847.73 FINDINGS: Pleural spaces: Moderate to large bilateral pleural effusion with adjacent compressive atelectasis. Heart: Cardiomegaly. Severe atherosclerosis. Liver: Normal. No mass. Gallbladder and biliary ducts: The gallbladder is surgically absent. Pancreas: Normal. No ductal dilation. Spleen: Normal. No splenomegaly. Adrenal glands: Normal. No mass. Kidneys and ureters: Normal. No hydronephrosis. Stomach and bowel: Colonic diverticulosis. No bowel obstruction. Appendix: No evidence of appendicitis. Intraperitoneal space: Small amount of free fluid in the pelvis. Vasculature: See Heart finding. Lymph nodes: Unremarkable. No enlarged lymph nodes. Urinary bladder: There is urinary bladder wall thickening with perivesicular stranding as well as foci of air that appears to be within the wall anteriorly. Reproductive: Unremarkable as visualized. Bones/joints: Unremarkable. No acute fracture. Soft tissues: Small fat containing umbilical hernia. CT/CT abdomen pelvis wo con [id number] IMPRESSION: 1. There is urinary bladder wall thickening with perivesicular stranding as well as foci of air that appears to be within the wall anteriorly. Correlate for recent instrumentation versus emphysematous cystitis. 2. Moderate to large bilateral pleural effusions with adjacent compressive atelectasis. 3. Small amount of pelvic free fluid.
[2025-02-19 16:07] LABS: Alanine Aminotransferase 257 U/L (0-33); Albumin Level 3.6 g/dL (3.5-5.2); Alkaline Phosphatase 389 U/L (35-105); Anion Gap 17.4 (5-19); Aspartate Amino Transferase 117 U/L (0-32); Blood Urea Nitrogen 55 mg/dL (8-23); Calcium 9.3 mg/dL (8.5-10.5); Carbon Dioxide 25 mmol/L (22-29); Chloride 101 mmol/L (98-107); Globulin 3.0 g/dL (1.3-4.6); Glucose 143 mg/dL (65-115); Lipase 50 U/L (13-60); Osmolality Calculated 306 mOsm/kg (285-295); Potassium 4.4 mmol/L (3.5-5.1); Sodium 139 mmol/L (136-145); Total Protein 6.6 g/dL (6.6-8.7)
[2025-02-19 16:30] VITALS: BP 163/105; PULSE 87; O2SAT 92
--- NOTE | 2025-02-19 16:35 | ECG_ITS ---
[employer] Test Date: 2025-02-19 Pat Name: Lanny Zamudio Department: Room: Gender: Female Shape Carver: : 1940 Requested By: Geovanny Mahoney Order Number: [id number] Jania MD: ASHLEIGH LEE Measurements Intervals [place] Rate: 91 P: 0 SD: 0 QRS: 50 QRSD: 119 T: 90 QT: 366 QTc: 450 Interpretive Statements ATRIAL FIBRILLATION LOW QRS VOLTAGE IN EXTREMITY LEADS [QRS DEFLECTION < 0.5 mV IN LIMB LEADS] MODERATE INTRAVENTRICULAR CONDUCTION DELAY [105+ ms QRS DURATION, 80+ ms Q/S IN V1/V2, NO Q AND 60+ ms R IN I/aVL/V5/V6] MINIMAL ST DEPRESSION [0.025+ mV ST DEPRESSION] Compared to ECG 02/19/2025 15:47:06 Low QRS voltage now present Intraventricular conduction delay now present ST (T wave) deviation now present Sinus rhythm no longer present Myocardial infarct finding no longer present Electronically Signed On 02-21-2025 23:22:05 HEAD BANQUET WAITER/WAITRESS by ASHLEIGH LEE [id number] [id number]
[2025-02-19 17:10] LABS: Glucose Urine UA Negative (Normal); Nitrate Urine Negative (Negative); Specific Gravity, Urine 1.020 (1.005-1.030)
[2025-02-19 17:14] LABS: Add Urine Microscopic? YES
[2025-02-19 17:23] LABS: UA Slide Review UA Slide Review Perf
[2025-02-19 17:30] VITALS: BP 159/94; PULSE 85; O2SAT 90
--- NOTE | 2025-02-19 17:38 | USCV_ITS ---
Lanny Zamudio Age: 84 Gender: F : 1940 Exam Date: 02/19/2025 18:22 Ordering Phys: Geovanny Nuñez Technologist: [email or web address] Exam Location: [facility] [place] Indication: edema, elevated bnp/trop BP: 153 / 97 HR: 86 Rhythm: Sinus Technical Quality: Adequate MEASUREMENTS (Male / Female) Normal Values 2D ECHO LV Diastolic Diameter PLAX 5.6 cm 4.2 - 5.9 / 3.9 - 5.3 cm IVS Diastolic Thickness 0.7 cm 0.6 - 1.0 / 0.6 - 0.9 cm IVS Systolic Thickness 0.8 cm LVPW Diastolic Thickness 0.7 cm 0.6 - 1.0 / 0.6 - 0.9 cm LVPW Systolic Thickness 0.8 cm LVOT Diameter 2.0 cm LV Ejection Fraction 2D Teich 21.0 % LV Ejection Fraction MOD 4C 19.2 % LV Ejection Fraction MOD 2C 22.4 % LV Ejection Fraction 2C AL 22.3 % LA Diameter 4.2 cm RA Systolic Volume 4C AL 50.1 ml RA Systolic Volume 4C MOD 49.7 ml LA Sys Volume AL 76.2 cm cubed LA Sys Volume Index AL 42.8 cm cubed/m squared Aorta at Sinotubular Diameter 1.7 cm IVC Diameter 2.0 cm M-MODE LA Ao Ratio MM 2.5 AV Cusp Separation MM 1.4 cm DOPPLER AV Peak Velocity 163.3 cm/s LVOT Peak Velocity 69.0 cm/s AV Area Cont Eq vti 1.2 cm squared AV Area Cont Eq pk 1.3 cm squared MV Area PHT 8.0 cm squared Mitral E to A Ratio 1.0 TV Peak Velocity 300.0 cm/s TR Peak Velocity 309.0 cm/s TR Peak Gradient 38.2 mmHg TR Mean Velocity 239.0 cm/s TR Mean Gradient 24.8 mmHg TR Velocity Time Integral 100.0 cm PV Peak Velocity 61.0 cm/s RV Ejection Time 0.3 s FINDINGS Left Ventricle Left ventricle is mildly dilated. LV systolic function is severely reduced with EF of 20 to 25%. Severe global hypokinesis. Right Ventricle Grossly RV function is normal Right Atrium Normal in size Left Atrium Dilated IA Septum Grossly normal Mitral Valve Moderate mitral annular calcification. Mild mitral regurgitation Aortic Valve Aortic valve is thickened and calcified. No significant stenosis. Tricuspid Valve Mild tricuspid regurgitation. RVSP is 35-40 mmHg. This is consistent with mild pulmonary hypertension Pulmonic Valve Mild pulmonic regurgitation Pericardium Normal Aorta Normal in size IVC Appears to be normal CONCLUSIONS Left ventricle is mildly dilated. LV systolic function is severely reduced with EF of 20-25% Left atrial dilation Mild mitral regurgitation Mild tricuspid regurgitation. Mild pulmonary hypertension Mild pulmonic regurgitation Porfirio Andrade MD (Electronically Signed) Final Date: 20 February 2025 13:26 S
[2025-02-19] MEDS: cefTRIAXone 1,000 mg SDV 1000 MG IVP (17:52)
[2025-02-19] MEDS: FUROsemide 10 mg/mL SDV 4mL 40 MG IVP (17:52)
[2025-02-19 18:07] LABS: INR 1.15 (0.8-1.2); Prothrombin Time 15.50 SECONDS (12.1-14.9)
[2025-02-19 18:08] LABS: Partial Thromboplastin Time 35.7 SECONDS (23.9-36.7)
[2025-02-19 18:30] VITALS: BP 159/108; PULSE 87; O2SAT 91
[2025-02-19 18:48] VITALS: BP 159/108; PULSE 88; O2SAT 91
[2025-02-19 19:13] VITALS: BMI 27.3
--- NOTE | 2025-02-19 21:35 | ECG_ITS ---
[employer] Test Date: 2025-02-19 Pat Name: Lanny Zamudio Department: Room: 277 Gender: Female Strategy Analyst: : 1940 Requested By: Geovanny Mahoney Order Number: [id number] Reading MD: ASHLEIGH LEE Measurements Intervals [place] Rate: 91 P: 81 [place]: 207 QRS: 53 QRSD: 123 T: 91 QT: 381 QTc: 471 Interpretive Statements SINUS RHYTHM PROBABLE LATERAL MYOCARDIAL INFARCTION , OF INDETERMINATE AGE [35 ms Q WAVE IN I/aVL/V5/V6] Compared to ECG 02/19/2025 17:01:28 Myocardial infarct finding now present Atrial fibrillation no longer present Intraventricular conduction delay no longer present ST (T wave) deviation no longer present Electronically Signed On 02-21-2025 23:21:18 EVALUATION ADVISOR by ASHLEIGH LEE [id number]
[2025-02-19 22:23] LABS: Troponin 5 6HR Delta -23.6 ng/L (0-12)
[2025-02-19 22:24] LABS: Troponin 5 6HR 137.4 ng/L (0-10)
--- NOTE | 2025-02-19 23:24 | PM.HP ---
Providers/Chief Complaint Admitting Physician: Rishi Gonzalez MD Primary Care Provider: Goldy Segura DO Chief Complaint: N/V History of Present Illness Patient is an 84-year-old female who presents to the emergency department from [facility] due to nausea vomiting today. The patient was seen in the emergency department on 02/14 diagnosed with urinary tract infection and has been on cephalexin. Patient reportedly has been unable to keep down the antibiotics, she does have a history of dementia and there is reportedly no stray from baseline. No reports of fevers or chills. Patient cannot provide me any reliable history or review of system secondary to her mentation. She is complaining of diffuse abdominal pain. She is not requiring oxygen at this time, not tachycardic and blood pressure normal. UA was negative in the ER, she had markedly elevated BNP of 60,000, with echocardiogram showing severe LV hypokinesis with a EF of 20%. Troponin was mildly elevated but downtrending from previous admission, no EKG changes. Patient does not complain of chest pain. Patient is baseline serum creatinine of 2.4-2.3, she received 1 dose of IV furosemide 40 mg once. I saw the patient, she had no complaints, Medications/Allergies Home Medications ?Medication ?Instructions ?Recorded ?Confirmed ?Last Taken ?Type acetaminophen 325 mg tablet 650 mg PO Q6H PRN pain/increased 02/20/25 02/20/25 02/15/25 History temp benzonatate 100 mg capsule 100 mg PO BID PRN Cough 02/20/25 02/20/25 01/16/25 History bisacodyl 10 mg rectal suppository 10 mg NC DAILY PRN Constipation 02/20/25 02/20/25 Unknown History bisacodyl 5 mg tablet,delayed 10 mg PO DAILY PRN Constipation 02/20/25 02/20/25 Unknown History release (Laxative (bisacodyl)) donepezil 10 mg disintegrating 10 mg PO BEDTIME 02/20/25 02/20/25 02/18/25 History tablet furosemide 20 mg tablet 20 mg PO .QOD 02/20/25 02/20/25 02/19/25 History hydrocodone 5 mg-acetaminophen 325 1 tab PO TID 02/20/25 02/20/25 02/19/25 History mg tablet levothyroxine 100 mcg tablet 100 mcg PO DAILY 02/20/25 02/20/25 02/19/25 History lisinopril 20 mg tablet 20 mg PO DAILY 02/20/25 02/20/25 02/19/25 History loratadine 10 mg tablet (Claritin) 10 mg PO DAILY PRN allergies 02/20/25 02/20/25 12/09/24 History magnesium hydroxide 400 mg/5 mL 400 mg PO DAILY PRN Constipation 02/20/25 02/20/25 Unknown History oral suspension (Milk of Magnesia) menthol 0.44 %-zinc oxide 20.6 % See Rx Instructions .Route 02/20/25 02/20/25 02/18/25 History topical ointment (Calmoseptine) .COMPLEX PRN skin rash menthol 7.6 mg lozenges (Cough 7.6 mg PO Q2H PRN cough/sore throat 02/20/25 02/20/25 01/18/25 History Drops) nitrofurantoin 100 mg PO BID 02/20/25 02/20/25 02/19/25 History monohydrate/macrocrystals 100 mg capsule polyvinyl alcohol-povidone (PF) 1 drp ophthalmic (eye) Q2H PRN Dry 02/20/25 02/20/25 10/07/24 History 1.4 %-0.6 % eye drops in a Eyes dropperette (Refresh Classic (PF)) sertraline 100 mg tablet 150 mg PO BEDTIME 02/20/25 02/20/25 02/18/25 History sodium phosphates 19 gram-7 118 ml NC DAILY PRN Constipation 02/20/25 02/20/25 Unknown History gram/118 mL enema (Fleet Enema) Allergies Allergy/AdvReac Type Severity Reaction Status Date / Time No Known Allergies Allergy Verified 03/27/24 16:31 Vitals/I&O/Wt Last Vital Signs Temp 98.1 F 02/19/25 15:16 Pulse 88 02/19/25 18:48 Resp 17 02/19/25 15:16 BP 159/108 02/19/25 18:48 Pulse Ox 91 02/19/25 18:48 O2 Del Method Room Air 02/19/25 19:13 Weight last 48 hrs Weight 69.967 kg Weight 69.967 kg Physical Exam Const: COMMON NORMALS: patient oriented x3 and alert GENERAL APPEARANCE: cooperative ORIENTATION/CONSCIOUSNESS: Yes awake HENMT: COMMON NORMALS: oropharynx normal Neck/C-Spine: COMMON NORMALS: no JVD Resp: COMMON NORMALS: normal respiratory effort and clear to auscultation bilaterally AUSCULTATION: clear to auscultation bilaterally Cardio: COMMON NORMALS: no JVD, regular rhythm, S1 normal heart sound present, S2 normal heart sound present and No murmurs present (Cardio) RHYTHM: regular rhythm HEART SOUNDS: S1 normal heart sound present and S2 normal heart sound present GI: COMMON NORMALS: Normal to inspection, nondistended, normoactive bowel sounds present, Soft to palpation and non-tender PALPATION: Yes Soft to palpation Extremity: COMMON NORMALS: no joint enlargement and no pedal edema Neuro: COMMON NORMALS: patient oriented x3 and moves all extremities SENSORIUM/ORIENTATION: Yes alert Skin: COMMON NORMALS: no rashes or lesions noted GENERAL SKIN EXAM: no rashes or lesions noted Data 02/21/25 04:34 02/21/25 04:34 Micro: Microbiology 02/19/25 16:41 Blood Culture - Preliminary Blood SPECIMEN COLLECTED 02/19/25 16:40 Blood Culture - Preliminary Blood SPECIMEN COLLECTED A&P Assessment and plan 1. Abdominal pain: Plan: 84-year-old female with cognitive impairment/dementia, recently treated for UTI. Seen in the ER for continuous nausea and vomiting, mild abdominal pain. Presented to MedSurg unit, stable. Vital stable. She does have a low EF, has nonischemic cardiomyopathy and heart failure with reduced ejection fraction. CT of the abdomen pelvis came back, shows some bladder wall thickening, possible interstitial cystitis, but UA was negative. Patient be admitted for monitoring, she does appear hypovolemic so I will infuse her with some fluids. Dry mucous membranes, skin tenting. Diagnoses: Failure with reduced ejection fraction, nonischemic cardiomyopathy Hypovolemia with demand ischemia, overdiuresis? Acute UTI, status post treatment with antibiotics. Interstitial cystitis seen on CT, UA negative. Observe. Abdominal pain?urinary source? Likely postinfectious urgency/dysuria. Observe. No acute findings on CT Bilateral pleural effusions?with compressive atelectasis, possibly chronic. Patient has no complaints of shortness of breath. Obtain x-ray if symptoms develop. Plan: Judicial IV fluid resuscitation for hypovolemia If patient becomes tachypneic or short of breath, will obtain chest x-ray. Atelectasis seems to be chronic based on patient's positioning and stable chronic congestive heart failure. Will continue home medications: Levothyroxine for primary hypothyroidism, 100 mcg p.o. daily Cognitive impairment/dementia?sertraline 150 mg p.o. at bedtime, donepezil 10 mg p.o. 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 Patient does not appear hypervolemic, no ankle swelling. DVT prophylaxis: Subcu Lovenox GI prophylaxis: Famotidine 20 mg p.o. twice daily PDMP PDMP Reviewed: Not Reviewed Attestations Medical Necessity Statement*: Will provide supportive care for patient, monitor respiratory status. Plan will be to discharge in 1-2 midnights to residential facility. Diagnoses Abdominal pain R10.9
[2025-02-20 06:00] VITALS: BMI 28.0
[2025-02-20 08:05] VITALS: BP 158/91; PULSE 90; RESP 14; TEMP 37; O2SAT 90
[2025-02-20 12:00] VITALS: BP 160/89; PULSE 97; RESP 15; TEMP 37; O2SAT 91
[2025-02-20] MEDS: HYDROcodone-acetaminophen 5-325 mg Tablet 1 TAB PO ×2 (12:00→20:34)
--- NOTE | 2025-02-20 14:29 | P.PN_ITS ---
Subjective 2 Subjective: Patient in bed, eating, being seen by speech therapy. No aspirations, no complaints. No events overnight, resting comfortably. Vitals/I&O/Wt Last Vital Signs Temp 97.9 F 02/21/25 11:33 Pulse 104 H 02/21/25 11:33 Resp 18 02/21/25 11:33 BP 138/72 02/21/25 08:05 Pulse Ox 90 02/21/25 11:33 O2 Del Method Room Air 02/21/25 04:00 02/20/25 02/21/25 02/21/25 22:59 06:59 14:59 Intake Total 1080 / 1080 0 / 1080 Balance 1080 / 1080 0 / 1080 Weight last 48 hrs Weight 71.849 kg Weight 71.668 kg Weight 69.967 kg Weight 69.967 kg Physical Exam 2 Const: COMMON NORMALS: patient oriented x3 and alert GENERAL APPEARANCE: c ooperative ORIENTATION/CONSCIOUSNESS: Yes awake HENMT: COMMON NORMALS: oropharynx normal Neck/C-Spine: COMMON NORMALS: no JVD Resp: COMMON NORMALS: normal respiratory effort and clear to auscultation bilaterally AUSCULTATION: clear to auscultation bilaterally Cardio: COMMON NORMALS: no JVD, regular rhythm, S1 normal heart sound present, S2 normal heart sound present and No murmurs present (Cardio) RHYTHM: regular rhythm HEART SOUNDS: S1 normal heart sound present and S2 normal heart sound present GI: COMMON NORMALS: Normal to inspection, nondistended, normoactive bowel sounds present, Soft to palpation and non-tender PALPATION: Yes Soft to palpation Extremity: COMMON NORMALS: no joint enlargement and no pedal edema Neuro: COMMON NORMALS: patient oriented x3 and moves all extremities S ENSORIUM/ORIENTATION: Yes alert Skin: COMMON NORMALS: no rashes or lesions noted GENERAL SKIN EXAM: no rashes or lesions noted Data 02/21/25 04:34 02/21/25 04:34 Micro: Microbiology 02/19/25 16:41 Blood Culture - Preliminary Blood NEGATIVE TO DATE 02/19/25 16:40 Blood Culture - Preliminary Blood NEGATIVE TO DATE A&P Assessment and plan 1. Abdominal pain: Plan: 84-year-old female with cognitive impairment/dementia, recently treated for UTI. Seen in the ER for continuous nausea and vomiting, mild abdominal pain. Presented to MedSurg unit, stable. Vital stable. She does have a low EF, has nonischemic cardiomyopathy and heart failure with reduced ejection fraction. CT of the abdomen pelvis came back, shows some bladder wall thickening, possible interstitial cystitis, but UA was negative. Patient be admitted for monitoring, she does appear hypovolemic so I will infuse her with some fluids. Dry mucous membranes, skin tenting. Diagnoses: Failure with reduced ejection fraction, nonischemic cardiomyopathy Hypovolemia with demand ischemia, overdiuresis? Acute UTI, status post treatment with antibiotics. Interstitial cystitis seen on CT, UA negative. Observe. Abdominal pain?urinary source? Likely postinfectious urgency/dysuria. Observe. No acute findings on CT Bilateral pleural effusions?with compressive atelectasis, possibly chronic. Patient has no complaints of shortness of breath. Obtain x-ray if symptoms develop. Plan: Judicial IV fluid resuscitation for hypovolemia If patient becomes tachypneic or short of breath, will obtain chest x-ray. Atelectasis seems to be chronic based on patient's positioning and stable chronic congestive heart failure. Will continue home medications: Levothyroxine for primary hypothyroidism, 100 mcg p.o. daily Cognitive impairment/dementia?sertraline 150 mg p.o. at bedtime, donepezil 10 mg p.o. 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 Patient does not appear hypervolemic, no ankle swelling. DVT prophylaxis: Subcu Lovenox GI prophylaxis: Famotidine 20 mg p.o. twice daily PDMP PDMP Reviewed: Not Reviewed Attestations 2 Medical Necessity Statement*: Will provide supportive care for patient, monitor respiratory status. Plan will be to discharge in 1-2 midnights to group home facility. Diagnoses Abdominal pain R10.9
--- NOTE | 2025-02-20 15:20 | PC.SLP ---
CHEMISTRY SPECIALIST unable to see patient today as she was unable to awaken enough in order to interact effectively.
[2025-02-20 15:29] VITALS: PULSE 83
[2025-02-20 16:00] VITALS: BP 153/90; PULSE 86; RESP 16; TEMP 36.6; O2SAT 94
--- NOTE | 2025-02-20 16:26 | PC.PT ---
PT attempted evaluation. Nursing reports she is confused and a bit compative or noncompliant with interactions. Patient agreed to evaluation and discussed looking at her legs and her strength with some exercises and she said don't touch me and asked what we were doing. PT explained and asked for permission to touch her foot to check range of motion and after she said ok, she withdrew her leg and said don't touch. Unsure of baseline status at this time, nursing uncertain as well. PT evaluation to be attempted again at later date.
--- NOTE | 2025-02-20 17:45 | PC.NURSE ---
Patient coughing several times after taking medications and sips of water.
[2025-02-20 20:00] VITALS: BP 124/88; PULSE 97; RESP 20; TEMP 36.7; O2SAT 92
--- NOTE | 2025-02-20 20:40 | PC.NURSE ---
pt cont to have difficulty swallowing crushed pill in pudding. freq cough post swallwing med w pudding. HOB was high cantu. coont NPO ex meds.
[2025-02-20 22:00] VITALS: PULSE 97
[2025-02-21] VITALS (7 sets, daily range): BP systolic 134–158; BP diastolic 72–92; PULSE 91–104; RESP 17–21; TEMP 36.3–36.9; O2SAT 89–97; BMI 28.0
[2025-02-21 04:52] LABS: Hematocrit 42.7 % (36-47); Hemoglobin 12.60 g/dL (11.27-16.99); Mean Corpuscular HGB Conc 29.5 g/dL (30-55); Mean Corpuscular Hemoglobin 23.8 pg (27-33); Mean Corpuscular Volume 80.6 fl (85-98); Nucleated Red Blood Cells % 0.3 %; Platelet Count 135 10^3/cmm (157-399); Red Blood Count 5.30 10^6/uL (3.85-5.65); White Blood Count 10.32 10^3/uL (3.29-11.43)
[2025-02-21 05:25] LABS: Alanine Aminotransferase 150 U/L (0-33); Albumin Level 3.2 g/dL (3.5-5.2); Alkaline Phosphatase 355 U/L (35-105); Anion Gap 20.4 (5-19); Aspartate Amino Transferase 52 U/L (0-32); Blood Urea Nitrogen 64 mg/dL (8-23); Calcium 9.3 mg/dL (8.5-10.5); Carbon Dioxide 23 mmol/L (22-29); Chloride 105 mmol/L (98-107); Globulin 3.1 g/dL (1.3-4.6); Glucose 142 mg/dL (65-115); Magnesium 2.3 mg/dL (1.7-2.3); Osmolality Calculated 319 mOsm/kg (285-295); Potassium 4.4 mmol/L (3.5-5.1); Sodium 144 mmol/L (136-145); Thyroid Stimulating Hormone 3.70 uIU/mL (0.27-4.20); Total Protein 6.3 g/dL (6.6-8.7)
[2025-02-21] MEDS: HYDROcodone-acetaminophen 5-325 mg Tablet 1 TAB PO ×2 (10:44→16:10)
--- NOTE | 2025-02-21 13:54 | P.PN_ITS ---
Subjective 2 Subjective: Patient is awake, sitting up. She appears hydrated today. Fluids were running. I spoke to the family over the phone, granddaughter at bedside. Patient was holding my hand, seem to be at her baseline. Acquires some more history from the family, she had been having some small aspiration events at the [facility] facility, possibly the reason why she came in hypoxic with nasal cannula, does not require supplemental oxygen at this time. Though the IV fluids were running, since patient seemed dehydrated. Later on the nurse informed me that the patient had some shortness of breath. So IV fluids were stopped. Initiated heart failure therapy because of the echocardiogram at admission that showed the EF about 20%. This is the first time the family had heard about it. Patient has no prior cardiovascular risk factors. Vitals/I&O/Wt Last Vital Signs Temp 97.9 F 02/21/25 11:33 Pulse 104 H 02/21/25 11:33 Resp 18 02/21/25 11:33 BP 138/72 02/21/25 08:05 Pulse Ox 90 02/21/25 11:33 O2 Del Method Room Air 02/21/25 04:00 02/20/25 02/21/25 02/21/25 22:59 06:59 14:59 Intake Total 1080 / 1080 0 / 1080 Balance 1080 / 1080 0 / 1080 Weight last 48 hrs Weight 71.849 kg Weight 71.668 kg Weight 69.967 kg Weight 69.967 kg Physical Exam 2 Const: COMMON NORMALS: patient oriented x3 and alert GENERAL APPEARANCE: c ooperative ORIENTATION/CONSCIOUSNESS: Yes awake HENMT: COMMON NORMALS: oropharynx normal Neck/C-Spine: COMMON NORMALS: no JVD Resp: COMMON NORMALS: normal respiratory effort and clear to auscultation bilaterally AUSCULTATION: clear to auscultation bilaterally Cardio: COMMON NORMALS: no JVD, regular rhythm, S1 normal heart sound present, S2 normal heart sound present and No murmurs present (Cardio) RHYTHM: regular rhythm HEART SOUNDS: S1 normal heart sound present and S2 normal heart sound present GI: COMMON NORMALS: Normal to inspection, nondistended, normoactive bowel sounds present, Soft to palpation and non-tender PALPATION: Yes Soft to palpation Extremity: COMMON NORMALS: no joint enlargement and no pedal edema Neuro: COMMON NORMALS: patient oriented x3 and moves all extremities S ENSORIUM/ORIENTATION: Yes alert Skin: COMMON NORMALS: no rashes or lesions noted GENERAL SKIN EXAM: no rashes or lesions noted Data 02/21/25 04:34 02/21/25 04:34 Micro: Microbiology 02/19/25 16:41 Blood Culture - Preliminary Blood NEGATIVE TO DATE 02/19/25 16:40 Blood Culture - Preliminary Blood NEGATIVE TO DATE A&P Assessment and plan 1. Abdominal pain: Plan: 84-year-old female with cognitive impairment/dementia, recently treated for UTI. Seen in the ER for continuous nausea and vomiting, mild abdominal pain. Presented to [facility] unit, stable. Vital stable. She does have a low EF, has nonischemic cardiomyopathy and heart failure with reduced ejection fraction. CT of the abdomen pelvis came back, shows some bladder wall thickening, possible interstitial cystitis, but UA was negative. Patient is now euvolemic, discontinue IV fluids. Has more energy today. Diagnoses: Heart failure with reduced ejection fraction, nonischemic cardiomyopathy Hypovolemia with demand ischemia, now euvolemic Acute UTI, status post treatment with antibiotics. Interstitial cystitis seen on CT, UA negative. Observe. Abdominal pain?urinary source? Likely postinfectious urgency/dysuria. No acute findings on CT. No resolved. Bilateral pleural effusions?with compressive atelectasis, possibly chronic. Now having some shortness of breath. Obtain x-ray if symptoms develop. Plan: Judicial IV fluid resuscitation for hypovolemia If patient becomes tachypneic or short of breath, will obtain chest x-ray. Atelectasis seems to be chronic based on patient's positioning and stable chronic congestive heart failure. Will continue home medications: Levothyroxine for primary hypothyroidism, 100 mcg p.o. daily Cognitive impairment/dementia?sertraline 150 mg p.o. at bedtime, donepezil 10 mg p.o. 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 Patient does not appear hypervolemic, no ankle swelling. Patient has high blood pressure. Would benefit from a ARB considering her chronic kidney disease. Discussed with family, will start that portion of the GDMT regiment. Start losartan 25 mg p.o., can add spironolactone as well. Start gentle diuresis with IV Lasix 20 mg every 12 hours, adjust accordingly according to blood pressure and fluid status. Assess breathing. Speech therapy approach me today stated that the patient did very well with the feedings, ate some of her yogurt. New orders placed. Informed the family, that we will have new ASSOCIATE PROFESSOR OF PHYSICS recommendations when she is discharged back to [facility] facility. DVT prophylaxis: Subcu Lovenox GI prophylaxis: Famotidine 20 mg p.o. twice daily PDMP PDMP Reviewed: Not Reviewed Attestations 2 Medical Necessity Statement*: Will provide supportive care for patient, monitor respiratory status. Plan will be to discharge in 1-2 midnights to [facility] facility. Diagnoses Abdominal pain R10.9
--- NOTE | 2025-02-21 14:37 | XRR_ITS ---
PROCEDURE INFORMATION: Exam: XR Chest Exam date and time: 02/21/2025 6:31 PM Age: 84 years old Clinical indication: F/u pleural effusion TECHNIQUE: Imaging protocol: Radiologic exam of the chest. Views: 1 view. COMPARISON: CR XR chest 1V portable [id number] 02/19/2025 3:49 PM FINDINGS: Lungs: Compressive atelectasis versus bilateral lower lobe infiltrates. Stable small nodule in right mid lung. Pleural spaces: Small bilateral pleural effusions. Heart/Mediastinum: Unremarkable. No cardiomegaly. Bones/joints: No interval change. No acute findings. XR/XR chest 1V portable [id number] IMPRESSION: 1. Compressive atelectasis versus bilateral lower lobe infiltrates. 2. Small bilateral pleural effusions.
--- NOTE | 2025-02-21 23:14 | ECG_ITS ---
[employer] Test Date: 2025-02-21 Pat Name: Lanny Zamudio Department: Room: 277 Gender: Female Switchboard Inspector: : [id number] Requested By: Rishi Gonzalez Order Number: [id number] Jania MD: ASHLEIGH LEE Measurements Intervals [place] Rate: 67 P: 30 VA: 173 QRS: -33 QRSD: 128 T: -19 QT: 377 QTc: 398 Interpretive Statements SINUS RHYTHM INDETERMINATE AXIS RIGHT BUNDLE BRANCH BLOCK [120+ ms QRS DURATION, UPRIGHT V1, 40+ ms S IN I/aVL/V4/V5/V6] POSSIBLE ANTERIOR MYOCARDIAL INFARCTION , OF INDETERMINATE AGE [30 ms Q WAVE IN V3/V4, OR R < 0.2 mV IN V4] INFERIOR MYOCARDIAL INFARCTION , OF INDETERMINATE AGE [40+ ms Q WAVE AND/OR ST/T ABNORMALITY IN II/aVF] Compared to ECG 02/19/2025 21:56:03 Indeterminate axis now present Right bundle-branch block now present Myocardial infarct finding still present Electronically Signed On 02-21-2025 23:16:14 BREAKER OILER by ASHLEIGH LEE [email or web address]
[2025-02-22] VITALS: BP 144/84; PULSE 97; RESP 19; TEMP 36.4; O2SAT 89
[2025-02-22 04:00] VITALS: BP 158/88; PULSE 101; RESP 20; TEMP 36.6; O2SAT 91
--- NOTE | 2025-02-22 04:33 | PC.NURSE ---
EKG performed at 2314 on 02/21/25 is documented on wrong patient. RT aware to change report to correct chart.
--- NOTE | 2025-02-22 05:14 | PC.NURSE ---
Patient refused morning meds
[2025-02-22 06:00] VITALS: BMI 27.8
[2025-02-22 07:44] VITALS: BP 128/81; PULSE 103; RESP 20; TEMP 36.7; O2SAT 94
[2025-02-22] MEDS: FUROsemide 10 mg/mL SDV 2mL 20 MG IVP (07:59)
--- NOTE | 2025-02-22 08:44 | P.DS_ITS ---
Discharge Providers Date of Admission: 02/19/25 17:29 Date of Discharge: February 22, 2025 Attending Provider at Admission: Rishi Gonzalez MD Attending Provider at Discharge: Rishi Gonzalez MD Primary Care Provider: Goldy Segura DO Diagnoses at Discharge Discharge Diagnosis 1. Abdominal pain: Reason for Visit Reason for Visit: N/V Brief History: 84-year-old female with cognitive impair ment/dementia, recently treated for UTI. Seen in the ER for continuous nausea and vomiting, mild abdominal pain. P resented to [facility] unit, stable. Vital stable. She does have a low EF, has nonischemic cardiomyopathy and heart failure with reduced ejection fraction. CT of the abdomen pelvis came back, shows some bladder wall thickening, possible interstitial cystitis, but UA was negative. Patient was managed supportively. Diagnoses: Heart failure with reduced ejection fraction, nonischemic cardiomyopathy Hypovolemia with demand ischemia, now euvolemic Acute UTI, status post treatment with antibiotics. Interstitial cystitis seen on CT, UA negative. Denies symptoms, residual. Abdominal pain?urinary source? Likely postinfectious urgency/dysuria. No acute findings on CT. No resolved. Bilateral pleural effusions?with compressive atelectasis, possibly chronic. Shortness of breath resolved. Patient likely had a aspiration pneumonitis at the correction facility, and she had the benefit of receiving speech- language pathology services here to make the new recommendations, which are listed below. Plan: Patient's cooperation was limited, at times combative so unfortunately I could not provide her the guidance on 100% of what she needs, but I can provide the below recommendations for you: Will continue home medications: Levothyroxine for primary hypothyroidism, 100 mcg p.o. daily Cognitive impairment/dementia?sertraline 150 mg p.o. at bedtime, donepezil 10 mg p.o. 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 Patient does not appear hypervolemic, no ankle swelling. Patient has high blood pressure. Would benefit from a ARB considering her chronic kidney disease. Discussed with family, will start that portion of the GDMT regiment. Start losartan 25 mg p.o, his blood pressure has been high during his admission. I will provide 40 mg daily dose of furosemide so patient can keep the fluid off and not come back to the hospital., adjust accordingly according to blood pressure and fluid status. Speech therapy approach me prior to discharge and stated that the patient did very well with the feedings, ate some of her yogurt. New orders placed. Informed the family, that we will have new RING SPINNER recommendations when she is discharged back to correction facility. Discharge Data Studies Completed and Pending Completed Studies During Hospitalization Category Date Time Status CT abdomen pelvis wo con [id number] Urgent Cat Scan 02/19/25 16:00 Completed XR chest 1V portable [id number] Routine Exams 02/21/25 14:37 Completed XR chest 1V portable [id number] Stat Exams 02/19/25 15:35 Completed CV. echo complete* [id number] Stat Ultrasound 02/19/25 17:38 Completed Pending at discharge Category Date Time Status Blood Culture Stat Lab 02/19/25 16:41 Results CBC Auto Diff [Complete Blood Count w/Auto] AM LABS Lab 02/22/25 04:00 Ordered Comprehensive Metabolic Panel AM LABS Lab 02/22/25 04:00 Ordered Magnesium AM LABS Lab 02/22/25 04:00 Ordered Phosphorus AM LABS Lab 02/22/25 04:00 Ordered UA w/Reflex to Microscope [Urinalysis] Routine Lab 02/21/25 14:09 Uncollected Radiology Impressions Abdomen/Pelvis CT 02/19/25 16:00 IMPRESSION: 1. There is urinary bladder wall thickening with perivesicular stranding as well as foci of air that appears to be within the wall anteriorly. Correlate for recent instrumentation versus emphysematous cystitis. 2. Moderate to large bilateral pleural effusions with adjacent compressive atelectasis. 3. Small amount of pelvic free fluid. Chest X-Ray 02/21/25 14:37 IMPRESSION: 1. Compressive atelectasis versus bilateral lower lobe infiltrates. 2. Small bilateral pleural effusions. Laboratory Results WBC 10.32 10^3/uL (3.29-11.43) 02/21/25 04:34 RBC 5.30 10^6/uL (3.85-5.65) 02/21/25 04:34 Hgb 12.60 g/dL (11.27-16.99) 02/21/25 04:34 Hct 42.7 % (36-47) 02/21/25 04:34 MCV 80.6 fl (85-98) L 02/21/25 04:34 MCH 23.8 pg (27-33) L 02/21/25 04:34 MCHC 29.5 g/dL (30-55) L 02/21/25 04:34 RDW 16.4 % (12.1-15.1) H 02/21/25 04:34 Plt Count 135 10^3/cmm (157-399) L 02/21/25 04:34 MPV 11.9 fL (7.4-10.4) H 02/21/25 04:34 Neut % (Auto) 76.3 % 02/21/25 04:34 Lymph % (Auto) 12.3 % 02/21/25 04:34 Dent % (Auto) 10.2 % 02/21/25 04:34 Eos % (Auto) 0.4 % 02/21/25 04:34 Baso % (Auto) 0.2 % 02/21/25 04:34 Neut # (Auto) 7.88 10^3/uL (1.8-7.7) H 02/21/25 04:34 Lymph # (Auto) 1.3 10^3/uL (0.8-4.8) 02/21/25 04:34 Dent # (Auto) 1.1 10^3/uL (0.2-0.9) H 02/21/25 04:34 Eos # (Auto) 0.0 10^3/uL (0.0-0.8) 02/21/25 04:34 Baso # (Auto) 0.0 10^3/uL (0.0-0.1) 02/21/25 04:34 Nucleated RBC % (auto) 0.3 % 02/21/25 04:34 Nucleated RBCs # 0.0 /100WBC 02/21/25 04:34 PT 15.50 SECONDS (12.1-14.9) H 02/19/25 15:35 INR 1.15 (0.8-1.2) 02/19/25 15:35 APTT 35.7 SECONDS (23.9-36.7) 02/19/25 15:35 Sodium 144 mmol/L (136-145) 02/21/25 04:34 Potassium 4.4 mmol/L (3.5-5.1) 02/21/25 04:34 Chloride 105 mmol/L (98-107) 02/21/25 04:34 Carbon Dioxide 23 mmol/L (22-29) 02/21/25 04:34 Anion Gap 20.4 (5-19) H 02/21/25 04:34 BUN 64 mg/dL (8-23) H 02/21/25 04:34 Creatinine 2.3 mg/dL (0.5-0.9) H 02/21/25 04:34 GFR Calculation Not Reportable 02/21/25 04:34 Glucose 142 mg/dL (65-115) H 02/21/25 04:34 Calculated Osmolality 319 mOsm/kg (285-295) H 02/21/25 04:34 Lactic Acid 1.7 mmol/L (0.5-2.2) 02/19/25 15:33 Calcium 9.3 mg/dL (8.5-10.5) 02/21/25 04:34 Phosphorus 3.8 mg/dL (2.5-4.5) 02/21/25 04:34 Magnesium 2.3 mg/dL (1.7-2.3) 02/21/25 04:34 Total Bilirubin 1.0 mg/dL (0.15-1.2) 02/21/25 04:34 AST 52 U/L (0-32) H 02/21/25 04:34 ALT 150 U/L (0-33) H 02/21/25 04:34 Alkaline Phosphatase 355 U/L (35-105) H 02/21/25 04:34 Troponin T Baseline 161 ng/L (0-10) H* 02/19/25 15:33 Troponin T 60 Minute 146.0 ng/L (0-10) H 02/19/25 16:40 Delta Troponin T -15.0 ABS# (0-10) L 02/19/25 16:40 Troponin T Hi Sens 6Hr 137.4 ng/L (0-10) H 02/19/25 21:58 Troponin T Hi Sens 6Hr Delta -23.6 ng/L (0-12) L 02/19/25 21:58 NT-Pro-B Natriuret Pep 38979 pg/mL (0-450) H 02/19/25 15:33 Total Protein 6.3 g/dL (6.6-8.7) L 02/21/25 04:34 Albumin 3.2 g/dL (3.5-5.2) L 02/21/25 04:34 Globulin 3.1 g/dL (1.3-4.6) 02/21/25 04:34 Lipase 50 U/L (13-60) 02/19/25 15:33 TSH 3.70 uIU/mL (0.27-4.20) 02/21/25 04:34 Urine Color Dark yellow (Yellow) A 02/19/25 17:01 Urine Appearance Clear (CLEAR) 02/19/25 17:01 Urine pH 5.0 (5-7) 02/19/25 17:01 Ur Specific Burden 1.020 (1.005-1.030) 02/19/25 17:01 Urine Protein 3+ (Negative) A 02/19/25 17:01 Urine Glucose (UA) Negative (Normal) 02/19/25 17:01 Urine Ketones Negative (Negative) 02/19/25 17:01 Urine Blood 2+ (Negative) A 02/19/25 17:01 Urine Nitrate Negative (Negative) 02/19/25 17:01 Urine Bilirubin Negative (Negative) 02/19/25 17:01 Urine Urobilinogen 1.0 mg/dL (Negative) 02/19/25 17:01 Ur Leukocyte Esterase Negative (Negative) 02/19/25 17:01 Urine RBC 0-2 /hpf (0-2) 02/19/25 17:01 Urine WBC 0-5 /hpf (0-5) 02/19/25 17:01 Ur Squamous Epith Cells 0-5 /hpf (0-5) 02/19/25 17:01 Amorphous Sediment 1+ /hpf 02/19/25 17:01 Urine Bacteria None seen /hpf (NONE) 02/19/25 17:01 Hyaline Casts 11.97 /lpf 02/19/25 17:01 Vitals Last Vital Signs Temp 98.1 F 02/22/25 07:44 Pulse 103 H 02/22/25 07:44 Resp 20 H 02/22/25 07:44 BP 128/81 02/22/25 07:44 Pulse Ox 94 02/22/25 07:44 O2 Del Method Nasal Cannula 02/22/25 07:44 O2 Flow Rate 2 02/22/25 07:44 Discharge Plan Discharge Patient Disposition: Xfer SNF Condition: Stable Prescriptions: New furosemide 40 mg Tablet 40 mg PO DAILY@0800 Qty: 60 0RF Continued acetaminophen 325 mg Tablet 650 mg PO Q6H PRN (Reason: pain/increased temp) hydrocodone-acetaminophen 5-325 mg tablet 1 tab PO TID lisinopril 20 mg tablet 20 mg PO DAILY sertraline 100 mg tablet 150 mg PO BEDTIME levothyroxine 100 mcg tablet 100 mcg PO DAILY magnesium hydroxide [Milk of Magnesia] 400 mg/5 mL Suspension 400 mg PO DAILY PRN (Reason: Constipation) benzonatate 100 mg Capsule 100 mg PO BID PRN (Reason: Cough) bisacodyl 10 mg Suppository 10 mg NV DAILY PRN (Reason: Constipation) Fleet Enema 19-7 gram/118 mL Enema 118 ml NV DAILY PRN (Reason: Constipation) bisacodyl [Laxative (bisacodyl)] 5 mg tablet,delayed release (DR/EC) 10 mg PO DAILY PRN (Reason: Constipation) loratadine [Claritin] 10 mg Tablet 10 mg PO DAILY PRN (Reason: allergies) Refresh Classic (PF) 1.4-0.6 % Dropperette 1 drp OPHTHALMIC (EYE) Q2H PRN (Reason: Dry Eyes) donepezil 10 mg tablet,disintegrating 10 mg PO BEDTIME menthol-zinc oxide [Calmoseptine] 0.44-20.6 % Ointment See Rx Instructions .ROUTE .COMPLEX PRN (Reason: skin rash) Rx Instructions: Apply a small amount topically to buttocks every shift and as needed. Cough Drops 7.6 mg lozenge 7.6 mg PO Q2H PRN (Reason: cough/sore throat) Discontinued furosemide 20 mg tablet 20 mg PO .QOD nitrofurantoin monohyd/m-cryst 100 mg capsule 100 mg PO BID Referrals: Goldy Segura DO [Primary Care Provider, Internal Medicine] Discharge Diet: As Directed Discharge Activity: Resume usual activity Patient Instructions: Congestive Heart Failure Activity Restrictions/Additional Instructions: RING SPINNER speech/language evaluation recommendations: Liquid consistency recommendations by speech therapy is moderately thick/liquidiz Dietary consistency: Moderately thick/liquidiz Limits size of spoonfuls to: 1/2 teaspoon Compensate Tory techniques: Chin tuck, double swallow, effortful swallow Reflux/aspiration: Up to 30 minutes post eat/drink check for signs and symptoms of aspiration Medication and administration forms: With liquid Discharge Attestations Time Spent in Discharge Care*: greater than 30 min Quality Metrics Clinical Quality Measures [ No reported AMI, CVA or VTE this stay] Coding Level of Care Code Acute Code for Chg Fwd Diagnoses Abdominal pain R10.9
[2025-02-22 10:04] LABS: SARS Covid-2 Antigen Negative (Negative)
[2025-02-22 11:12] VITALS: BP 140/81; PULSE 101; RESP 15; TEMP 36.8; O2SAT 90
--- NOTE | 2025-02-22 12:49 | PC.OT ---
OT TREATMENT HELD TODAY DUE TO SCHEDULED PATIENT D/C TODAY
--- NOTE | 2025-02-22 13:18 | PC.SOCIAL ---
IMM Updated Updated pt on IMM. No questions voiced. Provided pt a copy. Initialed, dated, & timed a copy & placed in chart.
[2025-02-22] MEDS: HYDROcodone-acetaminophen 5-325 mg Tablet 1 TAB PO (14:15)
[2025-02-22 15:28] VITALS: BP 140/81; PULSE 101; RESP 15; TEMP 36.8; O2SAT 90
== END 2025-02-22 15:30 | disposition skilled nursing facility (03) | DRG 291 ==
LOC: ER 17:36 → ER IP 18:04 → MEDSURG 18:21
PROVIDERS: Emergency Medicine; Admitting Provider Internal Medicine; Emergency Provider Physician Assistant; PCP Internal Medicine; Visit Provider Internal Medicine
DX: I13.0 Hypertensive heart and chronic kidney disease with heart failure and stage 1 through stage 4 chronic kidney disease, or unspecified chronic kidney disease (principal); I50.23 Acute on chronic systolic (congestive) heart failure; F03.911 Unspecified dementia, unspecified severity, with agitation; I24.89 Other forms of acute ischemic heart disease; N18.30 Chronic kidney disease, stage 3 unspecified; N30.10 Interstitial cystitis (chronic) without hematuria; I42.8 Other cardiomyopathies; E86.1 Hypovolemia; E03.9 Hypothyroidism, unspecified; R09.02 Hypoxemia; R10.9 Unspecified abdominal pain; Z87.440 Personal history of urinary (tract) infections
CPT/HCPCS: 36415; 71045; 74176; 80053; 81001; 83605; 83690; 83735; 83880; 84100; 84443; 84484; 85025; 85610; 85730; 87040; 87426; 92610; 93005; 93306; 96372; 96374; 96375; 97161; 97165; 99285; J0696; J1650; J1938; J7120; J9999